=== PATIENT | male | born 1955 | race African-American/Black ===

== ENCOUNTER 2016-10-12 06:55 | Day surgery (SDC) | payer MEDICARE, OTHER ==
[2016-10-12] MEDS ORDERED: Lactated Ringers 1,000 ML IV SCH (07:30)
[2016-10-12] MEDS ORDERED: Propofol 200 MG/20 ML SDV IV ONE (09:00)
[2016-10-12] MEDS ORDERED: Simethicone Drops 40 MG/0.6 ML 30 ML Bottle ONE (09:16)
--- NOTE | 2016-10-12 09:36 | PCM.OPNOTE ---
- General Post-Op/Procedure Note Date of Surgery/Procedure: 10/12/16 Operative Procedure(s): c scope with bx Findings: transverse colon polyp Pre Op Diagnosis: screening Post-Op Diagnosis: transverse colon polyp Anesthesia Technique: MAC (s) Primary Surgeon: Rick Trinidad Anesthesia Provider: Jorge Mix Pathology: transverse colon polyp Complications: None Condition: Good Free Text/Narrative:: see dictation
--- NOTE | 2016-10-12 10:13 | OR ---
DATE OF OPERATION: 10/12/2016 SURGEON: Rick Trinidad MD PROCEDURE PERFORMED: Colonoscopy with cold forceps biopsy. PREOPERATIVE DIAGNOSIS: Need for screening colonoscope. POSTOPERATIVE DIAGNOSIS: Transverse colon polyp. INDICATIONS FOR PROCEDURE: This is a 61-year-old black male who is referred for his initial screening colonoscopy. He was offered and accepted same. DESCRIPTION OF OPERATION: After an excellent IV sedation was administered, digital rectal exam was performed. No marked abnormality was noted. Flexible colonoscope was inserted and advanced to the cecum without difficulty. The prep was excellent. The following findings were noted. Ascending colon, unremarkable. Transverse colon, a small polypoid lesion, biopsied with cold biopsy forceps and sent for permanent. Descending colon, unremarkable. Sigmoid and rectum unremarkable. Colon was deflated. The scope was removed. The patient tolerated the procedure well, and was taken to recovery room in good condition. /[id number] /SRINIVASL
[2016-10-12 10:22] VITALS: BP 141/73
== END 2016-10-12 10:56 | disposition home or self-care (01) ==
LOC: FB.SDS 06:55
PROVIDERS: ATTEND Surgery
DX: Z12.11 Encounter for screening for malignant neoplasm of colon (principal); K63.5 Polyp of colon; E11.621 Type 2 diabetes mellitus with foot ulcer; E03.9 Hypothyroidism, unspecified; E66.9 Obesity, unspecified; E78.2 Mixed hyperlipidemia; E11.22 Type 2 diabetes mellitus with diabetic chronic kidney disease; I12.9 Hypertensive chronic kidney disease with stage 1 through stage 4 chronic kidney disease, or unspecified chronic kidney disease; N18.9 Chronic kidney disease, unspecified; I21.3 ST elevation (STEMI) myocardial infarction of unspecified site; Z79.4 Long term (current) use of insulin; Z79.899 Other long term (current) drug therapy; Z79.82 Long term (current) use of aspirin; Z98.890 Other specified postprocedural states; Z87.891 Personal history of nicotine dependence
CPT/HCPCS: 00810; 45380; 82962; 88305; A9270; J2704; J7120

== ENCOUNTER 2017-06-21 11:19 | Inpatient (IN) | payer MEDICARE, OTHER ==
[2017-06-21] MEDS ORDERED: Furosemide 100 MG/10 ML SDV IVPUSH ONE (12:36)
[2017-06-21] MEDS: Sodium Chloride 0.9% 10 ML Syringe FLUSH PRN (13:50)
[2017-06-21] MEDS ORDERED: Bisacodyl 5 MG Tab PO PRN (14:18)
--- NOTE | 2017-06-21 15:40 | PCM.HP ---
H&P History of Present Illness - General Date of Service: 06/21/17 Admit Problem/Dx: Admission Diagnosis/Problem Admission Diagnosis/Problem CHF, Congestive heart failure Source of Information: Patient History Limitations: Reports: No Limitations - History of Present Illness Initial Comments - Free Text/Narative: This is a 62-year-old -[place] gentleman that comes in to the clinic and sees the nurse practitioner today for 30 pound weight gain last month and half swollen testicles short of breath. She stated he walked and his saturations 84%. He has a history of CHF and has been in the hospital for this before. He is on Lasix 40 mg twice a day currently. He denies runny nose, sore throat, ear pain, nasal congestion, cough, wheezing, fevers or chills. He denies chest pain. He has amputation of the right leg in the left leg has some swelling. - Related Data Allergies/Adverse Reactions: Allergies Allergy/AdvReac Type Severity Reaction Status Date / Time No Known Allergies Allergy Verified 06/21/17 13:42 Home Medications: Home Meds Multivitamins/Min/Ca/FA/Iron [Thera-M] 1 tab PO DAILY 12/22/15 [History] Omeprazole 20 mg PO BID 12/22/15 [History] Spironolact/Hydrochlorothiazid [Spironolactone-HCTZ 25-25] 0.5 tab PO DAILY [History] amLODIPine [Norvasc] 5 mg PO DAILY PRN 12/22/15 [History] amLODIPine/Benazepril [Lotrel 5-10 MG] 1 cap PO DAILY 12/22/15 [History] atorvaSTATin [Lipitor] 40 mg PO DAILY 12/22/15 [History] Aspirin [Ecotrin] 81 mg PO DAILY 10/11/16 [History] Bisacodyl [Dulcolax] 10 mg PO DAILY PRN 10/11/16 [History] Clopidogrel Bisulfate [Clopidogrel] 75 mg PO DAILY 10/11/16 [History] Furosemide 40 mg PO BID 10/11/16 [History] Insulin Glargine,Hum.Rec.Anlog [Touyadirao Solostar] 14 units SQ DAILY 10/11/16 [ History] Levothyroxine [Synthroid] 100 mcg PO DAILY 10/11/16 [History] Beet Root 2 tab PO DAILY 06/21/17 [History] Cholecalciferol (Vitamin D3) [Vitamin D3] 2,000 unit PO DAILY 06/21/17 [History] Cinnamon Bark [Cinnamon] 1,000 mg PO BID 06/21/17 [History] Past Medical History HEENT History: Reports: Cataract, Impaired Vision Other HEENT History: DIABETIC RETINOPATHY Cardiovascular History: Reports: Blood Clots/VTE/DVT, Heart Failure, High Cholesterol, Hypertension, NE, SOB on Exertion Respiratory History: Reports: SOB Gastrointestinal History: Reports: None Genitourinary History: Reports: Chronic Renal Insuffiency, Renal Disease Other Genitourinary History: ORCHIETOMY R/T DIABETES, ERECTILE DYSFUNCTION Musculoskeletal History: Reports: Amputation, Other (See Below) Other Musculoskeletal History: OSTEOMYLITIS, BKA OF RIGHT LEG Neurological History: Reports: Migraines Psychiatric History: Reports: None Endocrine/Metabolic History: Reports: Diabetes, Type II, Hypothyroidism, Obesity /BMI 30+ Hematologic History: Reports: Anemia Other Immunologic History: MRSA, HEPATITIS C Oncologic (Cancer) History: Reports: None Dermatologic History: Reports: Psoriasis Other Dermatologic History: PT HAS VERY DRY SKIN TO LEFT LOWER LEG\FOOT. DRY FLAKY SKIN. - Infectious Disease History Infectious Disease History: Reports: Chicken Pox - Past Surgical History Head Surgeries/Procedures: Reports: None HEENT Surgical History: Reports: None Cardiovascular Surgical History: Reports: Coronary Artery Stent Respiratory Surgical History: Reports: None GI Surgical History: Reports: Colonoscopy Endocrine Surgical History: Reports: None Neurological Surgical History: Reports: None Musculoskeletal Surgical History: Reports: Amputation, ORIF Other Musculoskeletal Surgeries/Procedures:: FX SURGERY PER HX Oncologic Surgical History: Reports: None Dermatological Surgical History: Reports: None Social & Family History - Family History Family Medical History: Noncontributory Cardiac: Reports: NE Neurological: Reports: Cerebral Aneurysms - Tobacco Use Smoking Status *Q: Former Smoker Years of Tobacco use: 12 Used Tobacco, but Quit: Yes Month/Year Tobacco Last Used: 10/1981 Second Hand Smoke Exposure: No - Caffeine Use Caffeine Use: Reports: Tea - Alcohol Use Days Per Week of Alcohol Use: 0 Number of Drinks Per Day: 0 Total Drinks Per Week: 0 - Recreational Drug Use Recreational Drug Use: No Drug Use in Last 12 Months: No - Living Situation & Occupation Living situation: Reports: Single Occupation: Unemployed H&P Review of Systems - Review of Systems: Review Of Systems: See Below General: Reports: No Symptoms HEENT: Reports: No Symptoms Pulmonary: Reports: Shortness of Breath. Denies: No Symptoms, Wheezing, Pleuritic Chest Pain, Sputum Cardiovascular: Reports: Dyspnea on Exertion, Edema, Syncope. Denies: Chest Pain Gastrointestinal: Reports: No Symptoms Genitourinary: Reports: Other (Scrotal swelling otherwise negative) Musculoskeletal: Reports: No Symptoms, Other (Status post amputation) Skin: Reports: No Symptoms Psychiatric: Reports: No Symptoms Neurological: Reports: No Symptoms Hematologic/Lymphatic: Reports: No Symptoms Immunologic: Reports: No Symptoms Exam - Exam Exam: See Below - Vital Signs Vital Signs: Last Vital Signs Temp 98.4 F 06/21/17 12:45 Pulse 81 06/21/17 12:45 Resp 24 H 06/21/17 12:45 BP 159/68 H 06/21/17 12:45 Pulse Ox 89 L 06/21/17 12:45 Weight: 314 lb 6 oz - Exam General: Alert, Oriented, Cooperative HEENT: PERRLA, Conjunctiva Clear, EACs Clear, EOMI, Hearing Intact, Mucosa Moist & [place], Posterior Pharynx Clear, TMs Clear Neck: Supple, Trachea Midline, Full Range of Motion, Lymphadenopathy Lungs: Clear to Auscultation, Decreased Breath Sounds, Crackles. No: Rales, Rhonchi Cardiovascular: Regular Rate, Regular Rhythm, Normal S1, Normal S2. No: Bradycardia, Tachycardia, Systolic Murmur, Diastolic Murmur GI/Abdominal Exam: Normal Bowel Sounds, Soft, Non-Tender, No Organomegaly, No Distention, No Abnormal Bruit, No Mass Back Exam: Normal Inspection, Full Range of Motion Extremities: Normal Range of Motion, Non-Tender, Pedal Edema, Other (Amputation) Skin: Warm, Dry, Intact Neurological: Normal Speech, Normal Tone Neuro Extensive - Mental Status: Alert, Oriented x3, Normal Mood/Affect, Normal Cognition, Memory Intact Neuro Extensive - Motor, Sensory, Reflexes: Normal Gait (With prosthesis) - Problem List (1) Palliative care encounter SNOMED Code(s): 694768643 ICD Code: Z51.5 - ENCOUNTER FOR PALLIATIVE CARE Status: Acute Current Visit: Yes (2) Anemia SNOMED Code(s): 976251521 ICD Code: D64.9 - ANEMIA, UNSPECIFIED Status: Acute Current Visit: No Problem Details: Cause is unlcar,but appears chronic. He is on Iron replacement. Will need further work up later,but we will Type and cross and give a unit or two tomorrow,once diuresed adequately (3) CKD (chronic kidney disease) stage 3, GFR 30-59 ml/min SNOMED Code(s): 747911924 ICD Code: N18.3 - CHRONIC KIDNEY DISEASE, STAGE 3 (MODERATE) Status: Acute Current Visit: No Problem Details: Repeat BMP in AM. Diuress liberally (4) Congestive heart failure, diastolic, left, w/preserved LV function, NYHA class 4 SNOMED Code(s): 841596810, 319748072, 140485714, 579477697 ICD Code: I50.30 - UNSPECIFIED DIASTOLIC (CONGESTIVE) HEART FAILURE Status : Acute Current Visit: No (5) Diabetes type 2, controlled SNOMED Code(s): 44226183 ICD Code: E11.9 - TYPE 2 DIABETES MELLITUS WITHOUT COMPLICATIONS Status: Acute Current Visit: No Problem Details: SSI,accuchecks (6) HTN (hypertension) SNOMED Code(s): 79273164 ICD Code: I10 - ESSENTIAL (PRIMARY) HYPERTENSION Status: Chronic Current Visit: No Qualifiers: (7) Obesity SNOMED Code(s): 801324814, 018802073 ICD Code: E66.9 - OBESITY, UNSPECIFIED Status: Chronic Current Visit: No Problem List Initiated/Reviewed/Updated: Yes Orders Last 24hrs: Active Orders 24 hr Category Date Time Status Patient Status [ADT] Routine ADT 06/21/17 12:32 Active Blood Glucose Check, Bedside [RC] 07,1130,1730,21 Care 06/21/17 12:32 Active Cardiac Monitoring [RC] 08,16,00 Care 06/21/17 12:34 Active Height and Weight [RC] 06 Care 06/21/17 12:32 Active Intake and Output [RC] 06,14,22 Care 06/21/17 12:33 Active Oxygen Therapy [RC] PRN Care 06/21/17 12:32 Active Up ad Radames [RC] ASDIRECTED Care 06/21/17 12:32 Active Vital Signs [RC] 04,08,12,16,20,00 Care 06/21/17 12:32 Active 2 Gram Sodium Diet [DIET] Diet 06/21/17 Dinner Active Consistent Carbohydrate Diet [DIET] Diet 06/21/17 Dinner Active CBC WITH AUTO DIFF [HEME] AM Lab 06/22/17 05:11 Ordered COMPREHENSIVE METABOLIC PN,CMP [CHEM] AM Lab 06/22/17 05:11 Ordered UA W/MICROSCOPIC [URIN] Routine Lab 06/21/17 15:28 Ordered Aspirin [Halfprin] Med 06/22/17 09:00 Active 81 mg PO DAILY Benazepril [Lotensin] Med 06/22/17 09:00 Active 10 mg PO DAILY Bisacodyl [Dulcolax] Med 06/21/17 14:18 Active 10 mg PO DAILY PRN Cholecalciferol (Vitamin D3) [Vitamin D3] Med 06/22/17 09:00 Active 2,000 units PO DAILY Clopidogrel [Plavix] Med 06/22/17 09:00 Active 75 mg PO DAILY Hydrochlorothiazide Med 06/22/17 09:00 Active 12.5 mg PO DAILY Insulin Glargine,Hum.Rec.Anlog [Toujeo Solostar] Med 06/22/17 09:00 Ordered 14 units SQ DAILY Levothyroxine [Synthroid] Med 06/22/17 09:00 Active 100 mcg PO DAILY Multivitamins/Minerals [Vitamins and Minerals] Med 06/22/17 09:00 Active 1 tab PO DAILY Pantoprazole [ProTONIX] Med 06/21/17 21:00 Active 40 mg PO BID@0600,2100 SitaGLIPtin [Januvia] Med 06/22/17 09:00 Ordered 100 mg PO DAILY Sodium Chloride 0.9% [Saline Flush] Med 06/21/17 12:32 Active 10 ml FLUSH ASDIRECTED PRN Spironolactone [Aldactone] Med 06/22/17 09:00 Active 12.5 mg PO DAILY amLODIPine [Norvasc] Med 06/22/17 09:00 Active 5 mg PO DAILY amLODIPine [Norvasc] Med 06/22/17 09:00 Active 5 mg PO DAILY PRN atorvaSTATin [Lipitor] Med 06/22/17 09:00 Active 40 mg PO DAILY Peripheral IV Insertion Adult [OM.PC] Routine Oth 06/21/17 12:32 Ordered Sequential Compression Device [OM.PC] Per Unit Routine Oth 06/21/17 12:34 Ordered Resuscitation Status Routine Resus Stat 06/21/17 12:32 Ordered Medication Orders Amlodipine Besylate (Norvasc) 5 mg PO DAILY PRN PRN Reason: SYSTOLIC BP>100 Amlodipine Besylate (Norvasc) 5 mg PO DAILY [facility] Aspirin (Halfprin) 81 mg PO DAILY ARNULFO Atorvastatin Calcium (Lipitor) 40 mg PO DAILY ARNULFO Benazepril HCl (Lotensin) 10 mg PO DAILY ARNULFO Bisacodyl (Dulcolax) 10 mg PO DAILY PRN PRN Reason: Constipation Cholecalciferol (Vitamin D3) 2,000 units PO DAILY [facility] Clopidogrel Bisulfate (Plavix) 75 mg PO DAILY ARNULFO Hydrochlorothiazide (Hydrochlorothiazide) 12.5 mg PO DAILY ARNULFO Levothyroxine Sodium (Synthroid) 100 mcg PO DAILY [facility] Multivitamins/Minerals (Vitamins And Minerals) 1 tab PO DAILY [facility] Non-Formulary Medication (Insulin Glargine,Hum.Rec.Anlog [Chano Botello]) 14 units SQ DAILY [facility] Pantoprazole Sodium (Protonix) 40 mg PO BID@0600,2100 [facility] Sitagliptin Phosphate (Januvia) 100 mg PO DAILY [facility] Sodium Chloride (Saline Flush) 10 ml FLUSH ASDIRECTED PRN PRN Reason: Keep Vein Open Last Admin: 06/21/17 13:50 Dose: 10 ml Spironolactone (Aldactone) 12.5 mg PO DAILY [facility] Assessment/Plan Comment:: 1 admit for diuresis with Lasix. 2. Diabetic low-salt diet. 3. Up ad radames. 4.Patient had an echo in 2016 in [facility] that was reviewed. 5. Continue all his home meds except for his Lasix 6. EKG. 7. Cardiac monitoring. 8. Discussed living hernandez he wants to be full code.
[2017-06-21] MEDS: Furosemide 40 MG/4 ML VIAL IVPUSH SCH (21:14)
[2017-06-21] MEDS: Pantoprazole 40 MG Tab.CR PO SCH (21:14)
[2017-06-22] MEDS: Pantoprazole 40 MG Tab.CR PO SCH ×2 (06:19→21:30)
[2017-06-22] MEDS: Sodium Chloride 0.9% 10 ML Syringe FLUSH PRN (08:32)
[2017-06-22] MEDS: amLODIPine 5 MG Tab PO SCH (08:32)
[2017-06-22] MEDS: Furosemide 40 MG/4 ML VIAL IVPUSH SCH ×2 (08:32→21:30)
[2017-06-22] MEDS: Benazepril 10 MG Tab PO SCH (08:32)
[2017-06-22] MEDS: Spironolactone 25 MG Tab PO SCH (08:33)
[2017-06-22] MEDS: Hydrochlorothiazide 12.5 MG Cap PO SCH (08:33)
[2017-06-22] MEDS: Aspirin 81 MG Tab.EC PO SCH (08:34)
[2017-06-22] MEDS: Cholecalciferol (Vitamin D3) 1,000 Unit Tab PO SCH (08:34)
[2017-06-22] MEDS: atorvaSTATin 40 MG Tab PO SCH (08:34)
[2017-06-22] MEDS: Clopidogrel 75 MG Tab PO SCH (08:34)
[2017-06-22] MEDS: Levothyroxine 100 MCG Tab PO SCH (08:34)
[2017-06-22] MEDS: Multivitamins, Therapeutic with Minerals Tab PO SCH (08:35)
[2017-06-22] MEDS: Insulin Detemir 100 Units/ML 3 ML Pen SUBCUT SCH (08:46)
[2017-06-22] MEDS ORDERED: amLODIPine 5 MG Tab PO PRN (09:00)
--- NOTE | 2017-06-22 10:07 | PCM.PN ---
- General Info Date of Service: 06/22/17 Subjective Update: Mr Esposito was admitted yesterday due to CHF exacerbation,and feels much better today. He has diuresed well, but still has some shortness of breath on ambulation. He is off O2. Functional Status: Reports: Pain Controlled - Review of Systems General: Reports: No Symptoms HEENT: Reports: No Symptoms Pulmonary: Reports: Shortness of Breath, Cough Cardiovascular: Reports: Dyspnea on Exertion, Orthopnea Gastrointestinal: Reports: No Symptoms Genitourinary: Reports: No Symptoms - Patient Data Vitals - Most Recent: Last Vital Signs Temp 98 F 06/22/17 04:00 Pulse 66 06/22/17 04:00 Resp 18 06/22/17 04:00 BP 144/80 H 06/22/17 08:32 Pulse Ox 95 06/22/17 04:00 Weight - Most Recent: 142.519 kg I&O - Last 24 Hours: Intake & Output 06/21/17 06/22/17 06/22/17 22:59 06:59 14:59 Output Total 725 900 Balance -725 -900 Lab Results Last 24 Hours: Laboratory Results - last 24 hr 06/21/17 06/21/17 06/21/17 Range/Units 15:30 17:38 19:05 WBC (4.5-12.0) X10-3/uL RBC (4.30-5.75) x10(6)uL Hgb (11.5-15.5) g/dL Hct (30.0-51.3) % MCV (80-96) fL MCH (27.7-33.6) pg MCHC (32.2-35.4) g/dL RDW (11.5-15.5) % Plt Count (125-369) X10(3)uL MPV (7.4-10.4) fL Neut % (Auto) (46-82) % Lymph % (Auto) (13-37) % [place] % (Auto) (4-12) % Eos % (Auto) (1.0-5.0) % Baso % (Auto) (0-2) % Neut # (Auto) (1.6-8.3) # Lymph # (Auto) (0.6-5.0) # [place] # (Auto) (0.0-1.3) # Eos # (Auto) (0.0-0.8) # Baso # (Auto) (0.0-0.2) # Sodium (135-145) mmol/L Potassium (3.5-5.3) mmol/L Chloride (100-110) mmol/L Carbon Dioxide (21-32) mmol/L BUN (7-18) mg/dL Creatinine (0.70-1.30) mg/dL Est Cr Clr Drug Dosing mL/min Estimated GFR (MDRD) (>60) BUN/Creatinine Ratio (9-20) Glucose (80-116) mg/dL POC Glucose 139 H (80-116) mg/dL Calcium (8.6-10.2) mg/dL Total Bilirubin (0.1-1.3) mg/dL AST (5-25) IU/L ALT (12-36) U/L Alkaline Phosphatase (56-112) IU/L NT-Pro-B Natriuret Pep 4847 H* (<=125) pg/mL Total Protein (6.0-8.0) g/dL Albumin (3.2-4.6) g/dL Globulin g/dL Albumin/Globulin Ratio Urine Color Yellow (YELLOW) Urine Appearance Clear (CLEAR) Urine pH 5.0 (5.0-6.5) Ur Specific [place] 1.010 (1.010-1.025) Urine Protein 30 H (NEGATIVE) mg/dL Urine Glucose (UA) Normal (NEGATIVE) mg/dL Urine Ketones Negative (NEGATIVE) mg/dL Urine Occult Blood Negative (NEGATIVE) Urine Nitrite Negative (NEGATIVE) Urine Bilirubin Negative (NEGATIVE) Urine Urobilinogen Normal (NEGATIVE) mg/dL Ur Leukocyte Esterase Negative (NEGATIVE) Urine RBC 0-5 (0) Urine WBC 0-5 (0) Ur Squamous Epith Cells Moderate H (NS,R,O) Urine Bacteria Moderate H (NS) 06/21/17 06/22/17 06/22/17 Range/Units 19:55 06:15 06:15 WBC 7.3 (4.5-12.0) X10-3/uL RBC 3.63 L (4.30-5.75) x10(6)uL Hgb 8.5 L (11.5-15.5) g/dL Hct 27.5 L (30.0-51.3) % MCV 75.7 L (80-96) fL MCH 23.5 L (27.7-33.6) pg MCHC 31.0 L (32.2-35.4) g/dL RDW 16.8 H (11.5-15.5) % Plt Count 147 (125-369) X10(3)uL MPV 13.4 H (7.4-10.4) fL Neut % (Auto) 65.7 (46-82) % Lymph % (Auto) 23.0 (13-37) % [place] % (Auto) 9.0 (4-12) % Eos % (Auto) 2 (1.0-5.0) % Baso % (Auto) 0 (0-2) % Neut # (Auto) 4.8 (1.6-8.3) # Lymph # (Auto) 1.7 (0.6-5.0) # [place] # (Auto) 0.7 (0.0-1.3) # Eos # (Auto) 0.1 (0.0-0.8) # Baso # (Auto) 0.0 (0.0-0.2) # Sodium 143 (135-145) mmol/L Potassium 4.4 (3.5-5.3) mmol/L Chloride 108 (100-110) mmol/L Carbon Dioxide 28 (21-32) mmol/L BUN 41 H (7-18) mg/dL Creatinine 2.1 H* (0.70-1.30) mg/dL Est Cr Clr Drug Dosing 30.91 mL/min Estimated GFR (MDRD) 39 L (>60) BUN/Creatinine Ratio 19.5 (9-20) Glucose 138 H (80-116) mg/dL POC Glucose 151 H (80-116) mg/dL Calcium 8.3 L (8.6-10.2) mg/dL Total Bilirubin 0.4 (0.1-1.3) mg/dL AST 54 H (5-25) IU/L ALT 65 H (12-36) U/L Alkaline Phosphatase 195 H (56-112) IU/L NT-Pro-B Natriuret Pep (<=125) pg/mL Total Protein 7.5 (6.0-8.0) g/dL Albumin 2.4 L (3.2-4.6) g/dL Globulin 5.1 g/dL Albumin/Globulin Ratio 0.5 Urine Color (YELLOW) Urine Appearance (CLEAR) Urine pH (5.0-6.5) Ur Specific [place] (1.010-1.025) Urine Protein (NEGATIVE) mg/dL Urine Glucose (UA) (NEGATIVE) mg/dL Urine Ketones (NEGATIVE) mg/dL Urine Occult Blood (NEGATIVE) Urine Nitrite (NEGATIVE) Urine Bilirubin (NEGATIVE) Urine Urobilinogen (NEGATIVE) mg/dL Ur Leukocyte Esterase (NEGATIVE) Urine RBC (0) Urine WBC (0) Ur Squamous Epith Cells (NS,R,O) Urine Bacteria (NS) Med Orders - Current: Current Medications Amlodipine Besylate (Norvasc) 5 mg PO DAILY PRN PRN Reason: SYSTOLIC BP>100 Amlodipine Besylate (Norvasc) 5 mg PO DAILY [facility] Last Admin: 06/22/17 08:32 Dose: 5 mg Aspirin (Halfprin) 81 mg PO DAILY [facility] Last Admin: 06/22/17 08:34 Dose: 81 mg Atorvastatin Calcium (Lipitor) 40 mg PO DAILY [facility] Last Admin: 06/22/17 08:34 Dose: 40 mg Benazepril HCl (Lotensin) 10 mg PO DAILY [facility] Last Admin: 06/22/17 08:32 Dose: 10 mg Bisacodyl (Dulcolax) 10 mg PO DAILY PRN PRN Reason: Constipation Cholecalciferol (Vitamin D3) 2,000 units PO DAILY [facility] Last Admin: 06/22/17 08:34 Dose: 2,000 units Clopidogrel Bisulfate (Plavix) 75 mg PO DAILY [facility] Last Admin: 06/22/17 08:34 Dose: 75 mg Furosemide (Lasix) 40 mg IVPUSH BID [facility] Last Admin: 06/22/17 08:32 Dose: 40 mg Hydrochlorothiazide (Hydrochlorothiazide) 12.5 mg PO DAILY [facility] Last Admin: 06/22/17 08:33 Dose: 12.5 mg Insulin Detemir (Levemir) 14 unit SUBCUT DAILY [facility] Last Admin: 06/22/17 08:46 Dose: 14 units Levothyroxine Sodium (Synthroid) 100 mcg PO DAILY [facility] Last Admin: 06/22/17 08:34 Dose: 100 mcg Multivitamins/Minerals (Vitamins And Minerals) 1 tab PO DAILY [facility] Last Admin: 06/22/17 08:35 Dose: 1 tab Pantoprazole Sodium (Protonix) 40 mg PO BID@0600,2100 [facility] Last Admin: 06/22/17 06:19 Dose: 40 mg Sodium Chloride (Saline Flush) 10 ml FLUSH ASDIRECTED PRN PRN Reason: Keep Vein Open Last Admin: 06/22/17 08:32 Dose: 10 ml Spironolactone (Aldactone) 12.5 mg PO DAILY [facility] Last Admin: 06/22/17 08:33 Dose: 12.5 mg Discontinued Medications Furosemide (Lasix) 80 mg IVPUSH NOW ONE Stop: 06/21/17 12:37 Last Admin: 06/21/17 13:50 Dose: 80 mg - Exam Quality Assessment: No: Supplemental Oxygen General: Alert HEENT: Pupils Equal Neck: Supple Lungs: Normal Respiratory Effort, Rales Cardiovascular: Regular Rate, Regular Rhythm Skin: Warm, Dry, Intact Psy/Mental Status: Alert, Normal Affect, Normal Mood EKG INTERPRETATION EKG Date: 06/21/17 Rhythm: NSR - Problem List & Annotations (1) Congestive heart failure, diastolic, left, w/preserved LV function, NYHA class 4 SNOMED Code(s): 043514060, 013047162, 406859068, 610106093 Code(s): I50.30 - UNSPECIFIED DIASTOLIC (CONGESTIVE) HEART FAILURE Status: Acute Current Visit: No (2) Hx of BKA Status: Chronic Current Visit: Yes Qualifiers: Laterality: right Qualified Code(s): Z89.511 - Acquired absence of right leg below knee (3) Anemia SNOMED Code(s): 538814864 Code(s): D64.9 - ANEMIA, UNSPECIFIED Status: Chronic Current Visit: No Qualifiers: Anemia type: due to chronic kidney disease Chronic kidney disease stage: stage 3 (moderate) Qualified Code(s): N18.3 - Chronic kidney disease, stage 3 (moderate); D63.1 - Anemia in chronic kidney disease (4) CKD (chronic kidney disease) stage 3, GFR 30-59 ml/min SNOMED Code(s): 342734658 Code(s): N18.3 - CHRONIC KIDNEY DISEASE, STAGE 3 (MODERATE) Status: Acute Current Visit: No Annotation/Comment:: Repeat BMP in AM. (5) Diabetes type 2, controlled SNOMED Code(s): 27241223 Code(s): E11.9 - TYPE 2 DIABETES MELLITUS WITHOUT COMPLICATIONS Status: Acute Current Visit: No Qualifiers: Diabetes mellitus regional intermodal truck driver insulin use: with regional intermodal truck driver use Diabetes mellitus complication status: with kidney complications Chronic kidney disease stage: stage 3 (moderate) Annotation/Comment:: SSI,accuchecks (6) HTN (hypertension) SNOMED Code(s): 00467451 Code(s): I10 - ESSENTIAL (PRIMARY) HYPERTENSION Status: Chronic Current Visit: No Qualifiers: Hypertension type: essential hypertension Qualified Code(s): I10 - Essential (primary) hypertension (7) Hypothyroid SNOMED Code(s): 85491298 Code(s): E03.9 - HYPOTHYROIDISM, UNSPECIFIED Status: Chronic Current Visit: No Qualifiers: Hypothyroidism type: unspecified Qualified Code(s): E03.9 - Hypothyroidism , unspecified Annotation/Comment:: Recheck TSH,continue home meds (8) Obesity SNOMED Code(s): 558530607, 380541267 Code(s): E66.9 - OBESITY, UNSPECIFIED Status: Chronic Current Visit: No - Problem List Review Problem List Initiated/Reviewed/Updated: Yes - My Orders Last 24 Hours: My Active Orders 06/23/17 05:11 BASIC METABOLIC PANEL,BMP [CHEM] AM PRO B-TYPE NATRIUR PEPT,BNPPRO [CHEM] DAILY TROPONIN I [CHEM] AM 06/23/17 09:33 Echo Comp wo Cont [US] Timed 06/24/17 05:11 PRO B-TYPE NATRIUR PEPT,BNPPRO [CHEM] DAILY - Plan Plan:: Shahbaz's last echocardiogram was in 2016. SUCH, I have ordered for repeat echocardiography tomorrow, & will continue with 40 mg of IV Lasix and repeat BMP ,BNP and CBC in the morning. His creatinine baseline is usually between 1.6 and 1.9, is 2.1 this morning. We'll keep an eye on it and repeat that tomorrow. He has chronic anemia,DUE TO ckd,stable.
[2017-06-23] MEDS: Pantoprazole 40 MG Tab.CR PO SCH (05:41)
[2017-06-23] MEDS: Sodium Chloride 0.9% 10 ML Syringe FLUSH PRN (08:50)
[2017-06-23] MEDS: Furosemide 40 MG/4 ML VIAL IVPUSH SCH ×2 (08:53→09:12)
[2017-06-23] MEDS: Spironolactone 25 MG Tab PO SCH (08:53)
[2017-06-23] MEDS: Aspirin 81 MG Tab.EC PO SCH (08:53)
[2017-06-23] MEDS: Hydrochlorothiazide 12.5 MG Cap PO SCH (08:53)
[2017-06-23] MEDS: Insulin Detemir 100 Units/ML 3 ML Pen SUBCUT SCH (08:54)
[2017-06-23] MEDS: amLODIPine 5 MG Tab PO SCH (08:55)
[2017-06-23] MEDS: Benazepril 10 MG Tab PO SCH (08:55)
[2017-06-23] MEDS: atorvaSTATin 40 MG Tab PO SCH (08:55)
[2017-06-23] MEDS: Levothyroxine 100 MCG Tab PO SCH (08:56)
[2017-06-23] MEDS: Clopidogrel 75 MG Tab PO SCH (08:56)
[2017-06-23] MEDS: Cholecalciferol (Vitamin D3) 1,000 Unit Tab PO SCH (08:57)
[2017-06-23] MEDS: Multivitamins, Therapeutic with Minerals Tab PO SCH (08:57)
[2017-06-23] MEDS ORDERED: Metolazone 2.5 MG Tab PO ONE (09:15)
[2017-06-23] MEDS ORDERED: Furosemide 40 MG Tab PO SCH (10:00)
[2017-06-23 12:58] VITALS: BP 177/93
--- NOTE | 2017-06-23 14:17 | PCM.DCSUM1 ---
Discharge Summary - Hospital Course Free Text/Narrative:: Date of admission: 06/21/17 Date of discharge: 06/23/17 Admission diagnosis: Congestive heart failure with anasarca, probably diastolic with preserved ejection fraction. Discharge diagnosis: Congestive heart failure with anasarca, improved, with ejection fraction 57% on preliminary echo report. Consults: None Procedures: Echocardiogram (see results below) History of present illness: Mr. Esposito is a 62-year-old -[place] male who over the last month has developed about a 30 pound weight gain, with swollen lower extremities up into the scrotum and testicles, shortness of breath. He presented to the clinic with saturations in the low 80s and was admitted for diuresis. Discharge instructions: Discharge to home. Follow-up early next week on Monday or Monday with his primary care provider for a BMP. Diuretics will likely need to be adjusted. Message sent through electronic medical record to primary care provider. Patient and provider aware of the pulmonary hypertension noted on imaging. - Discharge Data Discharge Date: 06/23/17 Discharge Disposition: Home, Self-Care 01 Condition: Good - Discharge Diagnosis/Problem(s) (1) Congestive heart failure, diastolic, left, w/preserved LV function, NYHA class 4 SNOMED Code(s): 516915522, 374407610, 496387794, 339831867 ICD Code: I50.30 - UNSPECIFIED DIASTOLIC (CONGESTIVE) HEART FAILURE Status : Acute Current Visit: No Problem Details: Patient diuresed with IV Lasix. On the day of discharge, was started on oral Lasix with the addition of Zaroxolyn every other day. Will be discharged home on this. Echocardiogram showed ejection fraction 56.7% which is similar to previous echo on 12/22/15 of 60%. Left ventricular hypertrophy, trace mitral regurgitation, sclerosis of the aortic valve with no regurgitation, severe pulmonary hypertension, mild tricuspid regurgitation, trace pulmonary regurgitation, technically difficult study due to patient body habitus. Official report still pending. Patient will be discharged home on diuretic therapy as above. Follow-up on Monday or Monday of next week for BMP to check renal function and follow weights daily. (2) Anasarca SNOMED Code(s): 330573512, 852642076 ICD Code: R60.1 - GENERALIZED EDEMA Status: Acute Current Visit: No Problem Details: Improved. Continue diuresis at home with Lasix and Zaroxolyn as above. (3) CKD (chronic kidney disease) stage 3, GFR 30-59 ml/min SNOMED Code(s): 599870084 ICD Code: N18.3 - CHRONIC KIDNEY DISEASE, STAGE 3 (MODERATE) Status: Acute Current Visit: No Problem Details: Monitor as outpatient with diuretic therapy. (4) Diabetes type 2, controlled SNOMED Code(s): 00942715 ICD Code: E11.9 - TYPE 2 DIABETES MELLITUS WITHOUT COMPLICATIONS Status: Acute Current Visit: No Problem Details: Continue once daily insulin at home. 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 We'll defer any further workup to the patient's PCP. Qualifiers: Anemia type: due to chronic kidney disease Chronic kidney disease stage: stage 3 (moderate) Qualified Code(s): N18.3 - Chronic kidney disease, stage 3 (moderate); D63.1 - Anemia in chronic kidney disease (6) HTN (hypertension) SNOMED Code(s): 77801929 ICD Code: I10 - ESSENTIAL (PRIMARY) HYPERTENSION Status: Chronic Current Visit: No Problem Details: Ran high into the 160s during hospitalization. After diuresis, reassess. Qualifiers: Hypertension type: essential hypertension Qualified Code(s): I10 - Essential (primary) hypertension - Patient Instructions Diet: Heart Healthy Diet, Low Sodium, Diabetic Diet Activity: No Strenuous Activities Driving: May Drive Today - Discharge Plan Prescriptions/Med Rec: Metolazone [Zaroxolyn] 2.5 mg PO ONETIME #30 tablet Spironolactone [Aldactone] 12.5 mg PO DAILY #30 tablet Home Medications: Home Meds Multivitamins/Min/Ca/FA/Iron [Thera-M] 1 tab PO DAILY 12/22/15 [History] Omeprazole 20 mg PO BID 12/22/15 [History] amLODIPine [Norvasc] 5 mg PO DAILY PRN 12/22/15 [History] amLODIPine/Benazepril [Lotrel 5-10 MG] 1 cap PO DAILY 12/22/15 [History] atorvaSTATin [Lipitor] 40 mg PO DAILY 12/22/15 [History] Aspirin [Ecotrin] 81 mg PO DAILY 10/11/16 [History] Bisacodyl [Dulcolax] 10 mg PO DAILY PRN 10/11/16 [History] Clopidogrel Bisulfate [Clopidogrel] 75 mg PO DAILY 10/11/16 [History] Furosemide 40 mg PO BID 10/11/16 [History] Insulin Glargine,Hum.Rec.Anlog [Toujeo Solostar] 14 units SQ DAILY 10/11/16 [ History] Levothyroxine [Synthroid] 100 mcg PO DAILY 10/11/16 [History] Beet Root 2 tab PO DAILY 06/21/17 [History] Cholecalciferol (Vitamin D3) [Vitamin D3] 2,000 unit PO DAILY 06/21/17 [History] Cinnamon Bark [Cinnamon] 1,000 mg PO BID 06/21/17 [History] Furosemide [Lasix] 40 mg PO BIDDIURETIC tablet 06/23/17 [Rx] Metolazone [Zaroxolyn] 2.5 mg PO ONETIME #30 tablet 06/23/17 [Rx] Spironolactone [Aldactone] 12.5 mg PO DAILY #30 tablet 06/23/17 [Rx] Patient Handouts: Venous Thromboembolism, Heart Failure, [id number] - Discharge Summary/Plan Comment DC Time >30 min.: Yes - General Info Date of Service: 06/23/17 Admission Dx/Problem (Free Text: On the day of discharge patient was much improved. He was no longer short of breath with ambulation. No chest pain. No nausea or vomiting. Lower extremity swelling on the left and throughout the thighs bilaterally and into the scrotum had reduced considerably. However his weight had only gone down by 2 or 3 pounds. - Patient Data Vitals - Most Recent: Last Vital Signs Temp 36.0 C 06/23/17 12:35 Pulse 75 06/23/17 12:35 Resp 18 06/23/17 12:35 BP 177/93 H 06/23/17 12:35 Pulse Ox 91 L 06/23/17 12:35 Weight - Most Recent: 141.634 kg I&O - Last 24 hours: Intake & Output 06/22/17 06/23/17 06/23/17 22:59 06:59 14:59 Output Total 697 124 0096 Balance -250 -400 -1000 Lab Results - Last 24 hrs: Laboratory Results - last 24 hr 06/22/17 06/22/17 06/23/17 Range/Units 17:35 21:33 05:20 Sodium (135-145) mmol/L Potassium (3.5-5.3) mmol/L Chloride (100-110) mmol/L Carbon Dioxide (21-32) mmol/L BUN (7-18) mg/dL Creatinine (0.70-1.30) mg/dL Est Cr Clr Drug Dosing mL/min Estimated GFR (MDRD) (>60) BUN/Creatinine Ratio (9-20) Glucose (80-116) mg/dL POC Glucose 120 H 152 H 122 H (80-116) mg/dL Calcium (8.6-10.2) mg/dL Troponin I (<0.017-0.056) ng/mL NT-Pro-B Natriuret Pep (<=125) pg/mL 06/23/17 06/23/17 06/23/17 Range/Units 07:31 07:31 11:19 Sodium 142 (135-145) mmol/L Potassium 4.6 (3.5-5.3) mmol/L Chloride 106 (100-110) mmol/L Carbon Dioxide 28 (21-32) mmol/L BUN 38 H (7-18) mg/dL Creatinine 2.0 H* (0.70-1.30) mg/dL Est Cr Clr Drug Dosing 32.46 mL/min Estimated GFR (MDRD) 41 L (>60) BUN/Creatinine Ratio 19.0 (9-20) Glucose 124 H (80-116) mg/dL POC Glucose 198 H (80-116) mg/dL Calcium 8.7 (8.6-10.2) mg/dL Troponin I < 0.017 L (<0.017-0.056) ng/mL NT-Pro-B Natriuret Pep 3747 H* (<=125) pg/mL Med Orders - Current: Current Medications Amlodipine Besylate (Norvasc) 5 mg PO DAILY PRN PRN Reason: SYSTOLIC BP>100 Amlodipine Besylate (Norvasc) 5 mg PO DAILY [facility] Last Admin: 06/23/17 08:55 Dose: 5 mg Aspirin (Halfprin) 81 mg PO DAILY [facility] Last Admin: 06/23/17 08:53 Dose: 81 mg Atorvastatin Calcium (Lipitor) 40 mg PO DAILY [facility] Last Admin: 06/23/17 08:55 Dose: 40 mg Benazepril HCl (Lotensin) 10 mg PO DAILY [facility] Last Admin: 06/23/17 08:55 Dose: 10 mg Bisacodyl (Dulcolax) 10 mg PO DAILY PRN PRN Reason: Constipation Cholecalciferol (Vitamin D3) 2,000 units PO DAILY [facility] Last Admin: 06/23/17 08:57 Dose: 2,000 units Clopidogrel Bisulfate (Plavix) 75 mg PO DAILY [facility] Last Admin: 06/23/17 08:56 Dose: 75 mg Furosemide (Lasix) 40 mg PO BIDDIURETIC [facility] Last Admin: 06/23/17 10:14 Dose: 40 mg Insulin Detemir (Levemir) 14 unit SUBCUT DAILY [facility] Last Admin: 06/23/17 08:54 Dose: 14 units Levothyroxine Sodium (Synthroid) 100 mcg PO DAILY [facility] Last Admin: 06/23/17 08:56 Dose: 100 mcg Multivitamins/Minerals (Vitamins And Minerals) 1 tab PO DAILY [facility] Last Admin: 06/23/17 08:57 Dose: 1 tab Pantoprazole Sodium (Protonix) 40 mg PO BID@0600,2100 [facility] Last Admin: 06/23/17 05:41 Dose: 40 mg Sodium Chloride (Saline Flush) 10 ml FLUSH ASDIRECTED PRN PRN Reason: Keep Vein Open Last Admin: 06/22/17 08:32 Dose: 10 ml Spironolactone (Aldactone) 12.5 mg PO DAILY [facility] Last Admin: 06/23/17 08:53 Dose: Not Given Discontinued Medications Furosemide (Lasix) 80 mg IVPUSH NOW ONE Stop: 06/21/17 12:37 Last Admin: 06/21/17 13:50 Dose: 80 mg Furosemide (Lasix) 40 mg IVPUSH BID [facility] Last Admin: 06/23/17 09:12 Dose: Not Given Hydrochlorothiazide (Hydrochlorothiazide) 12.5 mg PO DAILY [facility] Last Admin: 06/23/17 08:53 Dose: Not Given Metolazone (Zaroxolyn) 2.5 mg PO ONETIME ONE Stop: 06/23/17 09:16 Last Admin: 06/23/17 10:13 Dose: 2.5 mg - Exam General: Reports: Alert, Oriented, Cooperative, No Acute Distress HEENT: Reports: Pupils Equal, Pupils Reactive Neck: Reports: Supple Lungs: Reports: Clear to Auscultation, Normal Respiratory Effort Cardiovascular: Reports: Regular Rate, Regular Rhythm, No Murmurs GI/Abdominal Exam: Normal Bowel Sounds, Soft, Non-Tender, No Distention (The lower abdominal skin under the pannus does show some edema. Much improved per patient than previous.) (Male) Exam: Scrotal Swelling (The patient has significant scrotal edema. It is bilateral. Edema extends down through the thighs bilaterally and into the left lower extremity with a woody stasis dermatitis changes in the lower leg.) Extremities: Pedal Edema Skin: Reports: Intact Psy/Mental Status: Reports: Alert, Normal Affect, Normal Mood
== END 2017-06-23 14:42 | disposition home or self-care (01) | DRG 291 ==
LOC: FB.MS 12:24
PROVIDERS: ADMIT Family Medicine; ATTEND Family Medicine
DX: I13.0 Hypertensive heart and chronic kidney disease with heart failure and stage 1 through stage 4 chronic kidney disease, or unspecified chronic kidney disease (principal); I50.33 Acute on chronic diastolic (congestive) heart failure; Z68.43 Body mass index [BMI] 50.0-59.9, adult; N18.3 Chronic kidney disease, stage 3 (moderate); E11.22 Type 2 diabetes mellitus with diabetic chronic kidney disease; Z79.4 Long term (current) use of insulin; Z87.891 Personal history of nicotine dependence; D63.1 Anemia in chronic kidney disease; E03.9 Hypothyroidism, unspecified; E11.319 Type 2 diabetes mellitus with unspecified diabetic retinopathy without macular edema; E78.00 Pure hypercholesterolemia, unspecified; Z89.511 Acquired absence of right leg below knee; Z86.718 Personal history of other venous thrombosis and embolism; I25.2 Old myocardial infarction; Z86.14 Personal history of Methicillin resistant Staphylococcus aureus infection; E66.9 Obesity, unspecified; N50.89 Other specified disorders of the male genital organs; Z86.19 Personal history of other infectious and parasitic diseases; Z95.5 Presence of coronary angioplasty implant and graft; H54.7 Unspecified visual loss; Z79.82 Long term (current) use of aspirin
CPT/HCPCS: 36415; 80048; 80053; 81001; 82962; 83880; 84484; 85025; 93005; 93306; A9270; A9270-GY; J1940; J7050

== ENCOUNTER 2020-03-27 01:21 | Emergency (ER) | payer OTHER, MEDICARE ==
[2020-03-27 01:44] VITALS: BP 184/89; PULSE 87
--- NOTE | 2020-03-27 01:59 | EDM.PDOC ---
ED HPI GENERAL MEDICAL PROBLEM - General Chief Complaint: Skin Complaint Stated Complaint: LEG INJURY Time Seen by Provider: 03/27/20 01:50 Source of Information: Reports: Patient History Limitations: Reports: No Limitations - History of Present Illness INITIAL COMMENTS - FREE TEXT/NARRATIVE: 64-year-old male who reports that at approximately 10:30 PM tonight, he was at the gym and was working out and he bumped his left anterior lower leg against one of the workout chairs and sustained a scrape to this area. He reports there was some bleeding from it and the bleeding has continued despite him applying direct pressure to it that caused him to come into the emergency department for evaluation. He really has no pain in the area. He rates his pain as a 0/10. There were no other injuries. He is on Plavix. No antecedent symptoms. He drove himself to the emergency department. There were no other associated signs or symptoms. There were no other modifying factors. 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: Dressing(s) - Related Data Allergies Allergy/AdvReac Type Severity Reaction Status Date / Time No Known Allergies Allergy Verified 06/21/17 13:42 Home Meds: Home Meds Multivitamins/Min/Ca/FA/Iron [Thera-M] 1 tab PO DAILY 12/22/15 [History] Omeprazole 20 mg PO BID 12/22/15 [History] amLODIPine [Norvasc] 5 mg PO DAILY PRN 12/22/15 [History] amLODIPine/Benazepril [Lotrel 5-10 MG] 1 cap PO DAILY 12/22/15 [History] atorvaSTATin [Lipitor] 40 mg PO DAILY 12/22/15 [History] Aspirin [Ecotrin EC] 81 mg PO DAILY 10/11/16 [History] Bisacodyl [Dulcolax] 10 mg PO DAILY PRN 10/11/16 [History] Clopidogrel Bisulfate [Clopidogrel] 75 mg PO DAILY 10/11/16 [History] Insulin Glargine,Hum.Rec.Anlog [Toujeo Solostar] 14 units SQ DAILY 10/11/16 [History] Levothyroxine [Synthroid] 100 mcg PO DAILY 10/11/16 [History] Beet Root 2 tab PO DAILY 06/21/17 [History] Cholecalciferol (Vitamin D3) [Vitamin D3] 2,000 unit PO DAILY 06/21/17 [History] Cinnamon Bark [Cinnamon] 1,000 mg PO BID 06/21/17 [History] Furosemide [Lasix] 40 mg PO BIDDIURETIC tablet 06/23/17 [Rx] Spironolactone [Aldactone] 12.5 mg PO DAILY #30 tablet 06/23/17 [Rx] metOLazone [Zaroxolyn] 2.5 mg PO ONETIME #30 tablet 06/23/17 [Rx] Past Medical History HEENT History: Reports: Cataract, Impaired Vision Other HEENT History: DIABETIC RETINOPATHY Cardiovascular History: Reports: Blood Clots/VTE/DVT, Heart Failure, High Cholesterol, Hypertension, CA, SOB on Exertion Genitourinary History: Reports: Chronic Renal Insuffiency, Renal Disease Other Genitourinary History: ORCHIETOMY R/T DIABETES, ERECTILE DYSFUNCTION Musculoskeletal History: Reports: Amputation, Other (See Below) Other Musculoskeletal History: OSTEOMYLITIS, BKA OF RIGHT LEG Neurological History: Reports: Migraines Endocrine/Metabolic History: Reports: Diabetes, Type II, Hypothyroidism, Obesity/BMI 30+ Hematologic History: Reports: Anemia Other Immunologic History: MRSA, HEPATITIS C Dermatologic History: Reports: Psoriasis Other Dermatologic History: PT HAS VERY DRY SKIN TO LEFT LOWER LEG\FOOT. DRY FLAKY SKIN. - Infectious Disease History Infectious Disease History: Reports: Chicken Pox - Past Surgical History Cardiovascular Surgical History: Reports: Coronary Artery Stent GI Surgical History: Reports: Colonoscopy Male Surgical History: Reports: Other (See Below) (Right orchiectomy) Musculoskeletal Surgical History: Reports: Amputation (Right [id number]), ORIF Other Musculoskeletal Surgeries/Procedures:: FX SURGERY PER HX Social & Family History - Family History Cardiac: Reports: CA Neurological: Reports: Cerebral Aneurysms - Tobacco Use Tobacco Use Status *Q: Never Tobacco User - Caffeine Use Caffeine Use: Reports: Coffee - Alcohol Use Alcohol Use History: No - Recreational Drug Use Recreational Drug Use: No - Living Situation & Occupation Living situation: Reports: Single Occupation: Unemployed ED ROS GENERAL - Review of Systems Review Of Systems: See Below Constitutional: Reports: No Symptoms HEENT: Reports: No Symptoms Respiratory: Reports: No Symptoms Cardiovascular: Reports: No Symptoms Endocrine: Reports: No Symptoms GI/Abdominal: Reports: No Symptoms : Reports: No Symptoms Musculoskeletal: Reports: No Symptoms Skin: Reports: Wound (Abrasion on left anterior lower leg) Neurological: Reports: No Symptoms Hematologic/Lymphatic: Reports: Easy Bleeding (On Plavix) Immunologic: Reports: Other (Last tetanus immunization was one year ago. So he is up-to-date.) ED EXAM, SKIN/RASH Exam: See Below Exam Limited By: No Limitations General Appearance: Alert, No Apparent Distress, Obese Eye Exam: Bilateral Eye: EOMI, Normal Inspection Ears: Normal External Exam, Hearing Grossly Normal Nose: Normal Inspection, Normal Mucosa, No Blood Throat/Mouth: Normal Inspection, Normal Oropharynx, Normal Voice, No Airway Compromise Head: Atraumatic, Normocephalic Neck: Normal Inspection, Supple, Non-Tender, Full Range of Motion Respiratory/Chest: No Respiratory Distress, Lungs Clear, Normal Breath Sounds, No Accessory Muscle Use, Chest Non-Tender Cardiovascular: Normal Peripheral Pulses, Regular Rate, Rhythm, No Murmur Peripheral Pulses: 2+: Radial (L), Radial (R) GI/Abdominal: Normal Bowel Sounds, Soft, Non-Tender, No Mass Back Exam: Normal Inspection, Full Range of Motion Extremities: Normal Range of Motion, Non-Tender, Normal Capillary Refill, Pedal Edema, Other (Status post below the knee amputation on the right. Chronic venous stasis changes in the left leg) Neurological: Alert, Oriented, CN II-XII Intact, Normal Cognition, No Motor/Sensory Deficits Skin: Warm, Dry, Normal Color, Wound/Incision (Abrasion on anterior left lower leg.) Location, Skin: Lower Extremity, Left Characteristics: Linear Course - Vital Signs Last Recorded V/S: Last Vital Signs Temp 36.7 C 03/27/20 01:40 Pulse 87 03/27/20 01:43 Resp 18 03/27/20 01:40 BP 184/89 H 03/27/20 01:43 Pulse Ox 100 03/27/20 01:40 - Re-Assessments/Exams Free Text/Narrative Re-Assessment/Exam: 03/27/20 02:10: Patient does have some venous oozing from the abrasion on the anterior left lower leg. It is controlled with direct pressure. The nursing staff will apply result of this area with an Caio wrap over the left lower leg, ankle and foot. He should leave this intact for the next 24 hours. He should apply steady direct pressure to the area or if there is any additional bleeding. Wound care instructions were given to the patient. Departure - Departure Time of Disposition: 02:22 Disposition: Home, Self-Care 01 Clinical Impression: Abrasion, left lower leg, initial encounter, Hypertension, uncontrolled - Discharge Information Instructions: Abrasion, [id number], Hypertension, Adult, [id number] Forms: ED Department Discharge Additional Instructions: The continued oozing is secondary to you on the Plavix. You just need to continue with the Caio wrap pressure type dressing for the next 24 hours and then as needed in the future to control the bleeding. Your blood pressure was elevated in the emergency department and you should follow-up with your primary provider in regard to this. Back to the emergency department for redness, increasing pain, fever or any other concerning sign or symptom. Sepsis Event Note (ED) - Evaluation Sepsis Screening Result: No Definite Risk - Focused Exam Vital Signs: Vital Signs Temp Pulse Resp BP Pulse Ox 03/27/20 01:43 87 184/89 H 03/27/20 01:40 36.7 C 91 18 222/102 H 100
== END 2020-03-27 02:29 | disposition home or self-care (01) ==
LOC: FB.ED 01:21
DX: S80.812A Abrasion, left lower leg, initial encounter (principal); I10 Essential (primary) hypertension; I50.9 Heart failure, unspecified; E78.00 Pure hypercholesterolemia, unspecified; I25.2 Old myocardial infarction; N18.9 Chronic kidney disease, unspecified; I13.0 Hypertensive heart and chronic kidney disease with heart failure and stage 1 through stage 4 chronic kidney disease, or unspecified chronic kidney disease; E11.22 Type 2 diabetes mellitus with diabetic chronic kidney disease; E03.9 Hypothyroidism, unspecified; E66.9 Obesity, unspecified; E11.319 Type 2 diabetes mellitus with unspecified diabetic retinopathy without macular edema; Z79.82 Long term (current) use of aspirin; Z79.02 Long term (current) use of antithrombotics/antiplatelets; Z79.4 Long term (current) use of insulin; Z79.899 Other long term (current) drug therapy; W22.8XXA Striking against or struck by other objects, initial encounter; Y92.39 Other specified sports and athletic area as the place of occurrence of the external cause
CPT/HCPCS: 99282; 99283

== ENCOUNTER 2020-07-09 14:15 | Inpatient (IN) | payer MEDICARE ==
[2020-07-09] MEDS ORDERED: Furosemide 40 MG/4 ML VIAL IVPUSH ONE (14:33)
[2020-07-09] MEDS: Nitroglycerin/D5W 25 MG/250 ML BOTTLE IV SCH ×2 (15:12→23:18)
--- NOTE | 2020-07-09 15:44 | EDM.PDOC ---
ED HPI GENERAL MEDICAL PROBLEM - General Stated Complaint: SOB Time Seen by Provider: 07/09/20 14:30 Source of Information: Reports: Patient History Limitations: Reports: No Limitations - History of Present Illness INITIAL COMMENTS - FREE TEXT/NARRATIVE: c/o sob wt up in 10 lbs in past wk, on furosemide daily, has not inc'd dose went to clinic who sent him here no CP has inc'd edema - Related Data Allergies Allergy/AdvReac Type Severity Reaction Status Date / Time No Known Allergies Allergy Verified 06/21/17 13:42 Home Meds: Home Meds Multivitamins/Min/Ca/FA/Iron [Thera-M] 1 tab PO DAILY 12/22/15 [History] Omeprazole 20 mg PO BID 12/22/15 [History] amLODIPine/Benazepril [Lotrel 5-10 MG] 1 cap PO DAILY 12/22/15 [History] Aspirin [Ecotrin EC] 81 mg PO DAILY 10/11/16 [History] Clopidogrel Bisulfate [Clopidogrel] 75 mg PO DAILY 10/11/16 [History] Levothyroxine [Synthroid] 100 mcg PO DAILY 10/11/16 [History] Beet Root 2 tab PO DAILY 06/21/17 [History] Cholecalciferol (Vitamin D3) [Vitamin D3] 2,000 unit PO DAILY 06/21/17 [History] Cinnamon Bark [Cinnamon] 1,000 mg PO BID 06/21/17 [History] Ascorbate Calcium [Vitamin C] 500 mg PO DAILY 07/09/20 [History] Cyanocobalamin (Vitamin B-12) [Vitamin B-12] 1,000 mcg PO DAILY 07/09/20 [History] Ferrous Sulfate [Iron] 325 mg PO DAILY 07/09/20 [History] Fish Oil/[place]-3 Fatty Acids [Fish Oil 1,000 MG] 1 gm PO DAILY 07/09/20 [History] Furosemide [Lasix] 40 mg PO DAILY 07/09/20 [History] Insulin Detemir [Levemir Flextouch] 20 units SUBCUT DAILY PRN 07/09/20 [History] Tamsulosin [Flomax] 0.4 mg PO DAILY 07/09/20 [History] atorvaSTATin [Lipitor] 80 mg PO DAILY 07/09/20 [History] calcitrioL [Calcitriol] 0.25 mcg PO DAILY 07/09/20 [History] Past Medical History HEENT History: Reports: Cataract, Impaired Vision Other HEENT History: DIABETIC RETINOPATHY Cardiovascular History: Reports: Blood Clots/VTE/DVT, Heart Failure, High Cholesterol, Hypertension, [place], SOB on Exertion Respiratory History: Reports: SOB Gastrointestinal History: Reports: None Genitourinary History: Reports: Chronic Renal Insuffiency, Renal Disease Other Genitourinary History: ORCHIETOMY R/T DIABETES, ERECTILE DYSFUNCTION Musculoskeletal History: Reports: Amputation, Other (See Below) Other Musculoskeletal History: OSTEOMYLITIS, BKA OF RIGHT LEG Neurological History: Reports: Migraines Psychiatric History: Reports: None Endocrine/Metabolic History: Reports: Diabetes, Type II, Hypothyroidism, Obesity/BMI 30+ Hematologic History: Reports: Anemia Other Immunologic History: MRSA, HEPATITIS C Oncologic (Cancer) History: Reports: None Dermatologic History: Reports: Psoriasis Other Dermatologic History: PT HAS VERY DRY SKIN TO LEFT LOWER LEG\FOOT. DRY FLAKY SKIN. - Infectious Disease History Infectious Disease History: Reports: Chicken Pox - Past Surgical History Head Surgeries/Procedures: Reports: None HEENT Surgical History: Reports: None Cardiovascular Surgical History: Reports: Coronary Artery Stent Respiratory Surgical History: Reports: None GI Surgical History: Reports: Colonoscopy Male Surgical History: Reports: Other (See Below) Endocrine Surgical History: Reports: None Neurological Surgical History: Reports: None Musculoskeletal Surgical History: Reports: Amputation, ORIF Other Musculoskeletal Surgeries/Procedures:: FX SURGERY PER HX Oncologic Surgical History: Reports: None Dermatological Surgical History: Reports: None Social & Family History - Family History Family Medical History: No Pertinent Family History Cardiac: Reports: [place] Neurological: Reports: Cerebral Aneurysms - Caffeine Use Caffeine Use: Reports: Coffee - Living Situation & Occupation Living situation: Reports: Single Occupation: Unemployed ED ROS GENERAL - Review of Systems Review Of Systems: See Below Constitutional: Reports: No Symptoms HEENT: Reports: No Symptoms Respiratory: Reports: Shortness of Breath. Denies: Cough, Sputum Cardiovascular: Reports: No Symptoms, Edema. Denies: Chest Pain Endocrine: Reports: No Symptoms GI/Abdominal: Reports: No Symptoms : Reports: No Symptoms Musculoskeletal: Reports: No Symptoms Skin: Reports: No Symptoms Neurological: Reports: No Symptoms Psychiatric: Reports: No Symptoms Hematologic/Lymphatic: Reports: No Symptoms Immunologic: Reports: No Symptoms ED EXAM, GENERAL - Physical Exam Exam: See Below Exam Limited By: No Limitations General Appearance: Alert, WD/WN, No Apparent Distress Ears: Hearing Grossly Normal Nose: Normal Inspection Throat/Mouth: Normal Inspection Head: Atraumatic Neck: Normal Inspection Respiratory/Chest: Lungs Clear, Other (no rales/wheezes). No: No Accessory Muscle Use Cardiovascular: Regular Rate, Rhythm, Other (2/6 NANCY at LSB) GI/Abdominal: Soft, Non-Tender, No Organomegaly, No Distention Back Exam: Normal Inspection, Full Range of Motion Extremities: Other (3+ woody edema of LLE, prosthesis RLE, 1+ abd and prescaral and thigh edema) Neurological: Alert, Oriented, CN II-XII Intact, Normal Cognition, No Motor/Sensory Deficits Psychiatric: Normal Affect, Normal Mood Skin Exam: Warm, Dry, Intact, Normal Color, No Rash Lymphatic: No Adenopathy Course - Vital Signs Last Recorded V/S: Last Vital Signs Temp 36.8 C 07/09/20 14:15 Pulse 88 07/09/20 14:15 Resp 20 07/09/20 14:15 BP 167/86 H 07/09/20 14:15 Pulse Ox 97 07/09/20 14:15 - Orders/Labs/Meds Orders: Active Orders 24 hr Category Date Time Status Admission Status [Patient Status] [ADT] Routine ADT 07/09/20 17:57 Ordered EKG Documentation Completion [RC] ASDIRECTED Care 07/09/20 14:32 Ordered CULTURE URINE [RM] Stat Lab 07/09/20 16:27 Ordered Nitroglycerin/D5W [Nitroglycerin 25 MG/D5W 250 ML] Med 07/09/20 14:45 Ordered 25 mg in 250 ml IV TITRATE EKG 12 Lead [EK] Routine Ther 07/09/20 14:32 Ordered Medication Orders Nitroglycerin/Dextrose (Nitroglycerin 25 Mg/D5w 250 Ml) 25 mg in 250 mls @ 30 mls/hr IV TITRATE ARNULFO; Protocol Last Admin: 07/09/20 15:12 Dose: 50 mcg/min, 30 mls/hr Documented by: DEAN Labs: Laboratory Tests 07/09/20 07/09/20 07/09/20 Range/Units 14:40 14:40 14:40 WBC 7.8 (3.2-10.1) x10-3/uL RBC 3.33 L (3.90-5.90) x10(6)uL Hgb 8.3 L (12.9-17.7) g/dL Hct 26.8 L (38.3-50.1) % MCV 80.5 L (80.8-98.7) fL MCH 24.9 L (27.0-33.3) pg MCHC 30.9 (28.7-35.3) g/dL RDW 16.6 H (12.4-15.0) % Plt Count 159 (117-477) x10(3)uL MPV 11.0 (6.7-11.0) fL Neut % (Auto) 76.8 H (40.3-71.8) % Lymph % (Auto) 13.0 L (15.8-45.3) % Armstrong % (Auto) 7.1 (5.5-15.2) % Eos % (Auto) 2.8 (0.1-6.8) % Baso % (Auto) 0.3 (0.3-3.8) % Neut # (Auto) 6.0 (1.7-6.9) x10-3/uL Lymph # (Auto) 1.0 (0.5-4.5) x10-3/uL Armstrong # (Auto) 0.6 (0.0-1.2) x10-3/uL Eos # (Auto) 0.2 (0.0-0.6) x10-3/uL Baso # (Auto) 0.0 (0.0-0.3) x10-3/uL PT 12.3 H (9.0-11.1) sec INR 1.15 (1.00-1.24) Sodium 143 (135-145) mmol/L Potassium 4.6 (3.5-5.3) mmol/L Chloride 106 (100-110) mmol/L Carbon Dioxide 28 (21-32) mmol/L BUN 47 H (7-18) mg/dL Creatinine 3.6 H* (0.70-1.30) mg/dL Est Cr Clr Drug Dosing TNP Estimated GFR (MDRD) 21 L (>60) BUN/Creatinine Ratio 13.1 (9-20) Glucose 141 H (80-116) mg/dL Calcium 7.4 L (8.6-10.2) mg/dL Total Bilirubin 0.4 (0.1-1.3) mg/dL AST 54 H (5-25) IU/L ALT 49 H D (12-36) U/L Alkaline Phosphatase 167 H (56-112) IU/L Troponin I (4.0-60.3) pg/mL C-Reactive Protein (0.5-0.9) mg/dL NT-Pro-B Natriuret Pep (<=125) pg/mL Total Protein 7.5 (6.0-8.0) g/dL Albumin 2.4 L (3.2-4.6) g/dL Globulin 5.1 g/dL Albumin/Globulin Ratio 0.5 Urine Color (YELLOW) Urine Appearance (CLEAR) Urine pH (5.0-6.5) Ur Specific Mcdonough (1.010-1.025) Urine Protein (NEGATIVE) mg/dL Urine Glucose (UA) (NORMAL) mg/dL Urine Ketones (NEGATIVE) mg/dL Urine Occult Blood (NEGATIVE) Urine Nitrite (NEGATIVE) Urine Bilirubin (NEGATIVE) Urine Urobilinogen (NEGATIVE) mg/dL Ur Leukocyte Esterase (NEGATIVE) Urine RBC (0-5) Urine WBC (0-5) Ur Epithelial Cells Urine Bacteria (NS) SARS-CoV-2 RNA (YOVANY) (NEGATIVE) 07/09/20 07/09/20 07/09/20 Range/Units 14:40 15:32 16:00 WBC (3.2-10.1) x10-3/uL RBC (3.90-5.90) x10(6)uL Hgb (12.9-17.7) g/dL Hct (38.3-50.1) % MCV (80.8-98.7) fL MCH (27.0-33.3) pg MCHC (28.7-35.3) g/dL RDW (12.4-15.0) % Plt Count (117-477) x10(3)uL MPV (6.7-11.0) fL Neut % (Auto) (40.3-71.8) % Lymph % (Auto) (15.8-45.3) % Armstrong % (Auto) (5.5-15.2) % Eos % (Auto) (0.1-6.8) % Baso % (Auto) (0.3-3.8) % Neut # (Auto) (1.7-6.9) x10-3/uL Lymph # (Auto) (0.5-4.5) x10-3/uL Armstrong # (Auto) (0.0-1.2) x10-3/uL Eos # (Auto) (0.0-0.6) x10-3/uL Baso # (Auto) (0.0-0.3) x10-3/uL PT (9.0-11.1) sec INR (1.00-1.24) Sodium (135-145) mmol/L Potassium (3.5-5.3) mmol/L Chloride (100-110) mmol/L Carbon Dioxide (21-32) mmol/L BUN (7-18) mg/dL Creatinine (0.70-1.30) mg/dL Est Cr Clr Drug Dosing Estimated GFR (MDRD) (>60) BUN/Creatinine Ratio (9-20) Glucose (80-116) mg/dL Calcium (8.6-10.2) mg/dL Total Bilirubin (0.1-1.3) mg/dL AST (5-25) IU/L ALT (12-36) U/L Alkaline Phosphatase (56-112) IU/L Troponin I 23.2 (4.0-60.3) pg/mL C-Reactive Protein 2.4 H (0.5-0.9) mg/dL NT-Pro-B Natriuret Pep 9661 H* (<=125) pg/mL Total Protein (6.0-8.0) g/dL Albumin (3.2-4.6) g/dL Globulin g/dL Albumin/Globulin Ratio Urine Color Yellow (YELLOW) Urine Appearance Clear (CLEAR) Urine pH 5.0 (5.0-6.5) Ur Specific Mcdonough 1.020 (1.010-1.025) Urine Protein 500 H (NEGATIVE) mg/dL Urine Glucose (UA) 100 H (NORMAL) mg/dL Urine Ketones Negative (NEGATIVE) mg/dL Urine Occult Blood Negative (NEGATIVE) Urine Nitrite Negative (NEGATIVE) Urine Bilirubin Negative (NEGATIVE) Urine Urobilinogen Normal (NEGATIVE) mg/dL Ur Leukocyte Esterase Negative (NEGATIVE) Urine RBC 0-5 (0-5) Urine WBC 30-40 H (0-5) Ur Epithelial Cells Occasional Urine Bacteria Few H (NS) SARS-CoV-2 RNA (YOVANY) Negative (NEGATIVE) Meds: Medications Generic Name Dose Route Start Last Admin Trade Name Valdemar PRN Reason Stop Dose Admin Nitroglycerin/Dextrose 25 mg in 250 mls @ 30 mls/hr 07/09/20 14:45 07/09/20 15:12 Nitroglycerin 25 Mg/D5w 250 Ml IV 50 mcg/min TITRATE ARNULFO 30 mls/hr Administration Protocol 50 MCG/MIN Discontinued Medications Generic Name Dose Route Start Last Admin Trade Name Valdemar PRN Reason Stop Dose Admin Furosemide 40 mg 07/09/20 14:33 07/09/20 15:12 Furosemide 40 Mg/4 Ml Vial IVPUSH 07/09/20 14:34 40 mg NOW ONE Administration - Re-Assessments/Exams Free Text/Narrative Re-Assessment/Exam: 07/09/20 17:58 pt ate supper, agrees to admission for anasarca, pul edema on CxR per Dr Alves put out 400 ml urine on nitro drip 50 mcg/min with BP 130/105, give furosemide 40 mg IV x 1 will admit to bed 103, d/w charge nurse Bud on hosp side and charge nurse Sandy on ED side pt in good spirits does have UTi however, no dyspnea Departure - Departure Time of Disposition: 18:00 Disposition: Admitted As Inpatient 64 Condition: Good Clinical Impression: Acute exacerbation of CHF (congestive heart failure), Creatinine elevation, Anasarca, Pulmonary edema cardiac cause, Acute on chronic renal insufficiency, Urinary tract infection, Elevated C-reactive protein (CRP), Elevated liver function tests, Microcytic hypochromic anemia, Weight gain, Hypoalbuminemia Sepsis Event Note (ED) - Focused Exam Vital Signs: Vital Signs Temp Pulse Resp BP Pulse Ox 07/09/20 14:15 36.8 C 88 20 167/86 H 97 - My Orders Last 24 Hours: My Active Orders 07/09/20 14:32 EKG Documentation Completion [RC] ASDIRECTED EKG 12 Lead [EK] Routine 07/09/20 14:45 Nitroglycerin/D5W [Nitroglycerin 25 MG/D5W 250 ML] 25 mg in 250 ml IV TITRATE 07/09/20 16:27 CULTURE URINE [RM] Stat 07/09/20 17:57 Admission Status [Patient Status] [ADT] Routine - Assessment/Plan Last 24 Hours: My Active Orders 07/09/20 14:32 EKG Documentation Completion [RC] ASDIRECTED EKG 12 Lead [EK] Routine 07/09/20 14:45 Nitroglycerin/D5W [Nitroglycerin 25 MG/D5W 250 ML] 25 mg in 250 ml IV TITRATE 07/09/20 16:27 CULTURE URINE [RM] Stat 07/09/20 17:57 Admission Status [Patient Status] [ADT] Routine
--- NOTE | 2020-07-09 17:27 | CR ---
INDICATION: Short of breath. CHEST ONE VIEW: Portable AP upright view of the chest revealed the heart to be enlarged with congested appearing prominent upper lung field pulmonary vasculature suggesting CHF. Acute pulmonary edema may be present with fluffy patchy infiltration scattered about the lungs, especially on the right. Other cause of the infiltration such as pneumonia could be present, however. Diaphragms are flattened with suggestion of hyperaeration raising question of COPD. Evidence of exogenous obesity is noted. Overlying EKG leads are noted. IMPRESSION: ASHD with cardiomegaly, probable CHF and possible acute pulmonary edema versus areas of patchy pneumonia in a patient with COPD. MTDD
[2020-07-09] MEDS ORDERED: Ondansetron 4 MG/2 ML SDV IV PRN (19:18)
[2020-07-09] MEDS ORDERED: Magnesium Hydroxide 400 MG/5 ML Susp 30 ML Cup PO PRN (19:18)
[2020-07-09] MEDS ORDERED: Zolpidem 5 MG Tab PO PRN (19:18)
[2020-07-09] MEDS ORDERED: Acetaminophen 325 MG Tab PO PRN (19:18)
[2020-07-09] MEDS ORDERED: Insulin Glargine,Human Rec. Analog 100 Units/ML 3 ML Pen SUBCUT PRN (19:23)
[2020-07-09] MEDS ORDERED: Nitroglycerin/D5W 25 MG/250 ML BOTTLE IV SCH (19:30)
[2020-07-09] MEDS ORDERED: Furosemide 40 MG/4 ML VIAL IVPUSH SCH (21:00)
[2020-07-09] MEDS ORDERED: CINNAMON BARK 500 MG PO SCH (21:00)
[2020-07-09] MEDS: Enoxaparin 30 MG/0.3 ML Syringe SUBCUT SCH (22:16)
[2020-07-10] MEDS: Levothyroxine 100 MCG Tab PO SCH (07:04)
[2020-07-10] MEDS ORDERED: Pantoprazole 40 MG Tab.CR PO SCH (07:30)
[2020-07-10] MEDS: Nitroglycerin/D5W 25 MG/250 ML BOTTLE IV SCH (08:26)
--- NOTE | 2020-07-10 08:50 | PCM.HP.2 ---
H&P History of Present Illness - General Date of Service: 07/10/20 Admit Problem/Dx: Admission Diagnosis/Problem Admission Diagnosis/Problem Heart failure Source of Information: Patient History Limitations: Reports: No Limitations - History of Present Illness Initial Comments - Free Text/Narative: Mr Esposito is admitted in CHF. Presented to clinic with 10 lb weight gain over a few days,SOB at rest ,and generalized edema.may have started in June after he got 2 units of PRBC transfused for anemia.Denies CP. Has a h/o CHF,.CAD,HTN,DM, PAD - Related Data Allergies/Adverse Reactions: Allergies Allergy/AdvReac Type Severity Reaction Status Date / Time No Known Allergies Allergy Verified 06/21/17 13:42 Home Medications: Home Meds Multivitamins/Min/Ca/FA/Iron [Thera-M] 1 tab PO DAILY 12/22/15 [History] Omeprazole 20 mg PO BID@12/22/15 [History] amLODIPine/Benazepril [Lotrel 5-10 MG] 1 cap PO DAILY 12/22/15 [History] Aspirin [Ecotrin EC] 81 mg PO DAILY 10/11/16 [History] Clopidogrel Bisulfate [Clopidogrel] 75 mg PO DAILY 10/11/16 [History] Levothyroxine [Synthroid] 100 mcg PO DAILY 10/11/16 [History] Beet Root 2 tab PO DAILY 06/21/17 [History] Cholecalciferol (Vitamin D3) [Vitamin D3] 2,000 unit PO DAILY 06/21/17 [History] Cinnamon Bark [Cinnamon] 1,000 mg PO BID 06/21/17 [History] Ascorbate Calcium [Vitamin C] 500 mg PO DAILY 07/09/20 [History] Cyanocobalamin (Vitamin B-12) [Vitamin B-12] 1,000 mcg PO DAILY 07/09/20 [History] Ferrous Sulfate [Iron] 325 mg PO DAILY 07/09/20 [History] Fish Oil/[place]-3 Fatty Acids [Fish Oil 1,000 MG] 1 gm PO DAILY 07/09/20 [History] Furosemide [Lasix] 40 mg PO DAILY 07/09/20 [History] Insulin Detemir [Levemir Flextouch] 20 units SUBCUT DAILY PRN 07/09/20 [History] Tamsulosin [Flomax] 0.4 mg PO DAILY 07/09/20 [History] atorvaSTATin [Lipitor] 80 mg PO DAILY 07/09/20 [History] calcitrioL [Calcitriol] 0.25 mcg PO DAILY 07/09/20 [History] Past Medical History HEENT History: Reports: Cataract, Impaired Vision Other HEENT History: DIABETIC RETINOPATHY Cardiovascular History: Reports: Blood Clots/VTE/DVT, Heart Failure, High Cholesterol, Hypertension, [place], SOB on Exertion Respiratory History: Reports: SOB Gastrointestinal History: Reports: None Genitourinary History: Reports: Chronic Renal Insuffiency, Renal Disease Other Genitourinary History: ORCHIETOMY R/T DIABETES, ERECTILE DYSFUNCTION Musculoskeletal History: Reports: Amputation, Other (See Below) Other Musculoskeletal History: OSTEOMYLITIS, BKA OF RIGHT LEG Neurological History: Reports: Migraines Psychiatric History: Reports: None Endocrine/Metabolic History: Reports: Diabetes, Type II, Hypothyroidism, Obesity/BMI 30+ Hematologic History: Reports: Anemia, Blood Transfusion(s) Other Immunologic History: MRSA, HEPATITIS C Oncologic (Cancer) History: Reports: None Dermatologic History: Reports: Psoriasis Other Dermatologic History: PT HAS VERY DRY SKIN TO LEFT LOWER LEG\FOOT. DRY FLAKY SKIN. - Infectious Disease History Infectious Disease History: Reports: Chicken Pox - Past Surgical History Head Surgeries/Procedures: Reports: None HEENT Surgical History: Reports: None Cardiovascular Surgical History: Reports: Coronary Artery Stent Respiratory Surgical History: Reports: None GI Surgical History: Reports: Colonoscopy Male Surgical History: Reports: Other (See Below) Endocrine Surgical History: Reports: None Neurological Surgical History: Reports: None Musculoskeletal Surgical History: Reports: Amputation, ORIF Other Musculoskeletal Surgeries/Procedures:: FX SURGERY PER HX Oncologic Surgical History: Reports: None Dermatological Surgical History: Reports: None Social & Family History - Family History Family Medical History: No Pertinent Family History Cardiac: Reports: [place] Neurological: Reports: Cerebral Aneurysms - Tobacco Use Tobacco Use Status *Q: Former Tobacco User Used Tobacco, but Quit: Yes Month/Year Tobacco Last Used: 1981 - Caffeine Use Caffeine Use: Reports: Tea - Recreational Drug Use Recreational Drug Use: No - Living Situation & Occupation Living situation: Reports: Single Occupation: Unemployed H&P Review of Systems - Review of Systems: Review Of Systems: Comprehensive ROS is negative, except as noted in HPI. Exam - Exam Exam: See Below - Vital Signs Vital Signs: Last Vital Signs Temp 97.9 F 05/06/21 20:00 Pulse 75 07/10/20 06:00 Resp 24 H 07/10/20 06:00 BP 135/75 07/10/20 06:00 Pulse Ox 91 L 07/10/20 06:00 Weight: 134.433 kg - Exam Quality Assessment: Supplemental Oxygen General: Alert, Mild Distress HEENT: PERRLA Neck: Supple Lungs: Crackles, Rales Cardiovascular: Regular Rate GI/Abdominal Exam: Soft (Male) Exam: No Hernia, Scrotal Swelling Rectal (Males) Exam: Deferred Back Exam: Normal Inspection Extremities: Pedal Edema Skin: Warm Neurological: Cranial Nerves Intact Neuro Extensive - Mental Status: Alert, Oriented x3 Neuro Extensive - Motor, Sensory, Reflexes: CN II-XII Intact Psychiatric: Alert, Normal Affect - Patient Data Lab Results Last 24 hrs: Laboratory Results - last 24 hr 07/09/20 07/09/20 07/09/20 Range/Units 14:40 14:40 14:40 WBC 7.8 (3.2-10.1) x10-3/uL RBC 3.33 L (3.90-5.90) x10(6)uL Hgb 8.3 L (12.9-17.7) g/dL Hct 26.8 L (38.3-50.1) % MCV 80.5 L (80.8-98.7) fL MCH 24.9 L (27.0-33.3) pg MCHC 30.9 (28.7-35.3) g/dL RDW 16.6 H (12.4-15.0) % Plt Count 159 (117-477) x10(3)uL MPV 11.0 (6.7-11.0) fL Neut % (Auto) 76.8 H (40.3-71.8) % Lymph % (Auto) 13.0 L (15.8-45.3) % [place] % (Auto) 7.1 (5.5-15.2) % Eos % (Auto) 2.8 (0.1-6.8) % Baso % (Auto) 0.3 (0.3-3.8) % Neut # (Auto) 6.0 (1.7-6.9) x10-3/uL Lymph # (Auto) 1.0 (0.5-4.5) x10-3/uL [place] # (Auto) 0.6 (0.0-1.2) x10-3/uL Eos # (Auto) 0.2 (0.0-0.6) x10-3/uL Baso # (Auto) 0.0 (0.0-0.3) x10-3/uL PT 12.3 H (9.0-11.1) sec INR 1.15 (1.00-1.24) Sodium 143 (135-145) mmol/L Potassium 4.6 (3.5-5.3) mmol/L Chloride 106 (100-110) mmol/L Carbon Dioxide 28 (21-32) mmol/L BUN 47 H (7-18) mg/dL Creatinine 3.6 H* (0.70-1.30) mg/dL Est Cr Clr Drug Dosing TNP Estimated GFR (MDRD) 21 L (>60) BUN/Creatinine Ratio 13.1 (9-20) Glucose 141 H (80-116) mg/dL POC Glucose (80-116) mg/dL Calcium 7.4 L (8.6-10.2) mg/dL Total Bilirubin 0.4 (0.1-1.3) mg/dL AST 54 H (5-25) IU/L ALT 49 H D (12-36) U/L Alkaline Phosphatase 167 H (56-112) IU/L Troponin I (4.0-60.3) pg/mL C-Reactive Protein (0.5-0.9) mg/dL NT-Pro-B Natriuret Pep (<=125) pg/mL Total Protein 7.5 (6.0-8.0) g/dL Albumin 2.4 L (3.2-4.6) g/dL Globulin 5.1 g/dL Albumin/Globulin Ratio 0.5 Urine Color (YELLOW) Urine Appearance (CLEAR) Urine pH (5.0-6.5) Ur Specific [place] (1.010-1.025) Urine Protein (NEGATIVE) mg/dL Urine Glucose (UA) (NORMAL) mg/dL Urine Ketones (NEGATIVE) mg/dL Urine Occult Blood (NEGATIVE) Urine Nitrite (NEGATIVE) Urine Bilirubin (NEGATIVE) Urine Urobilinogen (NEGATIVE) mg/dL Ur Leukocyte Esterase (NEGATIVE) Urine RBC (0-5) Urine WBC (0-5) Ur Epithelial Cells Urine Bacteria (NS) SARS-CoV-2 RNA (YOVANY) (NEGATIVE) 07/09/20 07/09/20 07/09/20 Range/Units 14:40 15:32 16:00 WBC (3.2-10.1) x10-3/uL RBC (3.90-5.90) x10(6)uL Hgb (12.9-17.7) g/dL Hct (38.3-50.1) % MCV (80.8-98.7) fL MCH (27.0-33.3) pg MCHC (28.7-35.3) g/dL RDW (12.4-15.0) % Plt Count (117-477) x10(3)uL MPV (6.7-11.0) fL Neut % (Auto) (40.3-71.8) % Lymph % (Auto) (15.8-45.3) % [place] % (Auto) (5.5-15.2) % Eos % (Auto) (0.1-6.8) % Baso % (Auto) (0.3-3.8) % Neut # (Auto) (1.7-6.9) x10-3/uL Lymph # (Auto) (0.5-4.5) x10-3/uL [place] # (Auto) (0.0-1.2) x10-3/uL Eos # (Auto) (0.0-0.6) x10-3/uL Baso # (Auto) (0.0-0.3) x10-3/uL PT (9.0-11.1) sec INR (1.00-1.24) Sodium (135-145) mmol/L Potassium (3.5-5.3) mmol/L Chloride (100-110) mmol/L Carbon Dioxide (21-32) mmol/L BUN (7-18) mg/dL Creatinine (0.70-1.30) mg/dL Est Cr Clr Drug Dosing Estimated GFR (MDRD) (>60) BUN/Creatinine Ratio (9-20) Glucose (80-116) mg/dL POC Glucose (80-116) mg/dL Calcium (8.6-10.2) mg/dL Total Bilirubin (0.1-1.3) mg/dL AST (5-25) IU/L ALT (12-36) U/L Alkaline Phosphatase (56-112) IU/L Troponin I 23.2 (4.0-60.3) pg/mL C-Reactive Protein 2.4 H (0.5-0.9) mg/dL NT-Pro-B Natriuret Pep 9661 H* (<=125) pg/mL Total Protein (6.0-8.0) g/dL Albumin (3.2-4.6) g/dL Globulin g/dL Albumin/Globulin Ratio Urine Color Yellow (YELLOW) Urine Appearance Clear (CLEAR) Urine pH 5.0 (5.0-6.5) Ur Specific [place] 1.020 (1.010-1.025) Urine Protein 500 H (NEGATIVE) mg/dL Urine Glucose (UA) 100 H (NORMAL) mg/dL Urine Ketones Negative (NEGATIVE) mg/dL Urine Occult Blood Negative (NEGATIVE) Urine Nitrite Negative (NEGATIVE) Urine Bilirubin Negative (NEGATIVE) Urine Urobilinogen Normal (NEGATIVE) mg/dL Ur Leukocyte Esterase Negative (NEGATIVE) Urine RBC 0-5 (0-5) Urine WBC 30-40 H (0-5) Ur Epithelial Cells Occasional Urine Bacteria Few H (NS) SARS-CoV-2 RNA (YOVANY) Negative (NEGATIVE) 07/09/20 07/10/20 07/10/20 Range/Units 22:24 06:27 06:36 WBC 7.7 (3.2-10.1) x10-3/uL RBC 2.89 L (3.90-5.90) x10(6)uL Hgb 7.1 L (12.9-17.7) g/dL Hct 23.2 L (38.3-50.1) % MCV 80.3 L (80.8-98.7) fL MCH 24.5 L (27.0-33.3) pg MCHC 30.5 (28.7-35.3) g/dL RDW 16.5 H (12.4-15.0) % Plt Count 138 (117-477) x10(3)uL MPV 10.8 (6.7-11.0) fL Neut % (Auto) 74.1 H (40.3-71.8) % Lymph % (Auto) 13.6 L (15.8-45.3) % [place] % (Auto) 9.2 (5.5-15.2) % Eos % (Auto) 2.8 (0.1-6.8) % Baso % (Auto) 0.3 (0.3-3.8) % Neut # (Auto) 5.7 (1.7-6.9) x10-3/uL Lymph # (Auto) 1.1 (0.5-4.5) x10-3/uL [place] # (Auto) 0.7 (0.0-1.2) x10-3/uL Eos # (Auto) 0.2 (0.0-0.6) x10-3/uL Baso # (Auto) 0.0 (0.0-0.3) x10-3/uL PT (9.0-11.1) sec INR (1.00-1.24) Sodium (135-145) mmol/L Potassium (3.5-5.3) mmol/L Chloride (100-110) mmol/L Carbon Dioxide (21-32) mmol/L BUN (7-18) mg/dL Creatinine (0.70-1.30) mg/dL Est Cr Clr Drug Dosing Estimated GFR (MDRD) (>60) BUN/Creatinine Ratio (9-20) Glucose (80-116) mg/dL POC Glucose 159 H 129 H (80-116) mg/dL Calcium (8.6-10.2) mg/dL Total Bilirubin (0.1-1.3) mg/dL AST (5-25) IU/L ALT (12-36) U/L Alkaline Phosphatase (56-112) IU/L Troponin I (4.0-60.3) pg/mL C-Reactive Protein (0.5-0.9) mg/dL NT-Pro-B Natriuret Pep (<=125) pg/mL Total Protein (6.0-8.0) g/dL Albumin (3.2-4.6) g/dL Globulin g/dL Albumin/Globulin Ratio Urine Color (YELLOW) Urine Appearance (CLEAR) Urine pH (5.0-6.5) Ur Specific [place] (1.010-1.025) Urine Protein (NEGATIVE) mg/dL Urine Glucose (UA) (NORMAL) mg/dL Urine Ketones (NEGATIVE) mg/dL Urine Occult Blood (NEGATIVE) Urine Nitrite (NEGATIVE) Urine Bilirubin (NEGATIVE) Urine Urobilinogen (NEGATIVE) mg/dL Ur Leukocyte Esterase (NEGATIVE) Urine RBC (0-5) Urine WBC (0-5) Ur Epithelial Cells Urine Bacteria (NS) SARS-CoV-2 RNA (YOVANY) (NEGATIVE) 07/10/20 Range/Units 06:36 WBC (3.2-10.1) x10-3/uL RBC (3.90-5.90) x10(6)uL Hgb (12.9-17.7) g/dL Hct (38.3-50.1) % MCV (80.8-98.7) fL MCH (27.0-33.3) pg MCHC (28.7-35.3) g/dL RDW (12.4-15.0) % Plt Count (117-477) x10(3)uL MPV (6.7-11.0) fL Neut % (Auto) (40.3-71.8) % Lymph % (Auto) (15.8-45.3) % [place] % (Auto) (5.5-15.2) % Eos % (Auto) (0.1-6.8) % Baso % (Auto) (0.3-3.8) % Neut # (Auto) (1.7-6.9) x10-3/uL Lymph # (Auto) (0.5-4.5) x10-3/uL [place] # (Auto) (0.0-1.2) x10-3/uL Eos # (Auto) (0.0-0.6) x10-3/uL Baso # (Auto) (0.0-0.3) x10-3/uL PT (9.0-11.1) sec INR (1.00-1.24) Sodium 142 (135-145) mmol/L Potassium 4.8 (3.5-5.3) mmol/L Chloride 107 (100-110) mmol/L Carbon Dioxide 28 (21-32) mmol/L BUN 46 H (7-18) mg/dL Creatinine 3.5 H* (0.70-1.30) mg/dL Est Cr Clr Drug Dosing 17.82 Estimated GFR (MDRD) 21 L (>60) BUN/Creatinine Ratio 13.1 (9-20) Glucose 130 H (80-116) mg/dL POC Glucose (80-116) mg/dL Calcium 7.4 L (8.6-10.2) mg/dL Total Bilirubin (0.1-1.3) mg/dL AST (5-25) IU/L ALT (12-36) U/L Alkaline Phosphatase (56-112) IU/L Troponin I (4.0-60.3) pg/mL C-Reactive Protein (0.5-0.9) mg/dL NT-Pro-B Natriuret Pep (<=125) pg/mL Total Protein (6.0-8.0) g/dL Albumin (3.2-4.6) g/dL Globulin g/dL Albumin/Globulin Ratio Urine Color (YELLOW) Urine Appearance (CLEAR) Urine pH (5.0-6.5) Ur Specific [place] (1.010-1.025) Urine Protein (NEGATIVE) mg/dL Urine Glucose (UA) (NORMAL) mg/dL Urine Ketones (NEGATIVE) mg/dL Urine Occult Blood (NEGATIVE) Urine Nitrite (NEGATIVE) Urine Bilirubin (NEGATIVE) Urine Urobilinogen (NEGATIVE) mg/dL Ur Leukocyte Esterase (NEGATIVE) Urine RBC (0-5) Urine WBC (0-5) Ur Epithelial Cells Urine Bacteria (NS) SARS-CoV-2 RNA (YOVANY) (NEGATIVE) Result Diagrams: 07/10/20 06:36 07/10/20 06:36 Sepsis Event Note - Evaluation Sepsis Screening Result: No Definite Risk - Focused Exam Vital Signs: Vital Signs Pulse Resp BP Pulse Ox Pulse Ox 07/10/20 06:00 75 24 H 135/75 91 L 07/10/20 04:00 77 24 H 139/80 90 L 07/10/20 03:00 77 24 H 157/90 H 92 L 07/10/20 02:00 76 24 H 139/70 90 L 07/10/20 01:00 76 22 H 129/64 90 L 92 L 07/10/20 00:00 79 21 H 147/65 H 89 L 07/09/20 23:00 80 22 H 140/81 89 L 07/09/20 22:00 78 27 H 150/79 H 93 L 07/09/20 21:00 78 24 H 155/76 H 92 L - Problem List (1) Acute pulmonary edema SNOMED Code(s): 47239804 ICD Code: J81.0 - ACUTE PULMONARY EDEMA Status: Acute Current Visit: Yes (2) CKD (chronic kidney disease) SNOMED Code(s): 550155563 ICD Code: N18.9 - CHRONIC KIDNEY DISEASE, UNSPECIFIED Status: Chronic Current Visit: Yes Qualifiers: Chronic kidney disease stage: stage 4 (severe) Qualified Code(s): N18.4 - Chronic kidney disease, stage 4 (severe) (3) Diabetes type 2, controlled SNOMED Code(s): 24065141, 447937989 ICD Code: E11.9 - TYPE 2 DIABETES MELLITUS WITHOUT COMPLICATIONS Status: Chronic Current Visit: Yes Qualifiers: Diabetes mellitus oil heaterman insulin use: with oil heaterman use Diabetes mellitus complication status: with circulatory complication (4) SOBOE (shortness of breath on exertion) SNOMED Code(s): 50156493 ICD Code: R06.02 - SHORTNESS OF BREATH Status: Acute Current Visit: No Problem Details: Obtain Echo,BNP.Start Lasix IV. (5) Anemia SNOMED Code(s): 219023160 ICD Code: D64.9 - ANEMIA, UNSPECIFIED Status: Chronic Current Visit: No Qualifiers: Anemia type: due to chronic kidney disease Chronic kidney disease stage: stage 3 (moderate) (6) Hx of BKA Status: Chronic Current Visit: No Qualifiers: Laterality: right Qualified Code(s): Z89.511 - Acquired absence of right leg below knee (7) Obesity SNOMED Code(s): 182593599, 610353512 ICD Code: E66.9 - OBESITY, UNSPECIFIED Status: Chronic Current Visit: No Qualifiers: Obesity type: due to excess calories Problem List Initiated/Reviewed/Updated: Yes Orders Last 24hrs: Active Orders 24 hr Category Date Time Status Admission Status [Patient Status] [ADT] Routine ADT 07/09/20 17:57 Active Blood Glucose Check, Bedside [RC] QIDACANDBED Care 07/09/20 19:18 Active Cardiac Monitoring [] QSHIFT Care 07/09/20 19:18 Active Daily Weight [Height and Weight] [RC] 06 Care 07/09/20 19:28 Active Intake and Output [RC] 06,14,22 Care 07/09/20 19:18 Active Oxygen Therapy [RC] PRN Care 07/09/20 19:18 Active Up ad Opal [RC] ASDIRECTED Care 07/09/20 19:18 Active VTE/DVT Education [RC] Per Unit Routine Care 07/09/20 19:18 Active Vital Signs [RC] 08,12,16,20,00,04 Care 07/09/20 19:18 Active BASIC METABOLIC PANEL,BMP [CHEM] DAILY Lab 07/11/20 05:10 Ordered BASIC METABOLIC PANEL,BMP [CHEM] DAILY Lab 07/12/20 05:10 Ordered CBC WITH AUTO DIFF [HEME] DAILY Lab 07/11/20 05:10 Ordered CBC WITH AUTO DIFF [HEME] DAILY Lab 07/12/20 05:10 Ordered CBC WITH AUTO DIFF [HEME] DAILY Lab 07/13/20 05:10 Ordered CBC WITH AUTO DIFF [HEME] DAILY Lab 07/14/20 05:10 Ordered CULTURE URINE [RM] Stat Lab 07/09/20 15:32 Received PRO B-TYPE NATRIUR PEPT,BNPPRO [CHEM] DAILY Lab 07/11/20 05:11 Ordered PRO B-TYPE NATRIUR PEPT,BNPPRO [CHEM] DAILY Lab 07/12/20 05:11 Ordered PRO B-TYPE NATRIUR PEPT,BNPPRO [CHEM] DAILY Lab 07/13/20 05:11 Ordered PRO B-TYPE NATRIUR PEPT,BNPPRO [CHEM] DAILY Lab 07/14/20 05:11 Ordered Acetaminophen [TylenoL] Med 07/09/20 19:18 Active 650 mg PO Q4H PRN Ascorbic Acid [Vitamin C] Med 07/10/20 09:00 Active 500 mg PO DAILY Aspirin [Halfprin] Med 07/10/20 09:00 Active 81 mg PO DAILY Benazepril [Lotensin] Med 07/10/20 09:00 Active 10 mg PO DAILY Cholecalciferol (Vitamin D3) [Vitamin D3] Med 07/10/20 09:00 Active 50 mcg PO DAILY Cinnamon Bark [Cinnamon] Med 07/09/20 21:00 Pending 1,000 mg PO BID Clopidogrel [Plavix] Med 07/10/20 09:00 Active 75 mg PO DAILY Cyanocobalamin (Vitamin B12) [Vitamin B12] Med 07/10/20 09:00 Active 1,000 mcg PO DAILY Enoxaparin [Lovenox] Med 07/09/20 20:00 Active 30 mg SUBCUT Q24H Ferrous Sulfate Med 07/10/20 09:00 Active 325 mg PO DAILY Fish Oil/[place]-3 Fatty Acids [Fish Oil] Med 07/10/20 09:00 Active 1 gm PO DAILY Furosemide [Lasix] Med 07/10/20 08:30 Active 40 mg IVPUSH BIDDIURETIC Insulin Glarg,Human.Rec.Analog [LantUS Solostar] Med 07/09/20 19:23 Active 20 units SUBCUT DAILY PRN Levothyroxine [Synthroid] Med 07/10/20 07:30 Active 100 mcg PO ACBREAKFAST Magnesium Hydroxide [Milk of Magnesia] Med 07/09/20 19:18 Active 30 ml PO Q12H PRN Multivitamins [Tab-A-Mendy] Med 07/10/20 09:00 Active 1 tab PO DAILY Nitroglycerin/D5W [Nitroglycerin 25 MG/D5W 250 ML] Med 07/09/20 14:45 Active 25 mg in 250 ml IV TITRATE Nitroglycerin/D5W [Nitroglycerin 25 MG/D5W 250 ML] Med 07/09/20 19:30 Active 25 mg in 250 ml IV TITRATE Ondansetron [Zofran] Med 07/09/20 19:18 Active 4 mg IV Q4H PRN Pantoprazole [ProTONIX] Med 07/10/20 07:30 Active 40 mg PO ACBREAKFAST Tamsulosin [Flomax] Med 07/10/20 09:00 Active 0.4 mg PO DAILY Zolpidem [Ambien] Med 07/09/20 19:18 Active 5 mg PO BEDTIME PRN amLODIPine [Norvasc] Med 07/10/20 09:00 Active 5 mg PO DAILY atorvaSTATin [Lipitor] Med 07/10/20 09:00 Active 80 mg PO DAILY calcitrioL [Rocaltrol] Med 07/10/20 09:00 Active 0.25 mcg PO DAILY Resuscitation Status Routine Resus Stat 07/09/20 19:18 Ordered EKG 12 Lead [EK] Routine Ther 07/09/20 14:32 Ordered Medication Orders Acetaminophen (Acetaminophen 325 Mg Tab) 650 mg PO Q4H PRN PRN Reason: Pain (Mild 1-3)/fever Amlodipine Besylate (Amlodipine 5 Mg Tab) 5 mg PO DAILY ARNULFO Ascorbic Acid (Ascorbic Acid 500 Mg Tab) 500 mg PO DAILY ARNULFO Aspirin (Aspirin 81 Mg Tab.Ec) 81 mg PO DAILY ARNULFO Atorvastatin Calcium (Atorvastatin 40 Mg Tab) 80 mg PO DAILY ARNULFO Benazepril HCl (Benazepril 10 Mg Tab) 10 mg PO DAILY ARNULFO Calcitriol (Calcitriol 0.25 Mcg Cap) 0.25 mcg PO DAILY ARNULFO Cholecalciferol (Cholecalciferol (Vitamin D3) 25 Mcg Tab) 50 mcg PO DAILY ARNULFO Clopidogrel Bisulfate (Clopidogrel 75 Mg Tab) 75 mg PO DAILY [facility] Cyanocobalamin (Cyanocobalamin (Vitamin B12) 1,000 Mcg Tab) 1,000 mcg PO DAILY [facility] Enoxaparin Sodium (Enoxaparin 30 Mg/0.3 Ml Syringe) 30 mg SUBCUT Q24H ARNULFO Last Admin: 07/09/20 22:16 Dose: 30 mg Documented by: LELO Ferrous Sulfate (Ferrous Sulfate 325 Mg Tab) 325 mg PO DAILY ARNULFO Fish Oil (Fish Oil/[place]-3 Fatty Acids 1 Gm Cap) 1 gm PO DAILY ARNULFO Furosemide (Furosemide 40 Mg/4 Ml Vial) 40 mg IVPUSH BIDDIURETIC ARNULFO Nitroglycerin/Dextrose (Nitroglycerin 25 Mg/D5w 250 Ml) 25 mg in 250 mls @ 30 mls/hr IV TITRATE ARNULFO; Protocol Last Admin: 07/10/20 08:26 Dose: 50 mcg/min, 30 mls/hr Documented by: Titration: 07/10/20 07:38 Dose: 50 mcg/min, 30 mls/hr Documented by: Admin: 07/09/20 23:18 Dose: 50 mcg/min, 30 mls/hr Documented by: Titration: 07/09/20 23:18 Dose: 50 mcg/min, 30 mls/hr Documented by: Admin: 07/09/20 15:12 Dose: 50 mcg/min, 30 mls/hr Documented by: DEAN Nitroglycerin/Dextrose (Nitroglycerin 25 Mg/D5w 250 Ml) 25 mg in 250 mls @ 30 mls/hr IV TITRATE ARNULFO; Protocol Insulin Glargine (Insulin Glargine,Human Rec. Analog 100 Units/Ml 3 Ml Pen) 20 units SUBCUT DAILY PRN PRN Reason: Hyperglycemia Levothyroxine Sodium (Levothyroxine 100 Mcg Tab) 100 mcg PO ACBREAKFAST [facility] Last Admin: 07/10/20 07:04 Dose: 100 mcg Documented by: LELO Magnesium Hydroxide (Magnesium Hydroxide 400 Mg/5 Ml Susp 30 Ml Cup) 30 ml PO Q12H PRN PRN Reason: Constipation Multivitamins/Minerals/Vitamin C (Multivitamin Tab) 1 tab PO DAILY [facility] Non-Formulary Medication (Cinnamon Bark [Cinnamon]) 1,000 mg PO BID ARNULFO Ondansetron HCl (Ondansetron 4 Mg/2 Ml Sdv) 4 mg IV Q4H PRN PRN Reason: Nausea/Vomiting Pantoprazole Sodium (Pantoprazole 40 Mg Tab.Cr) 40 mg PO ACBREAKFAST [facility] Last Admin: 07/10/20 07:04 Dose: 40 mg Documented by: LELO Tamsulosin HCl (Tamsulosin 0.4 Mg Cap.Er) 0.4 mg PO DAILY [facility] Zolpidem Tartrate (Zolpidem 5 Mg Tab) 5 mg PO BEDTIME PRN PRN Reason: Sleep Assessment/Plan Comment:: Admit,continue diuresis. DC Nitro drip,in favor of Zaroxolyn,PO.Strict I/O,with daily. Repeat labs in AM.
[2020-07-10] MEDS ORDERED: atorvaSTATin 40 MG Tab PO SCH (09:00)
[2020-07-10] MEDS ORDERED: Benazepril 10 MG Tab PO SCH (09:00)
[2020-07-10] MEDS ORDERED: BENAZEPRIL PO SCH (09:00)
[2020-07-10] MEDS ORDERED: AMLODIPINE PO SCH (09:00)
[2020-07-10] MEDS ORDERED: amLODIPine 5 MG Tab PO SCH (09:00)
[2020-07-10] MEDS: Ferrous Sulfate 325 MG Tab PO SCH (10:17)
[2020-07-10] MEDS: Ascorbic Acid 500 MG Tab PO SCH (10:17)
[2020-07-10] MEDS: Calcitriol 0.25 MCG Cap PO SCH (10:17)
[2020-07-10] MEDS: Tamsulosin 0.4 MG Cap.ER PO SCH (10:17)
[2020-07-10] MEDS: Furosemide 40 MG/4 ML VIAL IVPUSH SCH ×2 (10:17→14:29)
[2020-07-10] MEDS: Clopidogrel 75 MG Tab PO SCH (10:17)
[2020-07-10] MEDS: Multivitamin Tab PO SCH (10:17)
[2020-07-10] MEDS: Cyanocobalamin (Vitamin B12) 1,000 MCG Tab PO SCH (10:17)
[2020-07-10] MEDS: Metolazone 2.5 MG Tab PO SCH (10:17)
[2020-07-10] MEDS: Cholecalciferol (Vitamin D3) 25 MCG Tab PO SCH (10:18)
[2020-07-10] MEDS: Fish Oil/Omega-3 Fatty Acids 1 Gm Cap PO SCH (10:18)
[2020-07-10] MEDS: Aspirin 81 MG Tab.EC PO SCH (10:19)
[2020-07-10] MEDS ORDERED: Insulin Glargine,Human Rec. Analog 100 Units/ML 3 ML Pen SUBCUT ONE (11:09)
[2020-07-10] MEDS: Insulin Glargine,Human Rec. Analog 100 Units/ML 3 ML Pen SUBCUT SCH (11:25)
[2020-07-10] MEDS: OMEPRAZOLE 20 MG PO SCH (20:45)
[2020-07-10] MEDS: Enoxaparin 30 MG/0.3 ML Syringe SUBCUT SCH (20:45)
[2020-07-11] MEDS: OMEPRAZOLE 20 MG PO SCH ×2 (06:10→20:46)
[2020-07-11] MEDS: Levothyroxine 100 MCG Tab PO SCH (06:53)
[2020-07-11] MEDS: Metolazone 2.5 MG Tab PO SCH (06:53)
--- NOTE | 2020-07-11 08:43 | PCM.PN ---
- General Info Date of Service: 07/11/20 Subjective Update: He has improved shortness of breath. On 1 L of O2. However,still swollen,hands,scrotum markedly swollen. Functional Status: Reports: Pain Controlled, Tolerating Diet - Review of Systems General: Reports: No Symptoms HEENT: Reports: No Symptoms Pulmonary: Reports: No Symptoms Cardiovascular: Reports: Dyspnea on Exertion, Orthopnea, PND Gastrointestinal: Reports: No Symptoms - Patient Data Vitals - Most Recent: Last Vital Signs Temp 97.8 F 07/11/20 06:00 Pulse 68 07/11/20 06:00 Resp 20 07/11/20 06:00 BP 146/74 H 07/11/20 06:00 Pulse Ox 100 07/11/20 06:00 Weight - Most Recent: 135.341 kg I&O - Last 24 Hours: Intake & Output 07/10/20 07/11/20 07/11/20 22:59 06:59 14:59 Intake Total 100 Output Total 400 280 Balance -400 -180 Lab Results Last 24 Hours: Laboratory Results - last 24 hr 07/10/20 07/10/20 07/10/20 Range/Units 11:21 16:44 20:44 WBC (3.2-10.1) x10-3/uL RBC (3.90-5.90) x10(6)uL Hgb (12.9-17.7) g/dL Hct (38.3-50.1) % MCV (80.8-98.7) fL MCH (27.0-33.3) pg MCHC (28.7-35.3) g/dL RDW (12.4-15.0) % Plt Count (117-477) x10(3)uL MPV (6.7-11.0) fL Neut % (Auto) (40.3-71.8) % Lymph % (Auto) (15.8-45.3) % [place] % (Auto) (5.5-15.2) % Eos % (Auto) (0.1-6.8) % Baso % (Auto) (0.3-3.8) % Neut # (Auto) (1.7-6.9) x10-3/uL Lymph # (Auto) (0.5-4.5) x10-3/uL [place] # (Auto) (0.0-1.2) x10-3/uL Eos # (Auto) (0.0-0.6) x10-3/uL Baso # (Auto) (0.0-0.3) x10-3/uL Sodium (135-145) mmol/L Potassium (3.5-5.3) mmol/L Chloride (100-110) mmol/L Carbon Dioxide (21-32) mmol/L BUN (7-18) mg/dL Creatinine (0.70-1.30) mg/dL Est Cr Clr Drug Dosing mL/min Estimated GFR (MDRD) (>60) BUN/Creatinine Ratio (9-20) Glucose (80-116) mg/dL POC Glucose 142 H 158 H 138 H (80-116) mg/dL Calcium (8.6-10.2) mg/dL NT-Pro-B Natriuret Pep (<=125) pg/mL 07/11/20 07/11/20 07/11/20 Range/Units 06:05 06:05 06:05 WBC 8.1 (3.2-10.1) x10-3/uL RBC 3.16 L (3.90-5.90) x10(6)uL Hgb 7.7 L (12.9-17.7) g/dL Hct 25.5 L (38.3-50.1) % MCV 80.6 L (80.8-98.7) fL MCH 24.2 L (27.0-33.3) pg MCHC 30.1 (28.7-35.3) g/dL RDW 16.5 H (12.4-15.0) % Plt Count 137 (117-477) x10(3)uL MPV 11.1 H (6.7-11.0) fL Neut % (Auto) 70.2 (40.3-71.8) % Lymph % (Auto) 17.0 (15.8-45.3) % [place] % (Auto) 10.0 (5.5-15.2) % Eos % (Auto) 2.5 (0.1-6.8) % Baso % (Auto) 0.3 (0.3-3.8) % Neut # (Auto) 5.6 (1.7-6.9) x10-3/uL Lymph # (Auto) 1.4 (0.5-4.5) x10-3/uL [place] # (Auto) 0.8 (0.0-1.2) x10-3/uL Eos # (Auto) 0.2 (0.0-0.6) x10-3/uL Baso # (Auto) 0.0 (0.0-0.3) x10-3/uL Sodium 141 (135-145) mmol/L Potassium 5.0 (3.5-5.3) mmol/L Chloride 107 (100-110) mmol/L Carbon Dioxide 28 (21-32) mmol/L BUN 55 H (7-18) mg/dL Creatinine 3.9 H* (0.70-1.30) mg/dL Est Cr Clr Drug Dosing 15.99 mL/min Estimated GFR (MDRD) 19 L (>60) BUN/Creatinine Ratio 14.1 (9-20) Glucose 91 (80-116) mg/dL POC Glucose (80-116) mg/dL Calcium 7.1 L (8.6-10.2) mg/dL NT-Pro-B Natriuret Pep 42576 H* (<=125) pg/mL Kris Results Last 24 Hours: Microbiology 07/09/20 15:32 Urine Culture - Preliminary Urine, Clean Catch MIXED POSITIVE THONG DAY 1 Med Orders - Current: Current Medications Acetaminophen (Acetaminophen 325 Mg Tab) 650 mg PO Q4H PRN PRN Reason: Pain (Mild 1-3)/fever Ascorbic Acid (Ascorbic Acid 500 Mg Tab) 500 mg PO DAILY [facility] Last Admin: 07/10/20 10:17 Dose: 500 mg Documented by: Aspirin (Aspirin 81 Mg Tab.Ec) 81 mg PO DAILY [facility] Last Admin: 07/10/20 10:19 Dose: 81 mg Documented by: Calcitriol (Calcitriol 0.25 Mcg Cap *Ptom) 0.25 mcg PO DAILY [facility] Last Admin: 07/10/20 10:17 Dose: 0.25 mcg Documented by: Cholecalciferol (Cholecalciferol (Vitamin D3) 25 Mcg Tab) 50 mcg PO DAILY [facility] Last Admin: 07/10/20 10:18 Dose: 50 mcg Documented by: Clopidogrel Bisulfate (Clopidogrel 75 Mg Tab *Ptom) 75 mg PO DAILY [facility] Last Admin: 07/10/20 10:17 Dose: 75 mg Documented by: Cyanocobalamin (Cyanocobalamin (Vitamin B12) 1,000 Mcg Tab *Ptom) 1,000 mcg PO DAILY [facility] Last Admin: 07/10/20 10:17 Dose: 1,000 mcg Documented by: Enoxaparin Sodium (Enoxaparin 30 Mg/0.3 Ml Syringe) 30 mg SUBCUT Q24H [facility] Last Admin: 07/10/20 20:45 Dose: 30 mg Documented by: Ferrous Sulfate (Ferrous Sulfate 325 Mg Tab) 325 mg PO DAILY [facility] Last Admin: 07/10/20 10:17 Dose: 325 mg Documented by: Fish Oil (Fish Oil/[place]-3 Fatty Acids 1 Gm Cap) 1 gm PO DAILY [facility] Last Admin: 07/10/20 10:18 Dose: 1 gm Documented by: Furosemide (Furosemide 40 Mg/4 Ml Vial) 40 mg IVPUSH BIDDIURETIC [facility] Last Admin: 07/10/20 14:29 Dose: 40 mg Documented by: Insulin Glargine (Insulin Glargine,Human Rec. Analog 100 Units/Ml 3 Ml Pen) 20 units SUBCUT DAILY [facility] Last Admin: 07/10/20 11:25 Dose: 20 units Documented by: Levothyroxine Sodium (Levothyroxine 100 Mcg Tab *Ptom) 100 mcg PO ACBREAKFAST [facility] Last Admin: 07/11/20 06:53 Dose: 100 mcg Documented by: Magnesium Hydroxide (Magnesium Hydroxide 400 Mg/5 Ml Susp 30 Ml Cup) 30 ml PO Q12H PRN PRN Reason: Constipation Metolazone (Metolazone 2.5 Mg Tab) 2.5 mg PO DAILY@0730 [facility] Last Admin: 07/11/20 06:53 Dose: 2.5 mg Documented by: Multivitamins/Minerals/Vitamin C (Multivitamin Tab *Ptom) 1 tab PO DAILY [facility] Last Admin: 07/10/20 10:17 Dose: 1 tab Documented by: Omeprazole 20mg Caps (*Ptom) 0 each PO BID@0600,2100 [facility] Last Admin: 07/11/20 06:10 Dose: 1 each Documented by: Atorvastatin 80mg * (Ptom) 0 each PO DAILY [facility] Amlodipine 5mg/Benazepril 10mg * Ptom 0 each PO DAILY [facility] Ondansetron HCl (Ondansetron 4 Mg/2 Ml Sdv) 4 mg IV Q4H PRN PRN Reason: Nausea/Vomiting Tamsulosin HCl (Tamsulosin 0.4 Mg Cap.Er *Ptom) 0.4 mg PO DAILY [facility] Last Admin: 07/10/20 10:17 Dose: 0.4 mg Documented by: Zolpidem Tartrate (Zolpidem 5 Mg Tab) 5 mg PO BEDTIME PRN PRN Reason: Sleep Discontinued Medications Amlodipine Besylate (Amlodipine 5 Mg Tab) 5 mg PO DAILY [facility] Last Admin: 07/10/20 10:19 Dose: 5 mg Documented by: Atorvastatin Calcium (Atorvastatin 40 Mg Tab) 80 mg PO DAILY [facility] Last Admin: 07/10/20 10:18 Dose: 80 mg Documented by: Benazepril HCl (Benazepril 10 Mg Tab) 10 mg PO DAILY [facility] Last Admin: 07/10/20 10:19 Dose: 10 mg Documented by: Furosemide (Furosemide 40 Mg/4 Ml Vial) 40 mg IVPUSH NOW ONE Stop: 07/09/20 14:34 Last Admin: 07/09/20 15:12 Dose: 40 mg Documented by: Furosemide (Furosemide 40 Mg/4 Ml Vial) 40 mg IVPUSH BID [facility] Last Admin: 07/09/20 22:07 Dose: 40 mg Documented by: Nitroglycerin/Dextrose (Nitroglycerin 25 Mg/D5w 250 Ml) 25 mg in 250 mls @ 30 mls/hr IV TITRATE [facility]; Protocol Last Admin: 07/10/20 08:26 Dose: 50 mcg/min, 30 mls/hr Documented by: Nitroglycerin/Dextrose (Nitroglycerin 25 Mg/D5w 250 Ml) 25 mg in 250 mls @ 30 mls/hr IV TITRATE [facility]; Protocol Insulin Glargine (Insulin Glargine,Human Rec. Analog 100 Units/Ml 3 Ml Pen) 20 units SUBCUT DAILY PRN PRN Reason: Hyperglycemia Non-Formulary Medication (Amlodipine/Benazepril [Lotrel 5-10 Mg]) 1 cap PO DAILY [facility] Non-Formulary Medication (Cinnamon Bark [Cinnamon]) 1,000 mg PO BID [facility] Last Admin: 07/10/20 16:41 Dose: Not Given Documented by: Pantoprazole Sodium (Pantoprazole 40 Mg Tab.Cr) 40 mg PO ACBREAKFAST [facility] Last Admin: 07/10/20 07:04 Dose: 40 mg Documented by: - Exam Quality Assessment: Supplemental Oxygen General: Alert, Oriented HEENT: Pupils Equal Lungs: Crackles Cardiovascular: Regular Rate (Male) Exam: Scrotal Swelling Extremities: Pedal Edema - Patient Data Lab Results Last 24 hrs: Laboratory Results - last 24 hr 07/10/20 07/10/20 07/10/20 Range/Units 11:21 16:44 20:44 WBC (3.2-10.1) x10-3/uL RBC (3.90-5.90) x10(6)uL Hgb (12.9-17.7) g/dL Hct (38.3-50.1) % MCV (80.8-98.7) fL MCH (27.0-33.3) pg MCHC (28.7-35.3) g/dL RDW (12.4-15.0) % Plt Count (117-477) x10(3)uL MPV (6.7-11.0) fL Neut % (Auto) (40.3-71.8) % Lymph % (Auto) (15.8-45.3) % [place] % (Auto) (5.5-15.2) % Eos % (Auto) (0.1-6.8) % Baso % (Auto) (0.3-3.8) % Neut # (Auto) (1.7-6.9) x10-3/uL Lymph # (Auto) (0.5-4.5) x10-3/uL [place] # (Auto) (0.0-1.2) x10-3/uL Eos # (Auto) (0.0-0.6) x10-3/uL Baso # (Auto) (0.0-0.3) x10-3/uL Sodium (135-145) mmol/L Potassium (3.5-5.3) mmol/L Chloride (100-110) mmol/L Carbon Dioxide (21-32) mmol/L BUN (7-18) mg/dL Creatinine (0.70-1.30) mg/dL Est Cr Clr Drug Dosing mL/min Estimated GFR (MDRD) (>60) BUN/Creatinine Ratio (9-20) Glucose (80-116) mg/dL POC Glucose 142 H 158 H 138 H (80-116) mg/dL Calcium (8.6-10.2) mg/dL NT-Pro-B Natriuret Pep (<=125) pg/mL 07/11/20 07/11/20 07/11/20 Range/Units 06:05 06:05 06:05 WBC 8.1 (3.2-10.1) x10-3/uL RBC 3.16 L (3.90-5.90) x10(6)uL Hgb 7.7 L (12.9-17.7) g/dL Hct 25.5 L (38.3-50.1) % MCV 80.6 L (80.8-98.7) fL MCH 24.2 L (27.0-33.3) pg MCHC 30.1 (28.7-35.3) g/dL RDW 16.5 H (12.4-15.0) % Plt Count 137 (117-477) x10(3)uL MPV 11.1 H (6.7-11.0) fL Neut % (Auto) 70.2 (40.3-71.8) % Lymph % (Auto) 17.0 (15.8-45.3) % [place] % (Auto) 10.0 (5.5-15.2) % Eos % (Auto) 2.5 (0.1-6.8) % Baso % (Auto) 0.3 (0.3-3.8) % Neut # (Auto) 5.6 (1.7-6.9) x10-3/uL Lymph # (Auto) 1.4 (0.5-4.5) x10-3/uL [place] # (Auto) 0.8 (0.0-1.2) x10-3/uL Eos # (Auto) 0.2 (0.0-0.6) x10-3/uL Baso # (Auto) 0.0 (0.0-0.3) x10-3/uL Sodium 141 (135-145) mmol/L Potassium 5.0 (3.5-5.3) mmol/L Chloride 107 (100-110) mmol/L Carbon Dioxide 28 (21-32) mmol/L BUN 55 H (7-18) mg/dL Creatinine 3.9 H* (0.70-1.30) mg/dL Est Cr Clr Drug Dosing 15.99 mL/min Estimated GFR (MDRD) 19 L (>60) BUN/Creatinine Ratio 14.1 (9-20) Glucose 91 (80-116) mg/dL POC Glucose (80-116) mg/dL Calcium 7.1 L (8.6-10.2) mg/dL NT-Pro-B Natriuret Pep 57818 H* (<=125) pg/mL Result Diagrams: 07/11/20 06:05 07/11/20 06:05 Kris Results Last 24 hrs: Microbiology 07/09/20 15:32 Urine Culture - Preliminary Urine, Clean Catch MIXED POSITIVE THONG DAY 1 Sepsis Event Note - Evaluation Sepsis Screening Result: No Definite Risk - Focused Exam Vital Signs: Vital Signs Temp Pulse Resp BP Pulse Ox Pulse Ox 07/11/20 06:00 97.8 F 68 20 146/74 H 100 07/11/20 01:00 91 L 07/11/20 00:00 98.1 F 71 22 H 117/62 91 L 07/10/20 22:30 77 20 97 - Problem List & Annotations (1) Acute pulmonary edema SNOMED Code(s): 26329941 Code(s): J81.0 - ACUTE PULMONARY EDEMA Status: Acute Current Visit: Yes (2) CKD (chronic kidney disease) SNOMED Code(s): 119638074 Code(s): N18.9 - CHRONIC KIDNEY DISEASE, UNSPECIFIED Status: Chronic Current Visit: Yes Qualifiers: Chronic kidney disease stage: stage 4 (severe) Qualified Code(s): N18.4 - Chronic kidney disease, stage 4 (severe) (3) Diabetes type 2, controlled SNOMED Code(s): 38922265, 062360412 Code(s): E11.9 - TYPE 2 DIABETES MELLITUS WITHOUT COMPLICATIONS Status: Chronic Current Visit: Yes Qualifiers: Diabetes mellitus terminal system operator insulin use: with shelter use Diabetes mellitus complication status: with circulatory complication (4) SOBOE (shortness of breath on exertion) SNOMED Code(s): 56641124 Code(s): R06.02 - SHORTNESS OF BREATH Status: Acute Current Visit: No Annotation/Comment:: Obtain Echo,BNP.Start Lasix IV. (5) Anemia SNOMED Code(s): 625571126 Code(s): D64.9 - ANEMIA, UNSPECIFIED Status: Chronic Current Visit: No Qualifiers: Anemia type: due to chronic kidney disease Chronic kidney disease stage: stage 3 (moderate) (6) Hx of BKA Status: Chronic Current Visit: No Qualifiers: Laterality: right Qualified Code(s): Z89.511 - Acquired absence of right leg below knee (7) Obesity SNOMED Code(s): 035600299, 928729394 Code(s): E66.9 - OBESITY, UNSPECIFIED Status: Chronic Current Visit: No Qualifiers: Obesity type: due to excess calories (8) Anasarca SNOMED Code(s): 039052224, 568596274 Code(s): R60.1 - GENERALIZED EDEMA Status: Acute Current Visit: Yes (9) Diabetes type 2, controlled SNOMED Code(s): 06481714, 357888218 Code(s): E11.9 - TYPE 2 DIABETES MELLITUS WITHOUT COMPLICATIONS Status: Acute Current Visit: No Qualifiers: Diabetes mellitus terminal system operator insulin use: with terminal system operator use Diabetes mellitus complication status: with kidney complications Chronic kidney disease stage: stage 3 (moderate) Annotation/Comment:: Continue once daily insulin at home. (10) HTN (hypertension) SNOMED Code(s): 55790656 Code(s): I10 - ESSENTIAL (PRIMARY) HYPERTENSION Status: Chronic Current Visit: No Qualifiers: Hypertension type: essential hypertension Qualified Code(s): I10 - Essential (primary) hypertension Annotation/Comment:: Ran high into the 160s during hospitalization. After diuresis, reassess. - Problem List Review Problem List Initiated/Reviewed/Updated: Yes - My Orders Last 24 Hours: My Active Orders 07/10/20 09:00 metOLazone [Zaroxolyn] 2.5 mg PO DAILY@0730 07/10/20 Lunch Consistent Carbohydrate Diet [DIET] Insulin Glarg,Human.Rec.Analog [LantUS Solostar] 20 units SUBCUT DAILY 07/11/20 09:00 Non-Formulary Medication [NF Drug] 0 each PO DAILY 07/12/20 05:11 PRO B-TYPE NATRIUR PEPT,BNPPRO [CHEM] DAILY 07/13/20 05:11 PRO B-TYPE NATRIUR PEPT,BNPPRO [CHEM] DAILY 07/14/20 05:11 PRO B-TYPE NATRIUR PEPT,BNPPRO [CHEM] DAILY - Plan Plan:: Continue diuresis. DC Telemetry.Strict I/O,with daily weights. Repeat labs in AM.Elevate scrotum. Ambulate. IS
[2020-07-11] MEDS: Furosemide 40 MG/4 ML VIAL IVPUSH SCH ×2 (09:00→15:30)
[2020-07-11] MEDS: Aspirin 81 MG Tab.EC PO SCH (09:47)
[2020-07-11] MEDS: Tamsulosin 0.4 MG Cap.ER PO SCH (09:49)
[2020-07-11] MEDS: AMLODIPINE PO SCH (09:49)
[2020-07-11] MEDS: [UNRECOGNIZED DRUG - OTHER] PO SCH (09:49)
[2020-07-11] MEDS: ATORVASTATIN 80 MG PO SCH (09:50)
[2020-07-11] MEDS: Clopidogrel 75 MG Tab PO SCH (09:51)
[2020-07-11] MEDS: Calcitriol 0.25 MCG Cap PO SCH (09:51)
[2020-07-11] MEDS: Multivitamin Tab PO SCH (09:52)
[2020-07-11] MEDS: Cyanocobalamin (Vitamin B12) 1,000 MCG Tab PO SCH (09:52)
[2020-07-11] MEDS: Insulin Glargine,Human Rec. Analog 100 Units/ML 3 ML Pen SUBCUT SCH (09:53)
[2020-07-11] MEDS ORDERED: Furosemide 40 MG/4 ML VIAL IVPUSH ONE (16:28)
[2020-07-11] MEDS: Enoxaparin 30 MG/0.3 ML Syringe SUBCUT SCH (20:47)
[2020-07-12] MEDS: OMEPRAZOLE 20 MG PO SCH ×2 (06:06→20:09)
[2020-07-12] MEDS: Levothyroxine 100 MCG Tab PO SCH (06:44)
[2020-07-12] MEDS: Metolazone 2.5 MG Tab PO SCH (06:44)
[2020-07-12] MEDS ORDERED: Bacitracin Oint 1 GM U/D Packet TOP PRN (07:39)
--- NOTE | 2020-07-12 08:03 | PCM.PN ---
- General Info Date of Service: 07/12/20 Admission Dx/Problem (Free Text): Admission Diagnosis/Problem Admission Diagnosis/Problem Heart failure Subjective Update: Patient was sitting on the side of the bed eating breakfast when I entered the room. He states that he feels better but that he continues to have pain and concern for the swelling in his scrotum. He states that he can now walk to the bathroom and back without significant shortness of breath. He would like to know when he can go home. Functional Status: Reports: Pain Controlled, Tolerating Diet, Ambulating, Urinating - Review of Systems General: Reports: No Symptoms HEENT: Reports: No Symptoms Pulmonary: Reports: Shortness of Breath Cardiovascular: Reports: No Symptoms Gastrointestinal: Reports: No Symptoms Genitourinary: Reports: Other (Scrotal pain secondary to swelling) Musculoskeletal: Reports: No Symptoms Skin: Reports: No Symptoms Neurological: Reports: No Symptoms Psychiatric: Reports: No Symptoms - Patient Data Vitals - Most Recent: Last Vital Signs Temp 36.4 C 07/12/20 05:40 Pulse 69 07/12/20 05:40 Resp 20 07/12/20 05:40 BP 146/75 H 07/12/20 05:40 Pulse Ox 94 L 07/12/20 05:40 Weight - Most Recent: 134.802 kg I&O - Last 24 Hours: Intake & Output 07/11/20 07/12/20 07/12/20 22:59 06:59 14:59 Intake Total 1000 250 Output Total 1030 350 Balance -30 -100 Lab Results Last 24 Hours: Laboratory Results - last 24 hr 07/11/20 07/11/20 07/11/20 Range/Units 11:32 16:27 20:42 WBC (3.2-10.1) x10-3/uL RBC (3.90-5.90) x10(6)uL Hgb (12.9-17.7) g/dL Hct (38.3-50.1) % MCV (80.8-98.7) fL MCH (27.0-33.3) pg MCHC (28.7-35.3) g/dL RDW (12.4-15.0) % Plt Count (117-477) x10(3)uL MPV (6.7-11.0) fL Neut % (Auto) (40.3-71.8) % Lymph % (Auto) (15.8-45.3) % [place] % (Auto) (5.5-15.2) % Eos % (Auto) (0.1-6.8) % Baso % (Auto) (0.3-3.8) % Neut # (Auto) (1.7-6.9) x10-3/uL Lymph # (Auto) (0.5-4.5) x10-3/uL [place] # (Auto) (0.0-1.2) x10-3/uL Eos # (Auto) (0.0-0.6) x10-3/uL Baso # (Auto) (0.0-0.3) x10-3/uL Sodium (135-145) mmol/L Potassium (3.5-5.3) mmol/L Chloride (100-110) mmol/L Carbon Dioxide (21-32) mmol/L BUN (7-18) mg/dL Creatinine (0.70-1.30) mg/dL Est Cr Clr Drug Dosing mL/min Estimated GFR (MDRD) (>60) BUN/Creatinine Ratio (9-20) Glucose (80-116) mg/dL POC Glucose 92 133 H 161 H (80-116) mg/dL Calcium (8.6-10.2) mg/dL NT-Pro-B Natriuret Pep (<=125) pg/mL 07/12/20 07/12/20 07/12/20 Range/Units 06:20 06:20 06:20 WBC 7.5 (3.2-10.1) x10-3/uL RBC 3.32 L (3.90-5.90) x10(6)uL Hgb 8.1 L (12.9-17.7) g/dL Hct 26.9 L (38.3-50.1) % MCV 81.1 (80.8-98.7) fL MCH 24.3 L (27.0-33.3) pg MCHC 29.9 (28.7-35.3) g/dL RDW 16.4 H (12.4-15.0) % Plt Count 148 (117-477) x10(3)uL MPV 10.9 (6.7-11.0) fL Neut % (Auto) 73.2 H (40.3-71.8) % Lymph % (Auto) 15.3 L (15.8-45.3) % [place] % (Auto) 8.2 (5.5-15.2) % Eos % (Auto) 2.9 (0.1-6.8) % Baso % (Auto) 0.4 (0.3-3.8) % Neut # (Auto) 5.5 (1.7-6.9) x10-3/uL Lymph # (Auto) 1.1 (0.5-4.5) x10-3/uL [place] # (Auto) 0.6 (0.0-1.2) x10-3/uL Eos # (Auto) 0.2 (0.0-0.6) x10-3/uL Baso # (Auto) 0.0 (0.0-0.3) x10-3/uL Sodium 141 (135-145) mmol/L Potassium 4.6 (3.5-5.3) mmol/L Chloride 105 (100-110) mmol/L Carbon Dioxide 29 (21-32) mmol/L BUN 59 H (7-18) mg/dL Creatinine 3.8 H* (0.70-1.30) mg/dL Est Cr Clr Drug Dosing 16.41 mL/min Estimated GFR (MDRD) 19 L (>60) BUN/Creatinine Ratio 15.5 (9-20) Glucose 115 (80-116) mg/dL POC Glucose (80-116) mg/dL Calcium 7.4 L (8.6-10.2) mg/dL NT-Pro-B Natriuret Pep 9275 H* (<=125) pg/mL Kris Results Last 24 Hours: Microbiology 07/09/20 15:32 Urine Culture - Final Urine, Clean Catch MIXED POSITIVE THONG DAY 2 Med Orders - Current: Current Medications Acetaminophen (Acetaminophen 325 Mg Tab) 650 mg PO Q4H PRN PRN Reason: Pain (Mild 1-3)/fever Ascorbic Acid (Ascorbic Acid 500 Mg Tab) 500 mg PO DAILY [facility] Last Admin: 07/10/20 10:17 Dose: 500 mg Documented by: Aspirin (Aspirin 81 Mg Tab.Ec) 81 mg PO DAILY [facility] Last Admin: 07/11/20 09:47 Dose: 81 mg Documented by: Bacitracin (Bacitracin Oint 1 Gm U/D Packet) 1 dose TOP DAILY PRN PRN Reason: left lower leg wound Calcitriol (Calcitriol 0.25 Mcg Cap *Ptom) 0.25 mcg PO DAILY [facility] Last Admin: 07/11/20 09:51 Dose: 0.25 mcg Documented by: Cholecalciferol (Cholecalciferol (Vitamin D3) 25 Mcg Tab) 50 mcg PO DAILY [facility] Last Admin: 07/10/20 10:18 Dose: 50 mcg Documented by: Clopidogrel Bisulfate (Clopidogrel 75 Mg Tab *Ptom) 75 mg PO DAILY [facility] Last Admin: 07/11/20 09:51 Dose: 75 mg Documented by: Cyanocobalamin (Cyanocobalamin (Vitamin B12) 1,000 Mcg Tab *Ptom) 1,000 mcg PO DAILY [facility] Last Admin: 07/11/20 09:52 Dose: 1,000 mcg Documented by: Enoxaparin Sodium (Enoxaparin 30 Mg/0.3 Ml Syringe) 30 mg SUBCUT Q24H [facility] Last Admin: 07/11/20 20:47 Dose: 30 mg Documented by: Ferrous Sulfate (Ferrous Sulfate 325 Mg Tab) 325 mg PO DAILY [facility] Last Admin: 07/10/20 10:17 Dose: 325 mg Documented by: Fish Oil (Fish Oil/[place]-3 Fatty Acids 1 Gm Cap) 1 gm PO DAILY [facility] Last Admin: 07/10/20 10:18 Dose: 1 gm Documented by: Furosemide (Furosemide 40 Mg/4 Ml Vial) 40 mg IVPUSH BIDDIURETIC [facility] Last Admin: 07/11/20 15:30 Dose: 40 mg Documented by: Insulin Glargine (Insulin Glargine,Human Rec. Analog 100 Units/Ml 3 Ml Pen) 20 units SUBCUT DAILY [facility] Last Admin: 07/11/20 09:53 Dose: 20 units Documented by: Levothyroxine Sodium (Levothyroxine 100 Mcg Tab *Ptom) 100 mcg PO ACBREAKFAST [facility] Last Admin: 07/12/20 06:44 Dose: 100 mcg Documented by: Magnesium Hydroxide (Magnesium Hydroxide 400 Mg/5 Ml Susp 30 Ml Cup) 30 ml PO Q12H PRN PRN Reason: Constipation Metolazone (Metolazone 2.5 Mg Tab) 2.5 mg PO DAILY@0730 [facility] Last Admin: 07/12/20 06:44 Dose: 2.5 mg Documented by: Multivitamins/Minerals/Vitamin C (Multivitamin Tab *Ptom) 1 tab PO DAILY [facility] Last Admin: 07/11/20 09:52 Dose: 1 tab Documented by: Omeprazole 20mg Caps (*Ptom) 0 each PO BID@0600,2100 [facility] Last Admin: 07/12/20 06:06 Dose: 1 each Documented by: Atorvastatin 80mg * (Ptom) 0 each PO DAILY [facility] Last Admin: 07/11/20 09:50 Dose: 1 each Documented by: Amlodipine 5mg/Benazepril 10mg * Ptom 0 each PO DAILY [facility] Last Admin: 07/11/20 09:49 Dose: 1 each Documented by: Ondansetron HCl (Ondansetron 4 Mg/2 Ml Sdv) 4 mg IV Q4H PRN PRN Reason: Nausea/Vomiting Tamsulosin HCl (Tamsulosin 0.4 Mg Cap.Er *Ptom) 0.4 mg PO DAILY [facility] Last Admin: 07/11/20 09:49 Dose: 0.4 mg Documented by: Zolpidem Tartrate (Zolpidem 5 Mg Tab) 5 mg PO BEDTIME PRN PRN Reason: Sleep Discontinued Medications Amlodipine Besylate (Amlodipine 5 Mg Tab) 5 mg PO DAILY [facility] Last Admin: 07/10/20 10:19 Dose: 5 mg Documented by: Atorvastatin Calcium (Atorvastatin 40 Mg Tab) 80 mg PO DAILY [facility] Last Admin: 07/10/20 10:18 Dose: 80 mg Documented by: Benazepril HCl (Benazepril 10 Mg Tab) 10 mg PO DAILY [facility] Last Admin: 07/10/20 10:19 Dose: 10 mg Documented by: Furosemide (Furosemide 40 Mg/4 Ml Vial) 40 mg IVPUSH NOW ONE Stop: 07/09/20 14:34 Last Admin: 07/09/20 15:12 Dose: 40 mg Documented by: Furosemide (Furosemide 40 Mg/4 Ml Vial) 40 mg IVPUSH BID [facility] Last Admin: 07/09/20 22:07 Dose: 40 mg Documented by: Furosemide (Furosemide 40 Mg/4 Ml Vial) 40 mg IVPUSH NOW ONE Stop: 07/11/20 16:29 Last Admin: 07/11/20 16:34 Dose: 40 mg Documented by: Nitroglycerin/Dextrose (Nitroglycerin 25 Mg/D5w 250 Ml) 25 mg in 250 mls @ 30 mls/hr IV TITRATE [facility]; Protocol Last Admin: 07/10/20 08:26 Dose: 50 mcg/min, 30 mls/hr Documented by: Nitroglycerin/Dextrose (Nitroglycerin 25 Mg/D5w 250 Ml) 25 mg in 250 mls @ 30 mls/hr IV TITRATE [facility]; Protocol Insulin Glargine (Insulin Glargine,Human Rec. Analog 100 Units/Ml 3 Ml Pen) 20 units SUBCUT DAILY PRN PRN Reason: Hyperglycemia Non-Formulary Medication (Amlodipine/Benazepril [Lotrel 5-10 Mg]) 1 cap PO DAILY [facility] Non-Formulary Medication (Cinnamon Bark [Cinnamon]) 1,000 mg PO BID [facility] Last Admin: 07/10/20 16:41 Dose: Not Given Documented by: Pantoprazole Sodium (Pantoprazole 40 Mg Tab.Cr) 40 mg PO ACBREAKFAST [facility] Last Admin: 07/10/20 07:04 Dose: 40 mg Documented by: - Exam Quality Assessment: Supplemental Oxygen, DVT Prophylaxis, Skin Breakdown General: Alert, Oriented, Cooperative, No Acute Distress HEENT: EOMI Lungs: Crackles (Significantly reduced airflow bilateral lower lungs, examined while the patient was standing) Cardiovascular: Regular Rate, Regular Rhythm, Murmurs, Other (Auscultation revealed slightly irregular rhythm but review of telemetry showed ectopy likely PACs) GI/Abdominal Exam: Other (Pitting edema to the umbilicus) (Male) Exam: Scrotal Swelling, Scrotum Tenderness (L) Extremities: Other (Right BKA, pitting edema throughout both lower extremities) Neurological: No New Focal Deficit Psy/Mental Status: Alert, Normal Affect, Normal Mood - Patient Data Lab Results Last 24 hrs: Laboratory Results - last 24 hr 07/11/20 07/11/20 07/11/20 Range/Units 11:32 16:27 20:42 WBC (3.2-10.1) x10-3/uL RBC (3.90-5.90) x10(6)uL Hgb (12.9-17.7) g/dL Hct (38.3-50.1) % MCV (80.8-98.7) fL MCH (27.0-33.3) pg MCHC (28.7-35.3) g/dL RDW (12.4-15.0) % Plt Count (117-477) x10(3)uL MPV (6.7-11.0) fL Neut % (Auto) (40.3-71.8) % Lymph % (Auto) (15.8-45.3) % [place] % (Auto) (5.5-15.2) % Eos % (Auto) (0.1-6.8) % Baso % (Auto) (0.3-3.8) % Neut # (Auto) (1.7-6.9) x10-3/uL Lymph # (Auto) (0.5-4.5) x10-3/uL [place] # (Auto) (0.0-1.2) x10-3/uL Eos # (Auto) (0.0-0.6) x10-3/uL Baso # (Auto) (0.0-0.3) x10-3/uL Sodium (135-145) mmol/L Potassium (3.5-5.3) mmol/L Chloride (100-110) mmol/L Carbon Dioxide (21-32) mmol/L BUN (7-18) mg/dL Creatinine (0.70-1.30) mg/dL Est Cr Clr Drug Dosing mL/min Estimated GFR (MDRD) (>60) BUN/Creatinine Ratio (9-20) Glucose (80-116) mg/dL POC Glucose 92 133 H 161 H (80-116) mg/dL Calcium (8.6-10.2) mg/dL NT-Pro-B Natriuret Pep (<=125) pg/mL 07/12/20 07/12/20 07/12/20 Range/Units 06:20 06:20 06:20 WBC 7.5 (3.2-10.1) x10-3/uL RBC 3.32 L (3.90-5.90) x10(6)uL Hgb 8.1 L (12.9-17.7) g/dL Hct 26.9 L (38.3-50.1) % MCV 81.1 (80.8-98.7) fL MCH 24.3 L (27.0-33.3) pg MCHC 29.9 (28.7-35.3) g/dL RDW 16.4 H (12.4-15.0) % Plt Count 148 (117-477) x10(3)uL MPV 10.9 (6.7-11.0) fL Neut % (Auto) 73.2 H (40.3-71.8) % Lymph % (Auto) 15.3 L (15.8-45.3) % [place] % (Auto) 8.2 (5.5-15.2) % Eos % (Auto) 2.9 (0.1-6.8) % Baso % (Auto) 0.4 (0.3-3.8) % Neut # (Auto) 5.5 (1.7-6.9) x10-3/uL Lymph # (Auto) 1.1 (0.5-4.5) x10-3/uL [place] # (Auto) 0.6 (0.0-1.2) x10-3/uL Eos # (Auto) 0.2 (0.0-0.6) x10-3/uL Baso # (Auto) 0.0 (0.0-0.3) x10-3/uL Sodium 141 (135-145) mmol/L Potassium 4.6 (3.5-5.3) mmol/L Chloride 105 (100-110) mmol/L Carbon Dioxide 29 (21-32) mmol/L BUN 59 H (7-18) mg/dL Creatinine 3.8 H* (0.70-1.30) mg/dL Est Cr Clr Drug Dosing 16.41 mL/min Estimated GFR (MDRD) 19 L (>60) BUN/Creatinine Ratio 15.5 (9-20) Glucose 115 (80-116) mg/dL POC Glucose (80-116) mg/dL Calcium 7.4 L (8.6-10.2) mg/dL NT-Pro-B Natriuret Pep 9275 H* (<=125) pg/mL Result Diagrams: 07/12/20 06:20 07/12/20 06:20 Kris Results Last 24 hrs: Microbiology 07/09/20 15:32 Urine Culture - Final Urine, Clean Catch MIXED POSITIVE THONG DAY 2 Sepsis Event Note - Evaluation Sepsis Screening Result: No Definite Risk - Focused Exam Vital Signs: Vital Signs Temp Pulse Resp BP Pulse Ox Pulse Ox 07/12/20 05:40 36.4 C 69 20 146/75 H 94 L 07/12/20 01:00 97 07/12/20 00:00 36.4 C 68 20 118/64 97 07/11/20 20:30 36.6 C 75 22 H 152/81 H 95 - Problem List & Annotations (1) Acute exacerbation of CHF (congestive heart failure) SNOMED Code(s): 128146890, 46915743614219 Code(s): I50.9 - HEART FAILURE, UNSPECIFIED Status: Acute Current Visit: Yes (2) Acute on chronic renal insufficiency SNOMED Code(s): 339133149 Code(s): N28.9 - DISORDER OF KIDNEY AND URETER, UNSPECIFIED; N18.9 - CHRONIC KIDNEY DISEASE, UNSPECIFIED Status: Acute Current Visit: Yes (3) Acute pulmonary edema SNOMED Code(s): 35370567 Code(s): J81.0 - ACUTE PULMONARY EDEMA Status: Acute Current Visit: Yes (4) Anasarca SNOMED Code(s): 362694552, 448247979 Code(s): R60.1 - GENERALIZED EDEMA Status: Acute Current Visit: Yes Annotation/Comment:: Improved. Continue diuresis at home with Lasix and Zaroxolyn as above. (5) Diabetes type 2, controlled SNOMED Code(s): 56605076, 036847211 Code(s): E11.9 - TYPE 2 DIABETES MELLITUS WITHOUT COMPLICATIONS Status: Chronic Current Visit: Yes Qualifiers: Diabetes mellitus oil heaterman insulin use: with oil heaterman use Diabetes mellitus complication status: with circulatory complication (6) CKD (chronic kidney disease) stage 4, GFR 15-29 ml/min SNOMED Code(s): 553170972 Code(s): N18.4 - CHRONIC KIDNEY DISEASE, STAGE 4 (SEVERE) Status: Chronic Current Visit: Yes (7) Palliative care encounter SNOMED Code(s): 367820396, 819276157 Code(s): Z51.5 - ENCOUNTER FOR PALLIATIVE CARE Status: Acute Current Visit: No (8) SOBOE (shortness of breath on exertion) SNOMED Code(s): 62384472 Code(s): R06.02 - SHORTNESS OF BREATH Status: Acute Current Visit: No Annotation/Comment:: Obtain Echo,BNP.Start Lasix IV. (9) Anemia SNOMED Code(s): 720869159 Code(s): D64.9 - ANEMIA, UNSPECIFIED Status: Chronic Current Visit: No Qualifiers: Anemia type: due to chronic kidney disease Chronic kidney disease stage: stage 4 (severe) Qualified Code(s): N18.4 - Chronic kidney disease, stage 4 (severe); D63.1 - Anemia in chronic kidney disease (10) HTN (hypertension) SNOMED Code(s): 26698190 Code(s): I10 - ESSENTIAL (PRIMARY) HYPERTENSION Status: Chronic Current Visit: No Qualifiers: Hypertension type: essential hypertension Qualified Code(s): I10 - Essential (primary) hypertension Annotation/Comment:: Ran high into the 160s during hospitalization. After diuresis, reassess. (11) Hx of BKA Status: Chronic Current Visit: No Qualifiers: Laterality: right Qualified Code(s): Z89.511 - Acquired absence of right leg below knee (12) Hypothyroid SNOMED Code(s): 39471318 Code(s): E03.9 - HYPOTHYROIDISM, UNSPECIFIED Status: Chronic Current Visit: No Qualifiers: Hypothyroidism type: unspecified Qualified Code(s): E03.9 - Hypothyroidism, unspecified Annotation/Comment:: Recheck TSH,continue home meds (13) Obesity SNOMED Code(s): 345512671, 986840325 Code(s): E66.9 - OBESITY, UNSPECIFIED Status: Chronic Current Visit: No Qualifiers: Obesity type: due to excess calories - Problem List Review Problem List Initiated/Reviewed/Updated: Yes - My Orders Last 24 Hours: My Active Orders 07/12/20 07:39 Bacitracin [Bacitracin Oint 1 GM] 1 dose TOP DAILY PRN 07/12/20 Lunch Fluid Restriction [DIET] Sodium Restricted Diet [DIET] 07/13/20 COMPREHENSIVE METABOLIC PN,CMP [CHEM] Routine - Plan Plan:: Continue diuresis. DC Telemetry.Strict I/O,with daily weights. Diet with salt and fluid restrictions, no salt added, 1200 mL fluid restriction daily. Comprehensive metabolic panel tomorrow to monitor renal function and liver fun ction. Consider discharge with torsemide and continue metolazone. Strict in and out showed a -180 mL fluid balance over the last 24 hours Continue enoxaparin for DVT prophylaxis Wound care for left lower extremity abrasion Discharge considered once edema has normalized to left lower extremity below the knee and scrotal swelling has resolved, likely 2 to 3 days
[2020-07-12] MEDS: Furosemide 40 MG/4 ML VIAL IVPUSH SCH ×2 (08:10→14:37)
[2020-07-12] MEDS: Tamsulosin 0.4 MG Cap.ER PO SCH (08:11)
[2020-07-12] MEDS: Aspirin 81 MG Tab.EC PO SCH (08:11)
[2020-07-12] MEDS: [UNRECOGNIZED DRUG - OTHER] PO SCH (08:12)
[2020-07-12] MEDS: AMLODIPINE PO SCH (08:12)
[2020-07-12] MEDS: ATORVASTATIN 80 MG PO SCH (08:12)
[2020-07-12] MEDS: Calcitriol 0.25 MCG Cap PO SCH (08:13)
[2020-07-12] MEDS: Multivitamin Tab PO SCH (08:13)
[2020-07-12] MEDS: Clopidogrel 75 MG Tab PO SCH (08:13)
[2020-07-12] MEDS: Cyanocobalamin (Vitamin B12) 1,000 MCG Tab PO SCH (08:14)
[2020-07-12] MEDS: Insulin Glargine,Human Rec. Analog 100 Units/ML 3 ML Pen SUBCUT SCH (08:19)
[2020-07-12] MEDS: Enoxaparin 30 MG/0.3 ML Syringe SUBCUT SCH (20:09)
[2020-07-13] MEDS: OMEPRAZOLE 20 MG PO SCH (05:31)
[2020-07-13] MEDS: Metolazone 2.5 MG Tab PO SCH (06:32)
[2020-07-13] MEDS: Levothyroxine 100 MCG Tab PO SCH (06:32)
[2020-07-13] MEDS: Multivitamin Tab PO SCH (08:30)
[2020-07-13] MEDS: ATORVASTATIN 80 MG PO SCH (08:30)
[2020-07-13] MEDS: Calcitriol 0.25 MCG Cap PO SCH (08:31)
[2020-07-13] MEDS: Cyanocobalamin (Vitamin B12) 1,000 MCG Tab PO SCH (08:31)
[2020-07-13] MEDS: AMLODIPINE PO SCH (08:31)
[2020-07-13] MEDS: [UNRECOGNIZED DRUG - OTHER] PO SCH (08:31)
[2020-07-13] MEDS: Clopidogrel 75 MG Tab PO SCH (08:32)
[2020-07-13] MEDS: Furosemide 40 MG/4 ML VIAL IVPUSH SCH ×3 (08:32→21:28)
[2020-07-13] MEDS: Tamsulosin 0.4 MG Cap.ER PO SCH (08:32)
[2020-07-13] MEDS: Aspirin 81 MG Tab.EC PO SCH (08:41)
[2020-07-13] MEDS: Insulin Glargine,Human Rec. Analog 100 Units/ML 3 ML Pen SUBCUT SCH (08:46)
[2020-07-13] MEDS: Sodium Chloride 0.9% 10 ML Syringe FLUSH PRN ×3 (09:06→21:30)
[2020-07-13] MEDS ORDERED: Metolazone 2.5 MG Tab PO ONE (09:15)
--- NOTE | 2020-07-13 09:17 | PCM.PN ---
- General Info Date of Service: 07/13/20 Admission Dx/Problem (Free Text): Admission Diagnosis/Problem Admission Diagnosis/Problem Heart failure Subjective Update: Patient states that overall he feels better but he thinks that the scrotal swelling has actually gotten worse Functional Status: Reports: Pain Controlled, Tolerating Diet, Ambulating, Urinating - Review of Systems General: Reports: Weakness, Fatigue, Malaise HEENT: Reports: No Symptoms Pulmonary: Reports: Shortness of Breath Gastrointestinal: Reports: No Symptoms Genitourinary: Reports: No Symptoms Musculoskeletal: Reports: Leg Pain, Joint Pain Skin: Reports: No Symptoms Neurological: Reports: No Symptoms Psychiatric: Reports: No Symptoms - Patient Data Vitals - Most Recent: Last Vital Signs Temp 36.4 C 07/13/20 05:45 Pulse 68 07/13/20 05:45 Resp 20 07/13/20 05:45 BP 134/68 07/13/20 05:45 Pulse Ox 100 07/13/20 05:45 Weight - Most Recent: 133.129 kg I&O - Last 24 Hours: Intake & Output 07/12/20 07/13/20 07/13/20 22:59 06:59 14:59 Intake Total 25 0 Output Total 700 720 Balance -675 -720 Lab Results Last 24 Hours: Laboratory Results - last 24 hr 07/12/20 07/12/20 07/12/20 Range/Units 11:17 16:50 20:07 WBC (3.2-10.1) x10-3/uL RBC (3.90-5.90) x10(6)uL Hgb (12.9-17.7) g/dL Hct (38.3-50.1) % MCV (80.8-98.7) fL MCH (27.0-33.3) pg MCHC (28.7-35.3) g/dL RDW (12.4-15.0) % Plt Count (117-477) x10(3)uL MPV (6.7-11.0) fL Neut % (Auto) (40.3-71.8) % Lymph % (Auto) (15.8-45.3) % [place] % (Auto) (5.5-15.2) % Eos % (Auto) (0.1-6.8) % Baso % (Auto) (0.3-3.8) % Neut # (Auto) (1.7-6.9) x10-3/uL Lymph # (Auto) (0.5-4.5) x10-3/uL Jefferson # (Auto) (0.0-1.2) x10-3/uL Eos # (Auto) (0.0-0.6) x10-3/uL Baso # (Auto) (0.0-0.3) x10-3/uL Sodium (135-145) mmol/L Potassium (3.5-5.3) mmol/L Chloride (100-110) mmol/L Carbon Dioxide (21-32) mmol/L BUN (7-18) mg/dL Creatinine (0.70-1.30) mg/dL Est Cr Clr Drug Dosing mL/min Estimated GFR (MDRD) (>60) BUN/Creatinine Ratio (9-20) Glucose (80-116) mg/dL POC Glucose 113 126 H 166 H (80-116) mg/dL Calcium (8.6-10.2) mg/dL Total Bilirubin (0.1-1.3) mg/dL AST (5-25) IU/L ALT (12-36) U/L Alkaline Phosphatase (56-112) IU/L NT-Pro-B Natriuret Pep (<=125) pg/mL Total Protein (6.0-8.0) g/dL Albumin (3.2-4.6) g/dL Globulin g/dL Albumin/Globulin Ratio 07/13/20 07/13/20 07/13/20 Range/Units 06:25 06:25 06:25 WBC 6.7 (3.2-10.1) x10-3/uL RBC 3.30 L (3.90-5.90) x10(6)uL Hgb 8.1 L (12.9-17.7) g/dL Hct 26.1 L (38.3-50.1) % MCV 79.3 L (80.8-98.7) fL MCH 24.6 L (27.0-33.3) pg MCHC 31.0 (28.7-35.3) g/dL RDW 16.3 H (12.4-15.0) % Plt Count 156 (117-477) x10(3)uL MPV 11.2 H (6.7-11.0) fL Neut % (Auto) 70.2 (40.3-71.8) % Lymph % (Auto) 17.2 (15.8-45.3) % Jefferson % (Auto) 9.2 (5.5-15.2) % Eos % (Auto) 3.1 (0.1-6.8) % Baso % (Auto) 0.3 (0.3-3.8) % Neut # (Auto) 4.7 (1.7-6.9) x10-3/uL Lymph # (Auto) 1.2 (0.5-4.5) x10-3/uL Jefferson # (Auto) 0.6 (0.0-1.2) x10-3/uL Eos # (Auto) 0.2 (0.0-0.6) x10-3/uL Baso # (Auto) 0.0 (0.0-0.3) x10-3/uL Sodium 142 (135-145) mmol/L Potassium 4.5 (3.5-5.3) mmol/L Chloride 106 (100-110) mmol/L Carbon Dioxide 27 (21-32) mmol/L BUN 59 H (7-18) mg/dL Creatinine 3.9 H* (0.70-1.30) mg/dL Est Cr Clr Drug Dosing 15.99 mL/min Estimated GFR (MDRD) 19 L (>60) BUN/Creatinine Ratio 15.1 (9-20) Glucose 99 (80-116) mg/dL POC Glucose (80-116) mg/dL Calcium 7.9 L (8.6-10.2) mg/dL Total Bilirubin 0.3 (0.1-1.3) mg/dL AST 41 H D (5-25) IU/L ALT 43 H D (12-36) U/L Alkaline Phosphatase 164 H (56-112) IU/L NT-Pro-B Natriuret Pep 8129 H* (<=125) pg/mL Total Protein 6.9 (6.0-8.0) g/dL Albumin 2.2 L (3.2-4.6) g/dL Globulin 4.7 g/dL Albumin/Globulin Ratio 0.5 Med Orders - Current: Current Medications Acetaminophen (Acetaminophen 325 Mg Tab) 650 mg PO Q4H PRN PRN Reason: Pain (Mild 1-3)/fever Ascorbic Acid (Ascorbic Acid 500 Mg Tab) 500 mg PO DAILY [facility] Last Admin: 07/10/20 10:17 Dose: 500 mg Documented by: Aspirin (Aspirin 81 Mg Tab.Ec) 81 mg PO DAILY [facility] Last Admin: 07/13/20 08:41 Dose: 81 mg Documented by: Bacitracin (Bacitracin Oint 1 Gm U/D Packet) 1 dose TOP DAILY PRN PRN Reason: left lower leg wound Calcitriol (Calcitriol 0.25 Mcg Cap *Ptom) 0.25 mcg PO DAILY [facility] Last Admin: 07/13/20 08:31 Dose: 0.25 mcg Documented by: Cholecalciferol (Cholecalciferol (Vitamin D3) 25 Mcg Tab) 50 mcg PO DAILY [facility] Last Admin: 07/10/20 10:18 Dose: 50 mcg Documented by: Clopidogrel Bisulfate (Clopidogrel 75 Mg Tab *Ptom) 75 mg PO DAILY [facility] Last Admin: 07/13/20 08:32 Dose: 75 mg Documented by: Cyanocobalamin (Cyanocobalamin (Vitamin B12) 1,000 Mcg Tab *Ptom) 1,000 mcg PO DAILY [facility] Last Admin: 07/13/20 08:31 Dose: 1,000 mcg Documented by: Enoxaparin Sodium (Enoxaparin 30 Mg/0.3 Ml Syringe) 30 mg SUBCUT Q24H [facility] Last Admin: 07/12/20 20:09 Dose: 30 mg Documented by: Ferrous Sulfate (Ferrous Sulfate 325 Mg Tab) 325 mg PO DAILY [facility] Last Admin: 07/10/20 10:17 Dose: 325 mg Documented by: Fish Oil (Fish Oil/[place]-3 Fatty Acids 1 Gm Cap) 1 gm PO DAILY [facility] Last Admin: 07/10/20 10:18 Dose: 1 gm Documented by: Furosemide (Furosemide 40 Mg/4 Ml Vial) 40 mg IVPUSH TID [facility] Insulin Glargine (Insulin Glargine,Human Rec. Analog 100 Units/Ml 3 Ml Pen) 20 units SUBCUT DAILY [facility] Last Admin: 07/13/20 08:46 Dose: 20 units Documented by: Levothyroxine Sodium (Levothyroxine 100 Mcg Tab *Ptom) 100 mcg PO ACBREAKFAST [facility] Last Admin: 07/13/20 06:32 Dose: 100 mcg Documented by: Magnesium Hydroxide (Magnesium Hydroxide 400 Mg/5 Ml Susp 30 Ml Cup) 30 ml PO Q12H PRN PRN Reason: Constipation Metolazone (Metolazone 5 Mg Tab) 5 mg PO DAILY@0730 [facility] Metolazone (Metolazone 2.5 Mg Tab) 2.5 mg PO ONETIME ONE Stop: 07/13/20 09:16 Multivitamins/Minerals/Vitamin C (Multivitamin Tab *Ptom) 1 tab PO DAILY [facility] Last Admin: 07/13/20 08:30 Dose: 1 tab Documented by: Omeprazole 20mg Caps (*Ptom) 0 each PO BID@0600,2100 [facility] Last Admin: 07/13/20 05:31 Dose: 1 each Documented by: Atorvastatin 80mg * (Ptom) 0 each PO DAILY [facility] Last Admin: 07/13/20 08:30 Dose: 1 each Documented by: Amlodipine 5mg/Benazepril 10mg * Ptom 0 each PO DAILY [facility] Last Admin: 07/13/20 08:31 Dose: 1 each Documented by: Ondansetron HCl (Ondansetron 4 Mg/2 Ml Sdv) 4 mg IV Q4H PRN PRN Reason: Nausea/Vomiting Sodium Chloride (Sodium Chloride 0.9% 10 Ml Syringe) 10 ml FLUSH ASDIRECTED PRN PRN Reason: saline lock flush Last Admin: 07/13/20 09:06 Dose: 10 ml Documented by: Tamsulosin HCl (Tamsulosin 0.4 Mg Cap.Er *Ptom) 0.4 mg PO DAILY [facility] Last Admin: 07/13/20 08:32 Dose: 0.4 mg Documented by: Zolpidem Tartrate (Zolpidem 5 Mg Tab) 5 mg PO BEDTIME PRN PRN Reason: Sleep Discontinued Medications Amlodipine Besylate (Amlodipine 5 Mg Tab) 5 mg PO DAILY [facility] Last Admin: 07/10/20 10:19 Dose: 5 mg Documented by: Atorvastatin Calcium (Atorvastatin 40 Mg Tab) 80 mg PO DAILY [facility] Last Admin: 07/10/20 10:18 Dose: 80 mg Documented by: Benazepril HCl (Benazepril 10 Mg Tab) 10 mg PO DAILY [facility] Last Admin: 07/10/20 10:19 Dose: 10 mg Documented by: Furosemide (Furosemide 40 Mg/4 Ml Vial) 40 mg IVPUSH NOW ONE Stop: 07/09/20 14:34 Last Admin: 07/09/20 15:12 Dose: 40 mg Documented by: Furosemide (Furosemide 40 Mg/4 Ml Vial) 40 mg IVPUSH BID [facility] Last Admin: 07/09/20 22:07 Dose: 40 mg Documented by: Furosemide (Furosemide 40 Mg/4 Ml Vial) 40 mg IVPUSH BIDDIURETIC [facility] Last Admin: 07/13/20 08:32 Dose: 40 mg Documented by: Furosemide (Furosemide 40 Mg/4 Ml Vial) 40 mg IVPUSH NOW ONE Stop: 07/11/20 16:29 Last Admin: 07/11/20 16:34 Dose: 40 mg Documented by: Nitroglycerin/Dextrose (Nitroglycerin 25 Mg/D5w 250 Ml) 25 mg in 250 mls @ 30 mls/hr IV TITRATE [facility]; Protocol Last Admin: 07/10/20 08:26 Dose: 50 mcg/min, 30 mls/hr Documented by: Nitroglycerin/Dextrose (Nitroglycerin 25 Mg/D5w 250 Ml) 25 mg in 250 mls @ 30 mls/hr IV TITRATE [facility]; Protocol Insulin Glargine (Insulin Glargine,Human Rec. Analog 100 Units/Ml 3 Ml Pen) 20 units SUBCUT DAILY PRN PRN Reason: Hyperglycemia Metolazone (Metolazone 2.5 Mg Tab) 2.5 mg PO DAILY@0730 [facility] Last Admin: 07/13/20 06:32 Dose: 2.5 mg Documented by: Non-Formulary Medication (Amlodipine/Benazepril [Lotrel 5-10 Mg]) 1 cap PO DAILY [facility] Non-Formulary Medication (Cinnamon Bark [Cinnamon]) 1,000 mg PO BID [facility] Last Admin: 07/10/20 16:41 Dose: Not Given Documented by: Pantoprazole Sodium (Pantoprazole 40 Mg Tab.Cr) 40 mg PO ACBREAKFAST [facility] Last Admin: 07/10/20 07:04 Dose: 40 mg Documented by: Comments:: Patient was sitting in his bed, alert, pleasantly interactive. - Exam Quality Assessment: Supplemental Oxygen, DVT Prophylaxis, Skin Breakdown General: Alert, Oriented, Cooperative HEENT: EOMI Lungs: Crackles Cardiovascular: Regular Rate, Regular Rhythm GI/Abdominal Exam: Normal Bowel Sounds Extremities: Other (Pitting edema to the inguinal creases bilaterally) Skin: Warm, Dry Neurological: No New Focal Deficit Psy/Mental Status: Alert, Normal Affect, Normal Mood - Patient Data Lab Results Last 24 hrs: Laboratory Results - last 24 hr 07/12/20 07/12/20 07/12/20 Range/Units 11:17 16:50 20:07 WBC (3.2-10.1) x10-3/uL RBC (3.90-5.90) x10(6)uL Hgb (12.9-17.7) g/dL Hct (38.3-50.1) % MCV (80.8-98.7) fL MCH (27.0-33.3) pg MCHC (28.7-35.3) g/dL RDW (12.4-15.0) % Plt Count (117-477) x10(3)uL MPV (6.7-11.0) fL Neut % (Auto) (40.3-71.8) % Lymph % (Auto) (15.8-45.3) % [place] % (Auto) (5.5-15.2) % Eos % (Auto) (0.1-6.8) % Baso % (Auto) (0.3-3.8) % Neut # (Auto) (1.7-6.9) x10-3/uL Lymph # (Auto) (0.5-4.5) x10-3/uL [place] # (Auto) (0.0-1.2) x10-3/uL Eos # (Auto) (0.0-0.6) x10-3/uL Baso # (Auto) (0.0-0.3) x10-3/uL Sodium (135-145) mmol/L Potassium (3.5-5.3) mmol/L Chloride (100-110) mmol/L Carbon Dioxide (21-32) mmol/L BUN (7-18) mg/dL Creatinine (0.70-1.30) mg/dL Est Cr Clr Drug Dosing mL/min Estimated GFR (MDRD) (>60) BUN/Creatinine Ratio (9-20) Glucose (80-116) mg/dL POC Glucose 113 126 H 166 H (80-116) mg/dL Calcium (8.6-10.2) mg/dL Total Bilirubin (0.1-1.3) mg/dL AST (5-25) IU/L ALT (12-36) U/L Alkaline Phosphatase (56-112) IU/L NT-Pro-B Natriuret Pep (<=125) pg/mL Total Protein (6.0-8.0) g/dL Albumin (3.2-4.6) g/dL Globulin g/dL Albumin/Globulin Ratio 07/13/20 07/13/20 07/13/20 Range/Units 06:25 06:25 06:25 WBC 6.7 (3.2-10.1) x10-3/uL RBC 3.30 L (3.90-5.90) x10(6)uL Hgb 8.1 L (12.9-17.7) g/dL Hct 26.1 L (38.3-50.1) % MCV 79.3 L (80.8-98.7) fL MCH 24.6 L (27.0-33.3) pg MCHC 31.0 (28.7-35.3) g/dL RDW 16.3 H (12.4-15.0) % Plt Count 156 (117-477) x10(3)uL MPV 11.2 H (6.7-11.0) fL Neut % (Auto) 70.2 (40.3-71.8) % Lymph % (Auto) 17.2 (15.8-45.3) % Jefferson % (Auto) 9.2 (5.5-15.2) % Eos % (Auto) 3.1 (0.1-6.8) % Baso % (Auto) 0.3 (0.3-3.8) % Neut # (Auto) 4.7 (1.7-6.9) x10-3/uL Lymph # (Auto) 1.2 (0.5-4.5) x10-3/uL [place] # (Auto) 0.6 (0.0-1.2) x10-3/uL Eos # (Auto) 0.2 (0.0-0.6) x10-3/uL Baso # (Auto) 0.0 (0.0-0.3) x10-3/uL Sodium 142 (135-145) mmol/L Potassium 4.5 (3.5-5.3) mmol/L Chloride 106 (100-110) mmol/L Carbon Dioxide 27 (21-32) mmol/L BUN 59 H (7-18) mg/dL Creatinine 3.9 H* (0.70-1.30) mg/dL Est Cr Clr Drug Dosing 15.99 mL/min Estimated GFR (MDRD) 19 L (>60) BUN/Creatinine Ratio 15.1 (9-20) Glucose 99 (80-116) mg/dL POC Glucose (80-116) mg/dL Calcium 7.9 L (8.6-10.2) mg/dL Total Bilirubin 0.3 (0.1-1.3) mg/dL AST 41 H D (5-25) IU/L ALT 43 H D (12-36) U/L Alkaline Phosphatase 164 H (56-112) IU/L NT-Pro-B Natriuret Pep 8129 H* (<=125) pg/mL Total Protein 6.9 (6.0-8.0) g/dL Albumin 2.2 L (3.2-4.6) g/dL Globulin 4.7 g/dL Albumin/Globulin Ratio 0.5 Result Diagrams: 07/13/20 06:25 07/13/20 06:25 Sepsis Event Note - Evaluation Sepsis Screening Result: No Definite Risk - Focused Exam Vital Signs: Vital Signs Temp Pulse Resp BP Pulse Ox Pulse Ox 07/13/20 05:45 36.4 C 68 20 134/68 100 07/13/20 00:00 36.5 C 73 24 H 124/61 93 L 93 L - Problem List & Annotations (1) Acute exacerbation of CHF (congestive heart failure) SNOMED Code(s): 701761057, 70078115835004 Code(s): I50.9 - HEART FAILURE, UNSPECIFIED Status: Acute Current Visit: Yes (2) Acute on chronic renal insufficiency SNOMED Code(s): 040636779 Code(s): N28.9 - DISORDER OF KIDNEY AND URETER, UNSPECIFIED; N18.9 - CHRONIC KIDNEY DISEASE, UNSPECIFIED Status: Acute Current Visit: Yes (3) Acute pulmonary edema SNOMED Code(s): 97877133 Code(s): J81.0 - ACUTE PULMONARY EDEMA Status: Acute Current Visit: Yes (4) Anasarca SNOMED Code(s): 500643908, 158057061 Code(s): R60.1 - GENERALIZED EDEMA Status: Acute Current Visit: Yes Annotation/Comment:: Improved. Continue diuresis at home with Lasix and Zaroxolyn as above. (5) Diabetes type 2, controlled SNOMED Code(s): 44445143, 047760853 Code(s): E11.9 - TYPE 2 DIABETES MELLITUS WITHOUT COMPLICATIONS Status: Chronic Current Visit: Yes Qualifiers: Diabetes mellitus long-term insulin use: with termite exterminator helper use Diabetes thanh litus complication status: with circulatory complication (6) CKD (chronic kidney disease) stage 4, GFR 15-29 ml/min SNOMED Code(s): 667630902 Code(s): N18.4 - CHRONIC KIDNEY DISEASE, STAGE 4 (SEVERE) Status: Chronic Current Visit: Yes (7) Palliative care encounter SNOMED Code(s): 973939613, 354501335 Code(s): Z51.5 - ENCOUNTER FOR PALLIATIVE CARE Status: Acute Current Visit: No (8) SOBOE (shortness of breath on exertion) SNOMED Code(s): 34983904 Code(s): R06.02 - SHORTNESS OF BREATH Status: Acute Current Visit: No Annotation/Comment:: Obtain Echo,BNP.Start Lasix IV. (9) Anemia SNOMED Code(s): 324340960 Code(s): D64.9 - ANEMIA, UNSPECIFIED Status: Chronic Current Visit: No Qualifiers: Anemia type: due to chronic kidney disease Chronic kidney disease stage: stage 4 (severe) Qualified Code(s): N18.4 - Chronic kidney disease, stage 4 (severe); D63.1 - Anemia in chronic kidney disease (10) HTN (hypertension) SNOMED Code(s): 49644303 Code(s): I10 - ESSENTIAL (PRIMARY) HYPERTENSION Status: Chronic Current Visit: No Qualifiers: Hypertension type: essential hypertension Qualified Code(s): I10 - Essential (primary) hypertension Annotation/Comment:: Ran high into the 160s during hospitalization. After diuresis, reassess. (11) Hx of BKA Status: Chronic Current Visit: No Qualifiers: Laterality: right Qualified Code(s): Z89.511 - Acquired absence of right leg below knee (12) Hypothyroid SNOMED Code(s): 96506655 Code(s): E03.9 - HYPOTHYROIDISM, UNSPECIFIED Status: Chronic Current Visit: No Qualifiers: Hypothyroidism type: unspecified Qualified Code(s): E03.9 - Hypothyroidism, unspecified Annotation/Comment:: Recheck TSH,continue home meds (13) Obesity SNOMED Code(s): 620005417, 806631180 Code(s): E66.9 - OBESITY, UNSPECIFIED Status: Chronic Current Visit: No Qualifiers: Obesity type: due to excess calories - Problem List Review Problem List Initiated/Reviewed/Updated: Yes - My Orders Last 24 Hours: My Active Orders 07/12/20 Lunch Fluid Restriction [DIET] Sodium Restricted Diet [DIET] 07/13/20 08:40 Sodium Chloride 0.9% [Saline Flush] 10 ml FLUSH ASDIRECTED PRN 07/13/20 09:09 Admission Status [Patient Status] [ADT] Routine 07/13/20 09:15 metOLazone [Zaroxolyn] 2.5 mg PO ONETIME ONE metOLazone [Zaroxolyn] 5 mg PO DAILY 07/13/20 14:00 Furosemide [Lasix] 40 mg IVPUSH TID - Plan Plan:: Continue diuresis, increase metolazone to 5 mg daily and IV Lasix to 40 mg 3 times daily. Strict I/O,with daily weights -patient had a -2 L fluid deficit over the last 24 hours. Diet with salt and fluid restrictions, no salt added, 1200 mL fluid restriction daily. Comprehensive metabolic panel tomorrow to monitor renal function and liver function -creatinine and GFR are essentially stable, we will wait 1 day to to repeat CMP. Note that AST/ALT mildly elevated likely secondary to fatty liver disease. Consider discharge with torsemide and continue metolazone. Continue enoxaparin for DVT prophylaxis Disposition: Patient had mild improvement in anasarca overnight but continues to have severe scrotal swelling with discomfort and pitting edema to the inguinal creases bilaterally along with dyspnea on exertion. Patient is still unsteady on his feet and unable to stand for more than 1-2 minutes without shortness of breath. Patient was moved to inpatient status. We will continue diuresis, fluid restriction, salt restriction as above. Patient will require continue IV Lasix secondary to continued abdominal edema. Discharge likely 2 days.
[2020-07-13] MEDS: Enoxaparin 30 MG/0.3 ML Syringe SUBCUT SCH (21:21)
[2020-07-13] MEDS: Pantoprazole 40 MG Tab.CR PO SCH (21:23)
[2020-07-14] MEDS: Pantoprazole 40 MG Tab.CR PO SCH ×2 (05:28→20:41)
[2020-07-14] MEDS: Metolazone 5 MG Tab PO SCH (07:41)
[2020-07-14] MEDS: Levothyroxine 100 MCG Tab PO SCH (07:41)
[2020-07-14] MEDS: Ferrous Sulfate 325 MG Tab PO SCH (08:56)
[2020-07-14] MEDS: Furosemide 40 MG/4 ML VIAL IVPUSH SCH ×3 (08:56→20:42)
[2020-07-14] MEDS: Fish Oil/Omega-3 Fatty Acids 1 Gm Cap PO SCH (08:59)
[2020-07-14] MEDS: Tamsulosin 0.4 MG Cap.ER PO SCH (09:00)
[2020-07-14] MEDS: atorvaSTATin 40 MG Tab PO SCH (09:00)
[2020-07-14] MEDS: Aspirin 81 MG Tab.EC PO SCH (09:00)
[2020-07-14] MEDS: amLODIPine 5 MG Tab PO SCH (09:01)
[2020-07-14] MEDS: Benazepril 10 MG Tab PO SCH (09:01)
[2020-07-14] MEDS: Clopidogrel 75 MG Tab PO SCH (09:02)
[2020-07-14] MEDS: Multivitamin Tab PO SCH (09:02)
[2020-07-14] MEDS: Calcitriol 0.25 MCG Cap PO SCH (09:02)
[2020-07-14] MEDS: Ascorbic Acid 500 MG Tab PO SCH (09:03)
[2020-07-14] MEDS: Cyanocobalamin (Vitamin B12) 1,000 MCG Tab PO SCH (09:03)
[2020-07-14] MEDS: Cholecalciferol (Vitamin D3) 25 MCG Tab PO SCH (09:03)
[2020-07-14] MEDS: Insulin Glargine,Human Rec. Analog 100 Units/ML 3 ML Pen SUBCUT SCH (09:04)
--- NOTE | 2020-07-14 09:14 | PCM.PN ---
- General Info Date of Service: 07/14/20 Admission Dx/Problem (Free Text): Admission Diagnosis/Problem Admission Diagnosis/Problem Heart failure Subjective Update: Patient states that he feels better today and that his scrotum feels a little less swollen but is still taut and painful. He states that his breathing seems to be a little better but he still has significant shortness of breath with only minimal activity such as going to the restroom Functional Status: Reports: Pain Controlled, Tolerating Diet, Ambulating, Urinating - Review of Systems General: Reports: Weakness, Fatigue HEENT: Reports: No Symptoms Pulmonary: Reports: No Symptoms Cardiovascular: Reports: No Symptoms Gastrointestinal: Reports: No Symptoms Genitourinary: Reports: No Symptoms Musculoskeletal: Reports: No Symptoms Skin: Reports: Other (Lesion left lower distal medial calf) Neurological: Reports: No Symptoms Psychiatric: Reports: No Symptoms - Patient Data Vitals - Most Recent: Last Vital Signs Temp 36.6 C 07/14/20 07:46 Pulse 80 07/14/20 07:46 Resp 20 07/14/20 07:46 BP 142/74 H 07/14/20 09:01 Pulse Ox 90 L 07/14/20 07:46 Weight - Most Recent: 130.181 kg I&O - Last 24 Hours: Intake & Output 07/13/20 07/14/20 07/14/20 22:59 06:59 14:59 Intake Total 200 Output Total 1700 1000 Balance -1500 -1000 Lab Results Last 24 Hours: Laboratory Results - last 24 hr 07/13/20 07/14/20 07/14/20 Range/Units 17:23 06:45 06:45 WBC 6.7 (3.2-10.1) x10-3/uL RBC 3.32 L (3.90-5.90) x10(6)uL Hgb 8.1 L (12.9-17.7) g/dL Hct 26.4 L (38.3-50.1) % MCV 79.4 L (80.8-98.7) fL MCH 24.3 L (27.0-33.3) pg MCHC 30.6 (28.7-35.3) g/dL RDW 16.4 H (12.4-15.0) % Plt Count 144 (117-477) x10(3)uL MPV 10.6 (6.7-11.0) fL Neut % (Auto) 69.3 (40.3-71.8) % Lymph % (Auto) 17.5 (15.8-45.3) % [place] % (Auto) 9.6 (5.5-15.2) % Eos % (Auto) 3.3 (0.1-6.8) % Baso % (Auto) 0.3 (0.3-3.8) % Neut # (Auto) 4.7 (1.7-6.9) x10-3/uL Lymph # (Auto) 1.2 (0.5-4.5) x10-3/uL [place] # (Auto) 0.6 (0.0-1.2) x10-3/uL Eos # (Auto) 0.2 (0.0-0.6) x10-3/uL Baso # (Auto) 0.0 (0.0-0.3) x10-3/uL POC Glucose 123 H (80-116) mg/dL NT-Pro-B Natriuret Pep 6965 H* (<=125) pg/mL 07/14/20 Range/Units 07:50 WBC (3.2-10.1) x10-3/uL RBC (3.90-5.90) x10(6)uL Hgb (12.9-17.7) g/dL Hct (38.3-50.1) % MCV (80.8-98.7) fL MCH (27.0-33.3) pg MCHC (28.7-35.3) g/dL RDW (12.4-15.0) % Plt Count (117-477) x10(3)uL MPV (6.7-11.0) fL Neut % (Auto) (40.3-71.8) % Lymph % (Auto) (15.8-45.3) % [place] % (Auto) (5.5-15.2) % Eos % (Auto) (0.1-6.8) % Baso % (Auto) (0.3-3.8) % Neut # (Auto) (1.7-6.9) x10-3/uL Lymph # (Auto) (0.5-4.5) x10-3/uL [place] # (Auto) (0.0-1.2) x10-3/uL Eos # (Auto) (0.0-0.6) x10-3/uL Baso # (Auto) (0.0-0.3) x10-3/uL POC Glucose 130 H (80-116) mg/dL NT-Pro-B Natriuret Pep (<=125) pg/mL Med Orders - Current: Current Medications Acetaminophen (Acetaminophen 325 Mg Tab) 650 mg PO Q4H PRN PRN Reason: Pain (Mild 1-3)/fever Amlodipine Besylate (Amlodipine 5 Mg Tab) 5 mg PO DAILY [facility] Last Admin: 07/14/20 09:01 Dose: 5 mg Documented by: Ascorbic Acid (Ascorbic Acid 500 Mg Tab) 500 mg PO DAILY [facility] Last Admin: 07/14/20 09:03 Dose: 500 mg Documented by: Aspirin (Aspirin 81 Mg Tab.Ec) 81 mg PO DAILY [facility] Last Admin: 07/14/20 09:00 Dose: 81 mg Documented by: Atorvastatin Calcium (Atorvastatin 40 Mg Tab) 80 mg PO DAILY [facility] Last Admin: 07/14/20 09:00 Dose: 80 mg Documented by: Bacitracin (Bacitracin Oint 1 Gm U/D Packet) 1 dose TOP DAILY PRN PRN Reason: left lower leg wound Benazepril HCl (Benazepril 10 Mg Tab) 10 mg PO DAILY [facility] Last Admin: 07/14/20 09:01 Dose: 10 mg Documented by: Calcitriol (Calcitriol 0.25 Mcg Cap) 0.25 mcg PO DAILY [facility] Last Admin: 07/14/20 09:02 Dose: 0.25 mcg Documented by: Cholecalciferol (Cholecalciferol (Vitamin D3) 25 Mcg Tab) 50 mcg PO DAILY [facility] Last Admin: 07/14/20 09:03 Dose: 50 mcg Documented by: Clopidogrel Bisulfate (Clopidogrel 75 Mg Tab) 75 mg PO DAILY [facility] Last Admin: 07/14/20 09:02 Dose: 75 mg Documented by: Cyanocobalamin (Cyanocobalamin (Vitamin B12) 1,000 Mcg Tab) 1,000 mcg PO DAILY [facility] Last Admin: 07/14/20 09:03 Dose: 1,000 mcg Documented by: Enoxaparin Sodium (Enoxaparin 30 Mg/0.3 Ml Syringe) 30 mg SUBCUT Q24H [facility] Last Admin: 07/13/20 21:21 Dose: 30 mg Documented by: Ferrous Sulfate (Ferrous Sulfate 325 Mg Tab) 325 mg PO DAILY [facility] Last Admin: 07/14/20 08:56 Dose: 325 mg Documented by: Fish Oil (Fish Oil/Cardwell-3 Fatty Acids 1 Gm Cap) 1 gm PO DAILY [facility] Last Admin: 07/14/20 08:59 Dose: 1 gm Documented by: Furosemide (Furosemide 40 Mg/4 Ml Vial) 40 mg IVPUSH TID [facility] Last Admin: 07/14/20 08:56 Dose: 40 mg Documented by: Insulin Glargine (Insulin Glargine,Human Rec. Analog 100 Units/Ml 3 Ml Pen) 20 units SUBCUT DAILY [facility] Last Admin: 07/13/20 08:46 Dose: 20 units Documented by: Levothyroxine Sodium (Levothyroxine 100 Mcg Tab) 100 mcg PO ACBREAKFAST [facility] Last Admin: 07/14/20 07:41 Dose: 100 mcg Documented by: Magnesium Hydroxide (Magnesium Hydroxide 400 Mg/5 Ml Susp 30 Ml Cup) 30 ml PO Q12H PRN PRN Reason: Constipation Metolazone (Metolazone 5 Mg Tab) 5 mg PO DAILY@0730 [facility] Last Admin: 07/14/20 07:41 Dose: 5 mg Documented by: Multivitamins/Minerals/Vitamin C (Multivitamin Tab) 1 tab PO DAILY [facility] Last Admin: 07/14/20 09:02 Dose: 1 tab Documented by: Ondansetron HCl (Ondansetron 4 Mg/2 Ml Sdv) 4 mg IV Q4H PRN PRN Reason: Nausea/Vomiting Pantoprazole Sodium (Pantoprazole 40 Mg Tab.Cr) 40 mg PO BID@0600,2100 [facility] Last Admin: 07/14/20 05:28 Dose: 40 mg Documented by: Sodium Chloride (Sodium Chloride 0.9% 10 Ml Syringe) 10 ml FLUSH ASDIRECTED PRN PRN Reason: saline lock flush Last Admin: 07/13/20 21:30 Dose: 10 ml Documented by: Tamsulosin HCl (Tamsulosin 0.4 Mg Cap.Er) 0.4 mg PO DAILY [facility] Last Admin: 07/14/20 09:00 Dose: 0.4 mg Documented by: Zolpidem Tartrate (Zolpidem 5 Mg Tab) 5 mg PO BEDTIME PRN PRN Reason: Sleep Discontinued Medications Amlodipine Besylate (Amlodipine 5 Mg Tab) 5 mg PO DAILY [facility] Last Admin: 07/10/20 10:19 Dose: 5 mg Documented by: Atorvastatin Calcium (Atorvastatin 40 Mg Tab) 80 mg PO DAILY [facility] Last Admin: 07/10/20 10:18 Dose: 80 mg Documented by: Benazepril HCl (Benazepril 10 Mg Tab) 10 mg PO DAILY [facility] Last Admin: 07/10/20 10:19 Dose: 10 mg Documented by: Furosemide (Furosemide 40 Mg/4 Ml Vial) 40 mg IVPUSH NOW ONE Stop: 07/09/20 14:34 Last Admin: 07/09/20 15:12 Dose: 40 mg Documented by: Furosemide (Furosemide 40 Mg/4 Ml Vial) 40 mg IVPUSH BID [facility] Last Admin: 07/09/20 22:07 Dose: 40 mg Documented by: Furosemide (Furosemide 40 Mg/4 Ml Vial) 40 mg IVPUSH BIDDIURETIC [facility] Last Admin: 07/13/20 08:32 Dose: 40 mg Documented by: Furosemide (Furosemide 40 Mg/4 Ml Vial) 40 mg IVPUSH NOW ONE Stop: 07/11/20 16:29 Last Admin: 07/11/20 16:34 Dose: 40 mg Documented by: Nitroglycerin/Dextrose (Nitroglycerin 25 Mg/D5w 250 Ml) 25 mg in 250 mls @ 30 mls/hr IV TITRATE [facility]; Protocol Last Admin: 07/10/20 08:26 Dose: 50 mcg/min, 30 mls/hr Documented by: Nitroglycerin/Dextrose (Nitroglycerin 25 Mg/D5w 250 Ml) 25 mg in 250 mls @ 30 mls/hr IV TITRATE [facility]; Protocol Insulin Glargine (Insulin Glargine,Human Rec. Analog 100 Units/Ml 3 Ml Pen) 20 units SUBCUT DAILY PRN PRN Reason: Hyperglycemia Metolazone (Metolazone 2.5 Mg Tab) 2.5 mg PO DAILY@0730 [facility] Last Admin: 07/13/20 06:32 Dose: 2.5 mg Documented by: Metolazone (Metolazone 2.5 Mg Tab) 2.5 mg PO ONETIME ONE Stop: 07/13/20 09:16 Last Admin: 07/13/20 09:49 Dose: 2.5 mg Documented by: Non-Formulary Medication (Amlodipine/Benazepril [Lotrel 5-10 Mg]) 1 cap PO D AILY [facility] Non-Formulary Medication (Cinnamon Bark [Cinnamon]) 1,000 mg PO BID [facility] Last Admin: 07/10/20 16:41 Dose: Not Given Documented by: Omeprazole 20mg Caps (*Ptom) 0 each PO BID@0600,2100 [facility] Last Admin: 07/13/20 05:31 Dose: 1 each Documented by: Atorvastatin 80mg * (Ptom) 0 each PO DAILY [facility] Last Admin: 07/13/20 08:30 Dose: 1 each Documented by: Amlodipine 5mg/Benazepril 10mg * Ptom 0 each PO DAILY [facility] Last Admin: 07/13/20 08:31 Dose: 1 each Documented by: Pantoprazole Sodium (Pantoprazole 40 Mg Tab.Cr) 40 mg PO ACBREAKFAST [facility] Last Admin: 07/10/20 07:04 Dose: 40 mg Documented by: Comments:: Patient was sleeping when I entered the room, easily arousable, alert, interactive, pleasant. Visual inspection shows that edema has improved. The lower abdomen no longer has pitting edema and the left proximal one third of the thigh still has edema but no pitting edema, the right thigh still has pitting edema to the inguinal crease. The scrotum is still significantly swollen but is less taut today - Exam Quality Assessment: Supplemental Oxygen, DVT Prophylaxis, Skin Breakdown General: Alert, Oriented, Cooperative, No Acute Distress HEENT: EOMI Lungs: Decreased Breath Sounds, Crackles Cardiovascular: Regular Rate, Irregular Rhythm GI/Abdominal Exam: Normal Bowel Sounds Extremities: Other (Right leg has pitting edema to the inguinal crease, left leg has pitting edema except for the proximal one third of the thigh) Peripheral Pulses: 2+: Radial (L), Radial (R) Skin: Warm, Dry, Other (Stasis dermatitis left lower extremity and right thigh) Wound/Incisions: No Drainage, Other (Noted the patient has developed a few water blisters on his left lower leg with no drainage at this time) Neurological: No New Focal Deficit Psy/Mental Status: Alert, Normal Affect, Normal Mood - Patient Data Lab Results Last 24 hrs: Laboratory Results - last 24 hr 07/13/20 07/14/20 07/14/20 Range/Units 17:23 06:45 06:45 WBC 6.7 (3.2-10.1) x10-3/uL RBC 3.32 L (3.90-5.90) x10(6)uL Hgb 8.1 L (12.9-17.7) g/dL Hct 26.4 L (38.3-50.1) % MCV 79.4 L (80.8-98.7) fL MCH 24.3 L (27.0-33.3) pg MCHC 30.6 (28.7-35.3) g/dL RDW 16.4 H (12.4-15.0) % Plt Count 144 (117-477) x10(3)uL MPV 10.6 (6.7-11.0) fL Neut % (Auto) 69.3 (40.3-71.8) % Lymph % (Auto) 17.5 (15.8-45.3) % [place] % (Auto) 9.6 (5.5-15.2) % Eos % (Auto) 3.3 (0.1-6.8) % Baso % (Auto) 0.3 (0.3-3.8) % Neut # (Auto) 4.7 (1.7-6.9) x10-3/uL Lymph # (Auto) 1.2 (0.5-4.5) x10-3/uL [place] # (Auto) 0.6 (0.0-1.2) x10-3/uL Eos # (Auto) 0.2 (0.0-0.6) x10-3/uL Baso # (Auto) 0.0 (0.0-0.3) x10-3/uL POC Glucose 123 H (80-116) mg/dL NT-Pro-B Natriuret Pep 6965 H* (<=125) pg/mL 07/14/20 Range/Units 07:50 WBC (3.2-10.1) x10-3/uL RBC (3.90-5.90) x10(6)uL Hgb (12.9-17.7) g/dL Hct (38.3-50.1) % MCV (80.8-98.7) fL MCH (27.0-33.3) pg MCHC (28.7-35.3) g/dL RDW (12.4-15.0) % Plt Count (117-477) x10(3)uL MPV (6.7-11.0) fL Neut % (Auto) (40.3-71.8) % Lymph % (Auto) (15.8-45.3) % [place] % (Auto) (5.5-15.2) % Eos % (Auto) (0.1-6.8) % Baso % (Auto) (0.3-3.8) % Neut # (Auto) (1.7-6.9) x10-3/uL Lymph # (Auto) (0.5-4.5) x10-3/uL [place] # (Auto) (0.0-1.2) x10-3/uL Eos # (Auto) (0.0-0.6) x10-3/uL Baso # (Auto) (0.0-0.3) x10-3/uL POC Glucose 130 H (80-116) mg/dL NT-Pro-B Natriuret Pep (<=125) pg/mL Result Diagrams: 07/14/20 06:45 07/13/20 06:25 Sepsis Event Note - Evaluation Sepsis Screening Result: No Definite Risk - Focused Exam Vital Signs: Vital Signs Temp Pulse Resp BP BP Pulse Ox 07/14/20 09:01 142/74 H 07/14/20 07:46 36.6 C 80 20 142/74 H 90 L 07/14/20 03:42 36.4 C 78 28 H 150/80 H 92 L 07/14/20 00:30 24 H - Problem List & Annotations (1) Acute exacerbation of CHF (congestive heart failure) SNOMED Code(s): 878676520, 01514721992143 Code(s): I50.9 - HEART FAILURE, UNSPECIFIED Status: Acute Current Visit: Yes (2) Acute on chronic renal insufficiency SNOMED Code(s): 948585431 Code(s): N28.9 - DISORDER OF KIDNEY AND URETER, UNSPECIFIED; N18.9 - CHRONIC KIDNEY DISEASE, UNSPECIFIED Status: Acute Current Visit: Yes (3) Acute pulmonary edema SNOMED Code(s): 75360660 Code(s): J81.0 - ACUTE PULMONARY EDEMA Status: Acute Current Visit: Yes (4) Anasarca SNOMED Code(s): 244810063, 219314438 Code(s): R60.1 - GENERALIZED EDEMA Status: Acute Current Visit: Yes Annotation/Comment:: Improved. Continue diuresis at home with Lasix and Zaroxolyn as above. (5) Diabetes type 2, controlled SNOMED Code(s): 82063097, 272056784 Code(s): E11.9 - TYPE 2 DIABETES MELLITUS WITHOUT COMPLICATIONS Status: Chronic Current Visit: Yes Qualifiers: Diabetes mellitus superintendent container terminal insulin use: with superintendent container terminal use Diabetes mellitus complication status: with circulatory complication (6) CKD (chronic kidney disease) stage 4, GFR 15-29 ml/min SNOMED Code(s): 376530771 Code(s): N18.4 - CHRONIC KIDNEY DISEASE, STAGE 4 (SEVERE) Status: Chronic Current Visit: Yes (7) Palliative care encounter SNOMED Code(s): 393016913, 747477186 Code(s): Z51.5 - ENCOUNTER FOR PALLIATIVE CARE Status: Acute Current Visit: No (8) SOBOE (shortness of breath on exertion) SNOMED Code(s): 88484951 Code(s): R06.02 - SHORTNESS OF BREATH Status: Acute Current Visit: No Annotation/Comment:: Obtain Echo,BNP.Start Lasix IV. (9) Anemia SNOMED Code(s): 718923789 Code(s): D64.9 - ANEMIA, UNSPECIFIED Status: Chronic Current Visit: No Qualifiers: Anemia type: due to chronic kidney disease Chronic kidney disease stage: stage 4 (severe) Qualified Code(s): N18.4 - Chronic kidney disease, stage 4 (severe); D63.1 - Anemia in chronic kidney disease (10) HTN (hypertension) SNOMED Code(s): 72833636 Code(s): I10 - ESSENTIAL (PRIMARY) HYPERTENSION Status: Chronic Current Visit: No Qualifiers: Hypertension type: essential hypertension Qualified Code(s): I10 - Essential (primary) hypertension Annotation/Comment:: Ran high into the 160s during hospitalization. After diuresis, reassess. (11) Hx of BKA Status: Chronic Current Visit: No Qualifiers: Laterality: right Qualified Code(s): Z89.511 - Acquired absence of right leg below knee (12) Hypothyroid SNOMED Code(s): 78921697 Code(s): E03.9 - HYPOTHYROIDISM, UNSPECIFIED Status: Chronic Current Visit: No Qualifiers: Hypothyroidism type: unspecified Qualified Code(s): E03.9 - Hypothyroidism, unspecified Annotation/Comment:: Recheck TSH,continue home meds (13) Obesity SNOMED Code(s): 449045762, 626328973 Code(s): E66.9 - OBESITY, UNSPECIFIED Status: Chronic Current Visit: No Qualifiers: Obesity type: due to excess calories - Problem List Review Problem List Initiated/Reviewed/Updated: Yes - My Orders Last 24 Hours: My Active Orders 07/13/20 08:40 Sodium Chloride 0.9% [Saline Flush] 10 ml FLUSH ASDIRECTED PRN 07/13/20 09:09 Admission Status [Patient Status] [ADT] Routine 07/13/20 14:00 Furosemide [Lasix] 40 mg IVPUSH TID 07/13/20 17:00 Accu Check [Blood Glucose Check, Bedside] [RC] BIDMEALS 07/14/20 07:30 metOLazone [Zaroxolyn] 5 mg PO DAILY@0730 07/14/20 09:00 Benazepril [Lotensin] 10 mg PO DAILY 07/15/20 BASIC METABOLIC PANEL,BMP [CHEM] Routine - Plan Plan:: Continue diuresis - metolazone to 5 mg daily and IV Lasix 40 mg 3 times daily. Strict I/O,with daily weights -patient had a -2.5 L fluid deficit over the last 24 hours. Diet with salt and fluid restrictions, no salt added, 1200 mL fluid restriction daily. Consider discharge with torsemide and continue metolazone. Continue enoxaparin for DVT prophylaxis Disposition: Patient edema is improving. Patient has developed some water blisters on his left lower leg. He will have a bath this morning and then we will apply an [place] boot which will hopefully help with his stasis dermatitis, lower extremity venous ulcers, and edema. Patient will be given today IV diuresis and we will switch to oral diuresis tomorrow. If the patient continues to improve on oral diuresis and has significant relief of scrotal swelling and pain he should be discharged on Monday. Note that the patient oxygen saturation decreases significantly into the low 80s just after ambulating to the bathroom. Consider home oxygen therapy at discharge.
[2020-07-14] MEDS: Sodium Chloride 0.9% 10 ML Syringe FLUSH PRN ×2 (14:13→20:48)
[2020-07-14] MEDS: Enoxaparin 30 MG/0.3 ML Syringe SUBCUT SCH (20:41)
[2020-07-15] MEDS: Pantoprazole 40 MG Tab.CR PO SCH ×2 (06:01→21:19)
[2020-07-15] MEDS: Levothyroxine 100 MCG Tab PO SCH (06:32)
[2020-07-15] MEDS: Metolazone 5 MG Tab PO SCH (06:32)
--- NOTE | 2020-07-15 07:43 | PCM.PN ---
- General Info Date of Service: 07/15/20 Admission Dx/Problem (Free Text): Admission Diagnosis/Problem Admission Diagnosis/Problem Heart failure Subjective Update: Patient states that he continues to feel better - Review of Systems General: Reports: Weakness, Fatigue HEENT: Reports: No Symptoms Pulmonary: Reports: No Symptoms Cardiovascular: Reports: No Symptoms Gastrointestinal: Reports: No Symptoms Genitourinary: Reports: Other (Scrotal pain) Musculoskeletal: Reports: No Symptoms Skin: Reports: Other (Lower extremity stasis dermatitis with minor skin breakdown) Neurological: Reports: No Symptoms Psychiatric: Reports: No Symptoms - Patient Data Vitals - Most Recent: Last Vital Signs Temp 36.6 C 07/15/20 04:00 Pulse 76 07/15/20 04:00 Resp 24 H 07/15/20 04:00 BP 145/78 H 07/15/20 04:00 Pulse Ox 92 L 07/15/20 04:00 Weight - Most Recent: 126.184 kg I&O - Last 24 Hours: Intake & Output 07/14/20 07/15/20 07/15/20 22:59 06:59 14:59 Intake Total 400 Output Total 1345 1750 Balance -945 -1750 Lab Results Last 24 Hours: Laboratory Results - last 24 hr 07/14/20 07/14/20 07/14/20 Range/Units 06:45 07:50 17:28 Sodium (135-145) mmol/L Potassium (3.5-5.3) mmol/L Chloride (100-110) mmol/L Carbon Dioxide (21-32) mmol/L BUN (7-18) mg/dL Creatinine (0.70-1.30) mg/dL Est Cr Clr Drug Dosing mL/min Estimated GFR (MDRD) (>60) BUN/Creatinine Ratio (9-20) Glucose (80-116) mg/dL POC Glucose 130 H 124 H (80-116) mg/dL Calcium (8.6-10.2) mg/dL NT-Pro-B Natriuret Pep 6965 H* (<=125) pg/mL 07/15/20 Range/Units 07:18 Sodium 142 (135-145) mmol/L Potassium 4.4 (3.5-5.3) mmol/L Chloride 105 (100-110) mmol/L Carbon Dioxide 31 (21-32) mmol/L BUN 63 H (7-18) mg/dL Creatinine 3.7 H* (0.70-1.30) mg/dL Est Cr Clr Drug Dosing 16.85 mL/min Estimated GFR (MDRD) 20 L (>60) BUN/Creatinine Ratio 17.0 (9-20) Glucose 118 H (80-116) mg/dL POC Glucose (80-116) mg/dL Calcium 8.1 L (8.6-10.2) mg/dL NT-Pro-B Natriuret Pep (<=125) pg/mL Med Orders - Current: Current Medications Acetaminophen (Acetaminophen 325 Mg Tab) 650 mg PO Q4H PRN PRN Reason: Pain (Mild 1-3)/fever Amlodipine Besylate (Amlodipine 5 Mg Tab) 5 mg PO DAILY [facility] Last Admin: 07/14/20 09:01 Dose: 5 mg Documented by: Ascorbic Acid (Ascorbic Acid 500 Mg Tab) 500 mg PO DAILY [facility] Last Admin: 07/14/20 09:03 Dose: 500 mg Documented by: Aspirin (Aspirin 81 Mg Tab.Ec) 81 mg PO DAILY [facility] Last Admin: 07/14/20 09:00 Dose: 81 mg Documented by: Atorvastatin Calcium (Atorvastatin 40 Mg Tab) 80 mg PO DAILY [facility] Last Admin: 07/14/20 09:00 Dose: 80 mg Documented by: Bacitracin (Bacitracin Oint 1 Gm U/D Packet) 1 dose TOP DAILY PRN PRN Reason: left lower leg wound Benazepril HCl (Benazepril 10 Mg Tab) 10 mg PO DAILY [facility] Last Admin: 07/14/20 09:01 Dose: 10 mg Documented by: Calcitriol (Calcitriol 0.25 Mcg Cap) 0.25 mcg PO DAILY [facility] Last Admin: 07/14/20 09:02 Dose: 0.25 mcg Documented by: Cholecalciferol (Cholecalciferol (Vitamin D3) 25 Mcg Tab) 50 mcg PO DAILY [facility] Last Admin: 07/14/20 09:03 Dose: 50 mcg Documented by: Clopidogrel Bisulfate (Clopidogrel 75 Mg Tab) 75 mg PO DAILY [facility] Last Admin: 07/14/20 09:02 Dose: 75 mg Documented by: Cyanocobalamin (Cyanocobalamin (Vitamin B12) 1,000 Mcg Tab) 1,000 mcg PO DAILY [facility] Last Admin: 07/14/20 09:03 Dose: 1,000 mcg Documented by: Enoxaparin Sodium (Enoxaparin 30 Mg/0.3 Ml Syringe) 30 mg SUBCUT Q24H [facility] Last Admin: 07/14/20 20:41 Dose: 30 mg Documented by: Ferrous Sulfate (Ferrous Sulfate 325 Mg Tab) 325 mg PO DAILY [facility] Last Admin: 07/14/20 08:56 Dose: 325 mg Documented by: Fish Oil (Fish Oil/[place]-3 Fatty Acids 1 Gm Cap) 1 gm PO DAILY [facility] Last Admin: 07/14/20 08:59 Dose: 1 gm Documented by: Furosemide (Furosemide 80 Mg Tab) 80 mg PO TID [facility] Insulin Glargine (Insulin Glargine,Human Rec. Analog 100 Units/Ml 3 Ml Pen) 20 units SUBCUT DAILY [facility] Last Admin: 07/14/20 09:04 Dose: 20 units Documented by: Levothyroxine Sodium (Levothyroxine 100 Mcg Tab) 100 mcg PO ACBREAKFAST [facility] Last Admin: 07/15/20 06:32 Dose: 100 mcg Documented by: Magnesium Hydroxide (Magnesium Hydroxide 400 Mg/5 Ml Susp 30 Ml Cup) 30 ml PO Q12H PRN PRN Reason: Constipation Metolazone (Metolazone 5 Mg Tab) 5 mg PO DAILY@0730 [facility] Last Admin: 07/15/20 06:32 Dose: 5 mg Documented by: Multivitamins/Minerals/Vitamin C (Multivitamin Tab) 1 tab PO DAILY [facility] Last Admin: 07/14/20 09:02 Dose: 1 tab Documented by: Ondansetron HCl (Ondansetron 4 Mg/2 Ml Sdv) 4 mg IV Q4H PRN PRN Reason: Nausea/Vomiting Pantoprazole Sodium (Pantoprazole 40 Mg Tab.Cr) 40 mg PO BID@0600,2100 [facility] Last Admin: 07/15/20 06:01 Dose: 40 mg Documented by: Sodium Chloride (Sodium Chloride 0.9% 10 Ml Syringe) 10 ml FLUSH ASDIRECTED PRN PRN Reason: saline lock flush Last Admin: 07/14/20 20:48 Dose: 10 ml Documented by: Tamsulosin HCl (Tamsulosin 0.4 Mg Cap.Er) 0.4 mg PO DAILY [facility] Last Admin: 07/14/20 09:00 Dose: 0.4 mg Documented by: Zolpidem Tartrate (Zolpidem 5 Mg Tab) 5 mg PO BEDTIME PRN PRN Reason: Sleep Discontinued Medications Amlodipine Besylate (Amlodipine 5 Mg Tab) 5 mg PO DAILY [facility] Last Admin: 07/10/20 10:19 Dose: 5 mg Documented by: Atorvastatin Calcium (Atorvastatin 40 Mg Tab) 80 mg PO DAILY [facility] Last Admin: 07/10/20 10:18 Dose: 80 mg Documented by: Benazepril HCl (Benazepril 10 Mg Tab) 10 mg PO DAILY [facility] Last Admin: 07/10/20 10:19 Dose: 10 mg Documented by: Furosemide (Furosemide 40 Mg/4 Ml Vial) 40 mg IVPUSH NOW ONE Stop: 07/09/20 14:34 Last Admin: 07/09/20 15:12 Dose: 40 mg Documented by: Furosemide (Furosemide 40 Mg/4 Ml Vial) 40 mg IVPUSH BID [facility] Last Admin: 07/09/20 22:07 Dose: 40 mg Documented by: Furosemide (Furosemide 40 Mg/4 Ml Vial) 40 mg IVPUSH BIDDIURETIC [facility] Last Admin: 07/13/20 08:32 Dose: 40 mg Documented by: Furosemide (Furosemide 40 Mg/4 Ml Vial) 40 mg IVPUSH NOW ONE Stop: 07/11/20 16:29 Last Admin: 07/11/20 16:34 Dose: 40 mg Documented by: Furosemide (Furosemide 40 Mg/4 Ml Vial) 40 mg IVPUSH TID [facility] Last Admin: 07/14/20 20:42 Dose: 40 mg Documented by: Nitroglycerin/Dextrose (Nitroglycerin 25 Mg/D5w 250 Ml) 25 mg in 250 mls @ 30 mls/hr IV TITRATE [facility]; Protocol Last Admin: 07/10/20 08:26 Dose: 50 mcg/min, 30 mls/hr Documented by: Nitroglycerin/Dextrose (Nitroglycerin 25 Mg/D5w 250 Ml) 25 mg in 250 mls @ 30 mls/hr IV TITRATE [facility]; Protocol Insulin Glargine (Insulin Glargine,Human Rec. Analog 100 Units/Ml 3 Ml Pen) 20 units SUBCUT DAILY PRN PRN Reason: Hyperglycemia Metolazone (Metolazone 2.5 Mg Tab) 2.5 mg PO DAILY@0730 [facility] Last Admin: 07/13/20 06:32 Dose: 2.5 mg Documented by: Metolazone (Metolazone 2.5 Mg Tab) 2.5 mg PO ONETIME ONE Stop: 07/13/20 09:16 Last Admin: 07/13/20 09:49 Dose: 2.5 mg Documented by: Non-Formulary Medication (Amlodipine/Benazepril [Lotrel 5-10 Mg]) 1 cap PO DAILY [facility] Non-Formulary Medication (Cinnamon Bark [Cinnamon]) 1,000 mg PO BID [facility] Last Admin: 07/10/20 16:41 Dose: Not Given Documented by: Omeprazole 20mg Caps (*Ptom) 0 each PO BID@0600,2100 [facility] Last Admin: 07/13/20 05:31 Dose: 1 each Documented by: Atorvastatin 80mg * (Ptom) 0 each PO DAILY [facility] Last Admin: 07/13/20 08:30 Dose: 1 each Documented by: Amlodipine 5mg/Benazepril 10mg * Ptom 0 each PO DAILY [facility] Last Admin: 07/13/20 08:31 Dose: 1 each Documented by: Pantoprazole Sodium (Pantoprazole 40 Mg Tab.Cr) 40 mg PO ACBREAKFAST [facility] Last Admin: 07/10/20 07:04 Dose: 40 mg Documented by: Comments:: Patient was eating breakfast this morning, awake, alert, interactive, pleasant - Exam Quality Assessment: Supplemental Oxygen, DVT Prophylaxis, Skin Breakdown General: Alert, Oriented, Cooperative, No Acute Distress HEENT: EOMI Lungs: Decreased Breath Sounds, Crackles Cardiovascular: Regular Rate GI/Abdominal Exam: Normal Bowel Sounds (Male) Exam: Scrotal Swelling, Scrotum Tenderness (L), Scrotum Tenderness (R) Extremities: Pedal Edema, Other (Stasis dermatitis, right upper extremity swell ing) Peripheral Pulses: 2+: Radial (L), Radial (R) Skin: Warm, Dry, Intact Wound/Incisions: Dressing Dry and Intact, No Drainage Neurological: No New Focal Deficit Psy/Mental Status: Alert, Normal Affect, Normal Mood - Patient Data Lab Results Last 24 hrs: Laboratory Results - last 24 hr 07/14/20 07/14/20 07/14/20 Range/Units 06:45 07:50 17:28 Sodium (135-145) mmol/L Potassium (3.5-5.3) mmol/L Chloride (100-110) mmol/L Carbon Dioxide (21-32) mmol/L BUN (7-18) mg/dL Creatinine (0.70-1.30) mg/dL Est Cr Clr Drug Dosing mL/min Estimated GFR (MDRD) (>60) BUN/Creatinine Ratio (9-20) Glucose (80-116) mg/dL POC Glucose 130 H 124 H (80-116) mg/dL Calcium (8.6-10.2) mg/dL NT-Pro-B Natriuret Pep 6965 H* (<=125) pg/mL 07/15/20 Range/Units 07:18 Sodium 142 (135-145) mmol/L Potassium 4.4 (3.5-5.3) mmol/L Chloride 105 (100-110) mmol/L Carbon Dioxide 31 (21-32) mmol/L BUN 63 H (7-18) mg/dL Creatinine 3.7 H* (0.70-1.30) mg/dL Est Cr Clr Drug Dosing 16.85 mL/min Estimated GFR (MDRD) 20 L (>60) BUN/Creatinine Ratio 17.0 (9-20) Glucose 118 H (80-116) mg/dL POC Glucose (80-116) mg/dL Calcium 8.1 L (8.6-10.2) mg/dL NT-Pro-B Natriuret Pep (<=125) pg/mL Result Diagrams: 07/14/20 06:45 07/15/20 07:18 Sepsis Event Note - Evaluation Sepsis Screening Result: No Definite Risk - Focused Exam Vital Signs: Vital Signs Temp Pulse Resp BP Pulse Ox Pulse Ox 07/15/20 04:00 36.6 C 76 24 H 145/78 H 92 L 07/15/20 01:00 91 L 07/15/20 00:00 36.4 C 79 20 147/75 H 91 L 07/14/20 20:00 36.6 C 80 22 H 144/82 H 91 L - Problem List & Annotations (1) Acute exacerbation of CHF (congestive heart failure) SNOMED Code(s): 012918468, 76300021700616 Code(s): I50.9 - HEART FAILURE, UNSPECIFIED Status: Acute Current Visit: Yes (2) Acute on chronic renal insufficiency SNOMED Code(s): 311544775 Code(s): N28.9 - DISORDER OF KIDNEY AND URETER, UNSPECIFIED; N18.9 - CHRONIC KIDNEY DISEASE, UNSPECIFIED Status: Acute Current Visit: Yes (3) Acute pulmonary edema SNOMED Code(s): 62432344 Code(s): J81.0 - ACUTE PULMONARY EDEMA Status: Acute Current Visit: Yes (4) Anasarca SNOMED Code(s): 522483917, 803821376 Code(s): R60.1 - GENERALIZED EDEMA Status: Acute Current Visit: Yes Annotation/Comment:: Improved. Continue diuresis at home with Lasix and Zaroxolyn as above. (5) Diabetes type 2, controlled SNOMED Code(s): 74911499, 102252275 Code(s): E11.9 - TYPE 2 DIABETES MELLITUS WITHOUT COMPLICATIONS Status: Chronic Current Visit: Yes Qualifiers: Diabetes mellitus ad terminal makeup operator insulin use: with ad terminal makeup operator use Diabetes mellitus complication status: with circulatory complication (6) CKD (chronic kidney disease) stage 4, GFR 15-29 ml/min SNOMED Code(s): 573725189 Code(s): N18.4 - CHRONIC KIDNEY DISEASE, STAGE 4 (SEVERE) Status: Chronic Current Visit: Yes (7) Palliative care encounter SNOMED Code(s): 146703537, 844693855 Code(s): Z51.5 - ENCOUNTER FOR PALLIATIVE CARE Status: Acute Current Visit: No (8) SOBOE (shortness of breath on exertion) SNOMED Code(s): 83678560 Code(s): R06.02 - SHORTNESS OF BREATH Status: Acute Current Visit: No Annotation/Comment:: Obtain Echo,BNP.Start Lasix IV. (9) Anemia SNOMED Code(s): 715422679 Code(s): D64.9 - ANEMIA, UNSPECIFIED Status: Chronic Current Visit: No Qualifiers: Anemia type: due to chronic kidney disease Chronic kidney disease stage: stage 4 (severe) Qualified Code(s): N18.4 - Chronic kidney disease, stage 4 (severe); D63.1 - Anemia in chronic kidney disease (10) HTN (hypertension) SNOMED Code(s): 10525361 Code(s): I10 - ESSENTIAL (PRIMARY) HYPERTENSION Status: Chronic Current Visit: No Qualifiers: Hypertension type: essential hypertension Qualified Code(s): I10 - Essential (primary) hypertension Annotation/Comment:: Ran high into the 160s during hospitalization. After diuresis, reassess. (11) Hx of BKA Status: Chronic Current Visit: No Qualifiers: Laterality: right Qualified Code(s): Z89.511 - Acquired absence of right leg below knee (12) Hypothyroid SNOMED Code(s): 88796919 Code(s): E03.9 - HYPOTHYROIDISM, UNSPECIFIED Status: Chronic Current Visit: No Qualifiers: Hypothyroidism type: unspecified Qualified Code(s): E03.9 - Hypothyroidism, unspecified Annotation/Comment:: Recheck TSH,continue home meds (13) Obesity SNOMED Code(s): 609578993, 556055158 Code(s): E66.9 - OBESITY, UNSPECIFIED Status: Chronic Current Visit: No Qualifiers: Obesity type: due to excess calories - Problem List Review Problem List Initiated/Reviewed/Updated: Yes - My Orders Last 24 Hours: My Active Orders 07/14/20 07:30 metOLazone [Zaroxolyn] 5 mg PO DAILY@0730 07/14/20 09:00 Benazepril [Lotensin] 10 mg PO DAILY 07/15/20 06:51 OT Evaluation and Treatment [CONS] Routine PT Evaluation and Treatment [CONS] Routine 07/15/20 09:00 Furosemide [Lasix] 80 mg PO TID - Plan Plan:: Continue diuresis -oral medications, metolazone 5 mg and Lasix 80 mg 3 times daily. Review of daily weights shows that the patient weighed 133 kg on 07/12, 130 kg on 07/14, and 126 kg on 07/15. Review of renal function shows a creatinine was 3.9 on 07/13 and 3.7 today, 07/15 Diet with salt and fluid restrictions, no salt added, 1200 mL fluid restriction daily. Consider discharge with torsemide and continue metolazone. Continue enoxaparin for DVT prophylaxis Disposition: Patient edema is improving. If the patient continues to improve on oral diuresis and has significant relief of scrotal swelling and pain he should be discharged on Monday. Note that the patient oxygen saturation decreases signi ficantly into the low 80s just after ambulating to the bathroom. Consider home oxygen therapy at discharge.
[2020-07-15] MEDS: Tamsulosin 0.4 MG Cap.ER PO SCH (08:42)
[2020-07-15] MEDS: Fish Oil/Omega-3 Fatty Acids 1 Gm Cap PO SCH (08:42)
[2020-07-15] MEDS: Aspirin 81 MG Tab.EC PO SCH (08:42)
[2020-07-15] MEDS: Ascorbic Acid 500 MG Tab PO SCH (08:42)
[2020-07-15] MEDS: Calcitriol 0.25 MCG Cap PO SCH (08:42)
[2020-07-15] MEDS: Ferrous Sulfate 325 MG Tab PO SCH (08:43)
[2020-07-15] MEDS: Cyanocobalamin (Vitamin B12) 1,000 MCG Tab PO SCH (08:43)
[2020-07-15] MEDS: Clopidogrel 75 MG Tab PO SCH (08:43)
[2020-07-15] MEDS: Multivitamin Tab PO SCH (08:44)
[2020-07-15] MEDS: amLODIPine 5 MG Tab PO SCH (08:45)
[2020-07-15] MEDS: Benazepril 10 MG Tab PO SCH (08:45)
[2020-07-15] MEDS: Cholecalciferol (Vitamin D3) 25 MCG Tab PO SCH (08:46)
[2020-07-15] MEDS: atorvaSTATin 40 MG Tab PO SCH (08:47)
[2020-07-15] MEDS: Insulin Glargine,Human Rec. Analog 100 Units/ML 3 ML Pen SUBCUT SCH (08:54)
[2020-07-15] MEDS: Furosemide 80 MG Tab PO SCH ×3 (09:23→21:19)
[2020-07-15] MEDS: Enoxaparin 30 MG/0.3 ML Syringe SUBCUT SCH (21:00)
[2020-07-16] MEDS: Pantoprazole 40 MG Tab.CR PO SCH (05:45)
[2020-07-16] MEDS: Levothyroxine 100 MCG Tab PO SCH (06:44)
[2020-07-16] MEDS: Metolazone 5 MG Tab PO SCH (06:44)
[2020-07-16] MEDS: Ferrous Sulfate 325 MG Tab PO SCH (09:35)
[2020-07-16] MEDS: Fish Oil/Omega-3 Fatty Acids 1 Gm Cap PO SCH (09:35)
[2020-07-16] MEDS: Aspirin 81 MG Tab.EC PO SCH (09:35)
[2020-07-16] MEDS: Tamsulosin 0.4 MG Cap.ER PO SCH (09:35)
[2020-07-16] MEDS: Furosemide 80 MG Tab PO SCH ×2 (09:36→14:21)
[2020-07-16] MEDS: atorvaSTATin 40 MG Tab PO SCH (09:36)
[2020-07-16] MEDS: Benazepril 10 MG Tab PO SCH (09:36)
[2020-07-16] MEDS: amLODIPine 5 MG Tab PO SCH (09:37)
[2020-07-16] MEDS: Clopidogrel 75 MG Tab PO SCH (09:37)
[2020-07-16] MEDS: Multivitamin Tab PO SCH (09:38)
[2020-07-16] MEDS: Cyanocobalamin (Vitamin B12) 1,000 MCG Tab PO SCH (09:38)
[2020-07-16] MEDS: Ascorbic Acid 500 MG Tab PO SCH (09:38)
[2020-07-16] MEDS: Calcitriol 0.25 MCG Cap PO SCH (09:38)
[2020-07-16] MEDS: Insulin Glargine,Human Rec. Analog 100 Units/ML 3 ML Pen SUBCUT SCH (09:39)
[2020-07-16] MEDS: Cholecalciferol (Vitamin D3) 25 MCG Tab PO SCH (09:39)
--- NOTE | 2020-07-16 11:57 | PCM.DCSUM1 ---
Discharge Summary - Hospital Course Free Text/Narrative:: Patient was admitted secondary to exacerbation of congestive heart failure with significant pitting edema up to the umbilicus with significant scrotal swelling and pain, weakness. Patient was treated with aggressive IV diuresis. Patient was discission to oral diuretics and continued to do well. Patient's function has improved with the aid of occupational physical therapy. Patient's edema is now at the mid left thigh and proximal right thigh, scrotal swelling is improved. Patient has also had significant shortness of breath/dyspnea with exertion while inpatient. He qualified for home oxygen. He will be discharged to home with home health for home O2 monitoring, medication management, and with occupational physical therapy. And is advised to follow-up with his primary care physician at his earliest convenience and continue to take his medications as directed. Continue to have fluid restriction of approximately 1200 mL a day and no added salt to his diet. I advised him to avoid salty foods such as cured meats such as sausage, gabriel, and canned foods with added salt. HPI Initial Comments: Mr Esposito is admitted in CHF. Presented to clinic with 10 lb weight gain over a few days,SOB at rest ,and generalized edema.may have started in June after he got 2 units of PRBC transfused for anemia.Denies CP. Has a h/o CHF,.CAD,HTN,DM, PAD Diagnosis: Stroke: No - Discharge Data Discharge Date: 07/16/20 Discharge Disposition: Home, W Home Health Agency 06 Condition: Fair - Referral to Home Health Date of Face to Face Encounter: 07/16/20 Reason for Homebound Status: Difficulty ambulating, weakness Primary Care Physician: Funmi Junior NP Skilled Need: Home oxygen, OT/PT - Discharge Diagnosis/Problem(s) (1) Acute exacerbation of CHF (congestive heart failure) SNOMED Code(s): 398978564, 47263060885352 ICD Code: I50.9 - HEART FAILURE, UNSPECIFIED Status: Acute Current Visit: Yes (2) Acute on chronic renal insufficiency SNOMED Code(s): 524002679 ICD Code: N28.9 - DISORDER OF KIDNEY AND URETER, UNSPECIFIED; N18.9 - CHRONIC KIDNEY DISEASE, UNSPECIFIED Status: Acute Current Visit: Yes (3) Acute pulmonary edema SNOMED Code(s): 25725549 ICD Code: J81.0 - ACUTE PULMONARY EDEMA Status: Acute Current Visit: Yes (4) Anasarca SNOMED Code(s): 008733997, 396040466 ICD Code: R60.1 - GENERALIZED EDEMA Status: Acute Current Visit: Yes Problem Details: Improved. Continue diuresis at home with Lasix and Zaroxolyn as above. 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 (9) Anemia SNOMED Code(s): 055903778 ICD Code: D64.9 - ANEMIA, UNSPECIFIED Status: Chronic Current Visit: No Qualifiers: Anemia type: due to chronic kidney disease Chronic kidney disease stage: stage 4 (severe) Qualified Code(s): N18.4 - Chronic kidney disease, stage 4 (severe); D63.1 - Anemia in chronic kidney disease (10) HTN (hypertension) SNOMED Code(s): 19698027 ICD Code: I10 - ESSENTIAL (PRIMARY) HYPERTENSION Status: Chronic Current Visit: No Problem Details: Ran high into the 160s during hospitalization. After diuresis, reassess. Qualifiers: Hypertension type: essential hypertension Qualified Code(s): I10 - Essential (primary) hypertension (11) Hx of BKA Status: Chronic Current Visit: No Qualifiers: Laterality: right Qualified Code(s): Z89.511 - Acquired absence of right leg below knee (12) Hypothyroid SNOMED Code(s): 90022913 ICD Code: E03.9 - HYPOTHYROIDISM, UNSPECIFIED Status: Chronic Current Visit: No Problem Details: Recheck TSH,continue home meds Qualifiers: Hypothyroidism type: unspecified Qualified Code(s): E03.9 - Hypothyroidism, unspecified (13) Obesity SNOMED Code(s): 404283435, 618384081 ICD Code: E66.9 - OBESITY, UNSPECIFIED Status: Chronic Current Visit: No Qualifiers: Obesity type: due to excess calories - Patient Summary/Data Consults: Consultations 07/15/20 06:51 OT Evaluation and Treatment [CONS] Routine Please Evaluate and Treat. OT Reason for Consult: ADL's This query below is only for informational purposes and is not editable. Admission Diagnosis/Problem: Heart failure PT Evaluation and Treatment [CONS] Routine Please Evaluate and Treat. PT Reason for Consult: Ambulation This query below is only for informational purposes and is not editable. Admission Diagnosis/Problem: Heart failure - Discharge Plan *PRESCRIPTION DRUG MONITORING PROGRAM REVIEWED*: Not Applicable *COPY OF PRESCRIPTION DRUG MONITORING REPORT IN PATIENT RUBINA: Not Applicable Prescriptions/Med Rec: Furosemide [Lasix] 80 mg PO TID 30 Days #90 tablet metOLazone [Zaroxolyn] 5 mg PO DAILY@729 30 Days #30 tablet Home Medications: Home Meds Multivitamins/Min/Ca/FA/Iron [Thera-M] 1 tab PO DAILY 12/22/15 [History] Omeprazole 20 mg PO BID@12/22/15 [History] amLODIPine/Benazepril [Lotrel 5-10 MG] 1 cap PO DAILY 12/22/15 [History] Aspirin [Ecotrin EC] 81 mg PO DAILY 10/11/16 [History] Clopidogrel Bisulfate [Clopidogrel] 75 mg PO DAILY 10/11/16 [History] Levothyroxine [Synthroid] 100 mcg PO DAILY 10/11/16 [History] Beet Root 2 tab PO DAILY 06/21/17 [History] Cholecalciferol (Vitamin D3) [Vitamin D3] 2,000 unit PO DAILY 06/21/17 [History] Cinnamon Bark [Cinnamon] 1,000 mg PO BID 06/21/17 [History] Ascorbate Calcium [Vitamin C] 500 mg PO DAILY 07/09/20 [History] Cyanocobalamin (Vitamin B-12) [Vitamin B-12] 1,000 mcg PO DAILY 07/09/20 [History] Ferrous Sulfate [Iron] 325 mg PO DAILY 07/09/20 [History] Fish Oil/[place]-3 Fatty Acids [Fish Oil 1,000 MG] 1 gm PO DAILY 07/09/20 [History] Insulin Detemir [Levemir Flextouch] 20 units SUBCUT DAILY PRN 07/09/20 [History] Tamsulosin [Flomax] 0.4 mg PO DAILY 07/09/20 [History] atorvaSTATin [Lipitor] 80 mg PO DAILY 07/09/20 [History] calcitrioL [Calcitriol] 0.25 mcg PO DAILY 07/09/20 [History] Furosemide [Lasix] 80 mg PO TID 30 Days #90 tablet 07/16/20 [Rx] metOLazone [Zaroxolyn] 5 mg PO DAILY@0730 30 Days #30 tablet 07/16/20 [Rx] Patient Handouts: Venous Thromboembolism Prevention Forms: ED Department Discharge Referrals: Funmi Junior NP [Primary Care Provider] - - Discharge Summary/Plan Comment DC Time >30 min.: No - General Info Date of Service: 07/16/20 Admission Dx/Problem (Free Text: Admission Diagnosis/Problem Admission Diagnosis/Problem Heart failure Subjective Update: Patient states that he is doing much better and feels better today and that he has even had improvement in his scrotal swelling/pain. He states he is ready to go home but wants to make sure that he has good instructions on how to take his medicine properly Functional Status: Reports: Pain Controlled, Tolerating Diet, Ambulating, Urinating - Review of Systems General: Reports: Fatigue HEENT: Reports: No Symptoms Pulmonary: Reports: No Symptoms Cardiovascular: Reports: No Symptoms Gastrointestinal: Reports: No Symptoms Genitourinary: Reports: No Symptoms Musculoskeletal: Reports: No Symptoms Skin: Reports: No Symptoms Neurological: Reports: No Symptoms Psychiatric: Reports: No Symptoms - Patient Data Vitals - Most Recent: Last Vital Signs Temp 36.9 C 07/16/20 03:44 Pulse 82 07/16/20 03:44 Resp 20 07/16/20 03:44 BP 163/78 H 07/16/20 09:37 Pulse Ox 94 L 07/16/20 03:44 Weight - Most Recent: 123.944 kg I&O - Last 24 hours: Intake & Output 07/15/20 07/16/20 07/16/20 22:59 06:59 14:59 Intake Total 800 Output Total 1380 Balance 800 -1380 Lab Results - Last 24 hrs: Laboratory Results - last 24 hr 07/15/20 07/16/20 Range/Units 17:47 05:38 POC Glucose 145 H 88 (80-116) mg/dL Med Orders - Current: Current Medications Acetaminophen (Acetaminophen 325 Mg Tab) 650 mg PO Q4H PRN PRN Reason: Pain (Mild 1-3)/fever Amlodipine Besylate (Amlodipine 5 Mg Tab) 5 mg PO DAILY [facility] Last Admin: 07/16/20 09:37 Dose: 5 mg Documented by: Ascorbic Acid (Ascorbic Acid 500 Mg Tab) 500 mg PO DAILY [facility] Last Admin: 07/16/20 09:38 Dose: 500 mg Documented by: Aspirin (Aspirin 81 Mg Tab.Ec) 81 mg PO DAILY [facility] Last Admin: 07/16/20 09:35 Dose: 81 mg Documented by: Atorvastatin Calcium (Atorvastatin 40 Mg Tab) 80 mg PO DAILY [facility] Last Admin: 07/16/20 09:36 Dose: 80 mg Documented by: Bacitracin (Bacitracin Oint 1 Gm U/D Packet) 1 dose TOP DAILY PRN PRN Reason: left lower leg wound Benazepril HCl (Benazepril 10 Mg Tab) 10 mg PO DAILY [facility] Last Admin: 07/16/20 09:36 Dose: 10 mg Documented by: Calcitriol (Calcitriol 0.25 Mcg Cap) 0.25 mcg PO DAILY [facility] Last Admin: 07/16/20 09:38 Dose: 0.25 mcg Documented by: Cholecalciferol (Cholecalciferol (Vitamin D3) 25 Mcg Tab) 50 mcg PO DAILY [facility] Last Admin: 07/16/20 09:39 Dose: 50 mcg Documented by: Clopidogrel Bisulfate (Clopidogrel 75 Mg Tab) 75 mg PO DAILY [facility] Last Admin: 07/16/20 09:37 Dose: 75 mg Documented by: Cyanocobalamin (Cyanocobalamin (Vitamin B12) 1,000 Mcg Tab) 1,000 mcg PO DAILY [facility] Last Admin: 07/16/20 09:38 Dose: 1,000 mcg Documented by: Enoxaparin Sodium (Enoxaparin 30 Mg/0.3 Ml Syringe) 30 mg SUBCUT Q24H [facility] Last Admin: 07/15/20 21:00 Dose: 30 mg Documented by: Ferrous Sulfate (Ferrous Sulfate 325 Mg Tab) 325 mg PO DAILY [facility] Last Admin: 07/16/20 09:35 Dose: 325 mg Documented by: Fish Oil (Fish Oil/[place]-3 Fatty Acids 1 Gm Cap) 1 gm PO DAILY [facility] Last Admin: 07/16/20 09:35 Dose: 1 gm Documented by: Furosemide (Furosemide 80 Mg Tab) 80 mg PO TID [facility] Last Admin: 07/16/20 09:36 Dose: 80 mg Documented by: Insulin Glargine (Insulin Glargine,Human Rec. Analog 100 Units/Ml 3 Ml Pen) 20 units SUBCUT DAILY [facility] Last Admin: 07/16/20 09:39 Dose: 20 units Documented by: Levothyroxine Sodium (Levothyroxine 100 Mcg Tab) 100 mcg PO ACBREAKFAST [facility] Last Admin: 07/16/20 06:44 Dose: 100 mcg Documented by: Magnesium Hydroxide (Magnesium Hydroxide 400 Mg/5 Ml Susp 30 Ml Cup) 30 ml PO Q12H PRN PRN Reason: Constipation Metolazone (Metolazone 5 Mg Tab) 5 mg PO DAILY@0730 [facility] Last Admin: 07/16/20 06:44 Dose: 5 mg Documented by: Multivitamins/Minerals/Vitamin C (Multivitamin Tab) 1 tab PO DAILY [facility] Last Admin: 07/16/20 09:38 Dose: 1 tab Documented by: Ondansetron HCl (Ondansetron 4 Mg/2 Ml Sdv) 4 mg IV Q4H PRN PRN Reason: Nausea/Vomiting Pantoprazole Sodium (Pantoprazole 40 Mg Tab.Cr) 40 mg PO BID@0600,2100 [facility] Last Admin: 07/16/20 05:45 Dose: 40 mg Documented by: Sodium Chloride (Sodium Chloride 0.9% 10 Ml Syringe) 10 ml FLUSH ASDIRECTED PRN PRN Reason: saline lock flush Last Admin: 07/14/20 20:48 Dose: 10 ml Documented by: Tamsulosin HCl (Tamsulosin 0.4 Mg Cap.Er) 0.4 mg PO DAILY [facility] Last Admin: 07/16/20 09:35 Dose: 0.4 mg Documented by: Zolpidem Tartrate (Zolpidem 5 Mg Tab) 5 mg PO BEDTIME PRN PRN Reason: Sleep Discontinued Medications Amlodipine Besylate (Amlodipine 5 Mg Tab) 5 mg PO DAILY [facility] Last Admin: 07/10/20 10:19 Dose: 5 mg Documented by: Atorvastatin Calcium (Atorvastatin 40 Mg Tab) 80 mg PO DAILY [facility] Last Admin: 07/10/20 10:18 Dose: 80 mg Documented by: Benazepril HCl (Benazepril 10 Mg Tab) 10 mg PO DAILY [facility] Last Admin: 07/10/20 10:19 Dose: 10 mg Documented by: Furosemide (Furosemide 40 Mg/4 Ml Vial) 40 mg IVPUSH NOW ONE Stop: 07/09/20 14:34 Last Admin: 07/09/20 15:12 Dose: 40 mg Documented by: Furosemide (Furosemide 40 Mg/4 Ml Vial) 40 mg IVPUSH BID [facility] Last Admin: 07/09/20 22:07 Dose: 40 mg Documented by: Furosemide (Furosemide 40 Mg/4 Ml Vial) 40 mg IVPUSH BIDDIURETIC [facility] Last Admin: 07/13/20 08:32 Dose: 40 mg Documented by: Furosemide (Furosemide 40 Mg/4 Ml Vial) 40 mg IVPUSH NOW ONE Stop: 07/11/20 16:29 Last Admin: 07/11/20 16:34 Dose: 40 mg Documented by: Furosemide (Furosemide 40 Mg/4 Ml Vial) 40 mg IVPUSH TID [facility] Last Admin: 07/14/20 20:42 Dose: 40 mg Documented by: Nitroglycerin/Dextrose (Nitroglycerin 25 Mg/D5w 250 Ml) 25 mg in 250 mls @ 30 mls/hr IV TITRATE [facility]; Protocol Last Admin: 07/10/20 08:26 Dose: 50 mcg/min, 30 mls/hr Documented by: Nitroglycerin/Dextrose (Nitroglycerin 25 Mg/D5w 250 Ml) 25 mg in 250 mls @ 30 mls/hr IV TITRATE [facility]; Protocol Insulin Glargine (Insulin Glargine,Human Rec. Analog 100 Units/Ml 3 Ml Pen) 20 units SUBCUT DAILY PRN PRN Reason: Hyperglycemia Metolazone (Metolazone 2.5 Mg Tab) 2.5 mg PO DAILY@0730 [facility] Last Admin: 07/13/20 06:32 Dose: 2.5 mg Documented by: Metolazone (Metolazone 2.5 Mg Tab) 2.5 mg PO ONETIME ONE Stop: 07/13/20 09:16 Last Admin: 07/13/20 09:49 Dose: 2.5 mg Documented by: Non-Formulary Medication (Amlodipine/Benazepril [Lotrel 5-10 Mg]) 1 cap PO DAILY [facility] Non-Formulary Medication (Cinnamon Bark [Cinnamon]) 1,000 mg PO BID [facility] Last Admin: 07/10/20 16:41 Dose: Not Given Documented by: Omeprazole 20mg Caps (*Ptom) 0 each PO BID@0600,2100 [facility] Last Admin: 07/13/20 05:31 Dose: 1 each Documented by: Atorvastatin 80mg * (Ptom) 0 each PO DAILY [facility] Last Admin: 07/13/20 08:30 Dose: 1 each Documented by: Amlodipine 5mg/Benazepril 10mg * Ptom 0 each PO DAILY [facility] Last Admin: 07/13/20 08:31 Dose: 1 each Documented by: Pantoprazole Sodium (Pantoprazole 40 Mg Tab.Cr) 40 mg PO ACBREAKFAST [facility] Last Admin: 07/10/20 07:04 Dose: 40 mg Documented by: Comments:: Patient appears to be feeling much better today, edema improved, scrotal swelling improved - Exam Quality Assessment: Reports: Supplemental Oxygen, DVT Prophylaxis, Skin Breakdown General: Reports: Alert, Oriented, Cooperative, No Acute Distress HEENT: Reports: EOMI Lungs: Reports: Decreased Breath Sounds, Crackles Cardiovascular: Reports: Regular Rate, Regular Rhythm GI/Abdominal Exam: Normal Bowel Sounds, Soft, Non-Tender (Male) Exam: Scrotal Swelling, Scrotum Tenderness (L), Scrotum Tenderness (R), Other (Scrotal swelling/tautness has improved) Extremities: Other (Edema is now at the proximal right thigh and mid left thigh, note right BKA) Skin: Reports: Warm, Dry, Intact Neurological: Reports: No New Focal Deficit Psy/Mental Status: Reports: Alert, Normal Affect, Normal Mood
[2020-07-16 15:05] VITALS: BP 166/82; PULSE 85
== END 2020-07-16 16:10 | disposition home health service (06) | DRG 292 ==
LOC: FB.ED 14:15 → UNDOADMOB 17:57 → INTOOBSV 17:57 → FB.MS 17:57 → FB.ICU 17:58 → FB.MS 17:58 → INTOOBSV 07-13 09:09 → OBSVTOIN 07-13 09:09
PROVIDERS: ADMIT Emergency Medicine; ATTEND Student in an Organized Health Care Education/Training Program
DX: I13.0 Hypertensive heart and chronic kidney disease with heart failure and stage 1 through stage 4 chronic kidney disease, or unspecified chronic kidney disease (principal); N18.4 Chronic kidney disease, stage 4 (severe); Z68.43 Body mass index [BMI] 50.0-59.9, adult; N17.9 Acute kidney failure, unspecified; N39.0 Urinary tract infection, site not specified; R79.82 Elevated C-reactive protein (CRP); R79.89 Other specified abnormal findings of blood chemistry; I50.9 Heart failure, unspecified; I25.10 Atherosclerotic heart disease of native coronary artery without angina pectoris; E11.22 Type 2 diabetes mellitus with diabetic chronic kidney disease; E11.51 Type 2 diabetes mellitus with diabetic peripheral angiopathy without gangrene; Z51.5 Encounter for palliative care; E11.9 Type 2 diabetes mellitus without complications; N50.89 Other specified disorders of the male genital organs; Z20.822 Contact with and (suspected) exposure to COVID-19; D63.1 Anemia in chronic kidney disease; E03.9 Hypothyroidism, unspecified; E66.9 Obesity, unspecified; H54.7 Unspecified visual loss; E78.00 Pure hypercholesterolemia, unspecified; Z89.511 Acquired absence of right leg below knee; I73.9 Peripheral vascular disease, unspecified; J81.0 Acute pulmonary edema; Z79.82 Long term (current) use of aspirin; Z79.890 Hormone replacement therapy; Z79.4 Long term (current) use of insulin; Z79.899 Other long term (current) drug therapy; Z86.718 Personal history of other venous thrombosis and embolism; Z95.5 Presence of coronary angioplasty implant and graft; Z87.891 Personal history of nicotine dependence; E88.09 Other disorders of plasma-protein metabolism, not elsewhere classified; I25.2 Old myocardial infarction; Z79.02 Long term (current) use of antithrombotics/antiplatelets
CPT/HCPCS: 36415 ×5; 71045; 80048 ×3; 80053 ×2; 81001; 82947 ×12; 83880 ×4; 84484; 85025 ×5; 85610; 86140; 87086; 93005; 94150 ×2; 94760 ×5; 96365; 96366; 96375; 99285; A9270 ×52; J1650 ×4; J1815 ×3; J1940 ×10; J3490 ×3; U0002; 93010; 97166-GO; 97530-GO; 97535-GO

== ENCOUNTER 2020-10-12 19:16 | Emergency (ER) | payer MEDICARE ==
[2020-10-12 19:31] VITALS: PULSE 86
[2020-10-12] MEDS ORDERED: Cephalexin 500 MG Cap PO STA (19:47)
--- NOTE | 2020-10-12 19:47 | EDM.PDOC ---
ED HPI GENERAL MEDICAL PROBLEM - General Stated Complaint: LEG STUFF Time Seen by Provider: 10/12/20 19:35 Source of Information: Reports: Patient History Limitations: Reports: No Limitations - History of Present Illness INITIAL COMMENTS - FREE TEXT/NARRATIVE: Patient presented to the ED because of a large bullae on his left leg that is draining with clear fluid. He apparently was at the gym on Monday and bumped his left leg against a weight and then a bullae formed which got bigger as the days go by. - Related Data Allergies Allergy/AdvReac Type Severity Reaction Status Date / Time No Known Allergies Allergy Verified 06/21/17 13:42 Home Meds: Home Meds Multivitamins/Min/Ca/FA/Iron [Thera-M] 1 tab PO DAILY 12/22/15 [History] Omeprazole 20 mg PO BID@12/22/15 [History] amLODIPine/Benazepril [Lotrel 5-10 MG] 1 cap PO DAILY 12/22/15 [History] Aspirin [Ecotrin EC] 81 mg PO DAILY 10/11/16 [History] Clopidogrel Bisulfate [Clopidogrel] 75 mg PO DAILY 10/11/16 [History] Levothyroxine [Synthroid] 100 mcg PO DAILY 10/11/16 [History] Beet Root 2 tab PO DAILY 06/21/17 [History] Cholecalciferol (Vitamin D3) [Vitamin D3] 2,000 unit PO DAILY 06/21/17 [History] Cinnamon Bark [Cinnamon] 1,000 mg PO BID 06/21/17 [History] Ascorbate Calcium [Vitamin C] 500 mg PO DAILY 07/09/20 [History] Cyanocobalamin (Vitamin B-12) [Vitamin B-12] 1,000 mcg PO DAILY 07/09/20 [History] Ferrous Sulfate [Iron] 325 mg PO DAILY 07/09/20 [History] Fish Oil/[place]-3 Fatty Acids [Fish Oil 1,000 MG] 1 gm PO DAILY 07/09/20 [History] Insulin Detemir [Levemir Flextouch] 20 units SUBCUT DAILY PRN 07/09/20 [History] Tamsulosin [Flomax] 0.4 mg PO DAILY 07/09/20 [History] atorvaSTATin [Lipitor] 80 mg PO DAILY 07/09/20 [History] calcitrioL [Calcitriol] 0.25 mcg PO DAILY 07/09/20 [History] Furosemide [Lasix] 80 mg PO TID 30 Days #90 tablet 07/16/20 [Rx] metOLazone [Zaroxolyn] 5 mg PO DAILY@0730 30 Days #30 tablet 07/16/20 [Rx] cephALEXin [Keflex] 500 mg PO Q8H #30 cap 10/12/20 [Rx] Past Medical History HEENT History: Reports: Cataract, Impaired Vision Other HEENT History: DIABETIC RETINOPATHY Cardiovascular History: Reports: Blood Clots/VTE/DVT, Heart Failure, High Cholesterol, Hypertension, PR, SOB on Exertion Respiratory History: Reports: SOB Gastrointestinal History: Reports: None Genitourinary History: Reports: Chronic Renal Insuffiency, Renal Disease Other Genitourinary History: ORCHIETOMY R/T DIABETES, ERECTILE DYSFUNCTION Musculoskeletal History: Reports: Amputation, Other (See Below) Other Musculoskeletal History: OSTEOMYLITIS, BKA OF RIGHT LEG Neurological History: Reports: Migraines Psychiatric History: Reports: None Endocrine/Metabolic History: Reports: Diabetes, Type II, Hypothyroidism, Obesity/BMI 30+ Hematologic History: Reports: Anemia, Blood Transfusion(s) Other Immunologic History: MRSA, HEPATITIS C Oncologic (Cancer) History: Reports: None Dermatologic History: Reports: Psoriasis Other Dermatologic History: PT HAS VERY DRY SKIN TO LEFT LOWER LEG\FOOT. DRY FLAKY SKIN. - Infectious Disease History Infectious Disease History: Reports: Chicken Pox - Past Surgical History Head Surgeries/Procedures: Reports: None HEENT Surgical History: Reports: None Cardiovascular Surgical History: Reports: Coronary Artery Stent Respiratory Surgical History: Reports: None GI Surgical History: Reports: Colonoscopy Male Surgical History: Reports: Other (See Below) Endocrine Surgical History: Reports: None Neurological Surgical History: Reports: None Musculoskeletal Surgical History: Reports: Amputation, ORIF Other Musculoskeletal Surgeries/Procedures:: FX SURGERY PER HX Oncologic Surgical History: Reports: None Dermatological Surgical History: Reports: None Social & Family History - Family History Family Medical History: No Pertinent Family History Cardiac: Reports: PR Neurological: Reports: Cerebral Aneurysms - Caffeine Use Caffeine Use: Reports: Tea - Living Situation & Occupation Living situation: Reports: Single Occupation: Unemployed ED ROS GENERAL - Review of Systems Review Of Systems: See Below Constitutional: Reports: No Symptoms HEENT: Reports: No Symptoms Respiratory: Reports: No Symptoms Cardiovascular: Reports: No Symptoms Endocrine: Reports: No Symptoms GI/Abdominal: Reports: No Symptoms : Reports: No Symptoms Musculoskeletal: Reports: No Symptoms Skin: Reports: Other (bullae-left leg) Psychiatric: Reports: No Symptoms ED EXAM, GENERAL - Physical Exam Exam: See Below Exam Limited By: No Limitations General Appearance: Alert, No Apparent Distress Eye Exam: Bilateral Eye: PERRL Ears: Normal External Exam, Normal Canal Nose: Normal Inspection, Normal Mucosa, No Blood Throat/Mouth: Normal Inspection, Normal Lips, Normal Teeth Head: Atraumatic, Normocephalic Neck: Normal Inspection, Supple, Non-Tender, Full Range of Motion Respiratory/Chest: No Respiratory Distress, Lungs Clear, Normal Breath Sounds, No Accessory Muscle Use, Chest Non-Tender Cardiovascular: Normal Peripheral Pulses, Regular Rate, Rhythm, No Edema, No Gallop, No JVD, No Murmur, No Rub GI/Abdominal: Normal Bowel Sounds, Soft, Non-Tender, No Organomegaly, No Distention, No Abnormal Bruit, No Mass (Male) Exam: No Hernia, Normal Inspection Back Exam: Normal Inspection, Full Range of Motion Extremities: Normal Inspection, Normal Range of Motion, Non-Tender, No Pedal Edema, Normal Capillary Refill Neurological: Alert, Oriented, CN II-XII Intact, Normal Cognition, Normal Gait, Normal Reflexes, No Motor/Sensory Deficits Psychiatric: Normal Affect Skin Exam: Warm, Other (large bullae Left leg that is draining with clear fl;uid) Course - Vital Signs Text/Narrative:: The left leg was sterilized with alcohol swab and three 1 cm incision was made on the large bullae. It then drained clear fluid and then a non-adhesive dressing was applied by ER nurse. Last Recorded V/S: Last Vital Signs Temp 36.7 C 10/12/20 19:26 Pulse 86 10/12/20 19:26 Resp 18 10/12/20 19:26 BP 181/89 H 10/12/20 19:50 Pulse Ox 91 L 10/12/20 19:26 - Orders/Labs/Meds Meds: Medications Discontinued Medications Generic Name Dose Route Start Last Admin Trade Name Freq PRN Reason Stop Dose Admin Cephalexin 500 mg 10/12/20 19:47 10/12/20 20:05 Cephalexin 500 Mg Cap PO 10/12/20 19:48 500 mg NOW STA Administration Departure - Departure Time of Disposition: 19:50 Disposition: Home, Self-Care 01 Condition: Good Clinical Impression: Lymphedema - Discharge Information Prescriptions: cephALEXin [Keflex] 500 mg PO Q8H #30 cap Instructions: Lymphedema Referrals: PCP,None [Primary Care Provider] - Forms: ED Department Discharge Additional Instructions: Please read discharge instructions on lymphedema Take keflex 500 mg e times daily for 10 days Apply vaseline twice daily(morning and night) for 10 days Return to the ED if you develop fever,chills,pus discharge, pain,swelling Remove the dressing tomorrow and don't cover it when you're inside the house Sepsis Event Note (ED) - Evaluation Sepsis Screening Result: No Definite Risk - Focused Exam Vital Signs: Vital Signs BP 10/12/20 19:50 181/89 H
[2020-10-12 21:28] VITALS: BP 181/89
== END 2020-10-12 20:15 | disposition home or self-care (01) ==
LOC: FB.ED 19:16
DX: I89.0 Lymphedema, not elsewhere classified (principal); E66.9 Obesity, unspecified; E11.9 Type 2 diabetes mellitus without complications; E03.9 Hypothyroidism, unspecified; E78.00 Pure hypercholesterolemia, unspecified; Z79.82 Long term (current) use of aspirin; Z79.4 Long term (current) use of insulin; Z79.899 Other long term (current) drug therapy; Z68.30 Body mass index [BMI] 30.0-30.9, adult
CPT/HCPCS: 99283; A9270

== ENCOUNTER 2021-01-08 09:35 | Observation (INO) | payer MEDICARE ==
--- NOTE | 2021-01-08 10:02 | EDM.PDOC ---
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 pt with CKD and HF with low GFR saw Dr Ocasio at [facility] 3m ago who said that fluid needed to be managed medically, no f/u last labs several months ago, will recheck heart/renal function today - Related Data Allergies Allergy/AdvReac Type Severity Reaction Status Date / Time No Known Allergies Allergy Verified 06/21/17 13:42 Home Meds: Home Meds Multivitamins/Min/Ca/FA/Iron [Thera-M] 1 tab PO DAILY 12/22/15 [History] Omeprazole 20 mg PO BID@12/22/15 [History] amLODIPine/Benazepril [Lotrel 5-10 MG] 1 cap PO DAILY 12/22/15 [History] Aspirin [Ecotrin EC] 81 mg PO DAILY 10/11/16 [History] Clopidogrel Bisulfate [Clopidogrel] 75 mg PO DAILY 10/11/16 [History] Levothyroxine [Synthroid] 100 mcg PO DAILY 10/11/16 [History] Beet Root 2 tab PO DAILY 06/21/17 [History] Cholecalciferol (Vitamin D3) [Vitamin D3] 2,000 unit PO DAILY 06/21/17 [History] Cinnamon Bark [Cinnamon] 1,000 mg PO BID 06/21/17 [History] Ascorbate Calcium [Vitamin C] 500 mg PO DAILY 07/09/20 [History] Cyanocobalamin (Vitamin B-12) [Vitamin B-12] 1,000 mcg PO DAILY 07/09/20 [History] Ferrous Sulfate [Iron] 325 mg PO DAILY 07/09/20 [History] Fish Oil/[place]-3 Fatty Acids [Fish Oil 1,000 MG] 1 gm PO DAILY 07/09/20 [History] Insulin Detemir [Levemir Flextouch] 20 units SUBCUT DAILY PRN 07/09/20 [History] Tamsulosin [Flomax] 0.4 mg PO DAILY 07/09/20 [History] atorvaSTATin [Lipitor] 80 mg PO DAILY 07/09/20 [History] calcitrioL [Calcitriol] 0.25 mcg PO DAILY 07/09/20 [History] Furosemide [Lasix] 80 mg PO TID 30 Days #90 tablet 07/16/20 [Rx] metOLazone [Zaroxolyn] 5 mg PO DAILY@0730 30 Days #30 tablet 07/16/20 [Rx] cephALEXin [Keflex] 500 mg PO Q8H #30 cap 10/12/20 [Rx] Past Medical History HEENT History: Reports: Cataract, Impaired Vision Other HEENT History: DIABETIC RETINOPATHY Cardiovascular History: Reports: Blood Clots/VTE/DVT, Heart Failure, High Cholesterol, Hypertension, [place], SOB on Exertion Respiratory History: Reports: SOB Gastrointestinal History: Reports: None Genitourinary History: Reports: Chronic Renal Insuffiency, Renal Disease Other Genitourinary History: ORCHIETOMY R/T DIABETES, ERECTILE DYSFUNCTION Musculoskeletal History: Reports: Amputation, Other (See Below) Other Musculoskeletal History: OSTEOMYLITIS, BKA OF RIGHT LEG Neurological History: Reports: Migraines Psychiatric History: Reports: None Endocrine/Metabolic History: Reports: Diabetes, Type II, Hypothyroidism, Obesity/BMI 30+ Hematologic History: Reports: Anemia, Blood Transfusion(s) Other Immunologic History: MRSA, HEPATITIS C Oncologic (Cancer) History: Reports: None Dermatologic History: Reports: Psoriasis Other Dermatologic History: PT HAS VERY DRY SKIN TO LEFT LOWER LEG\FOOT. DRY FLAKY SKIN. - Infectious Disease History Infectious Disease History: Reports: Chicken Pox - Past Surgical History Head Surgeries/Procedures: Reports: None HEENT Surgical History: Reports: None Cardiovascular Surgical History: Reports: Coronary Artery Stent Respiratory Surgical History: Reports: None GI Surgical History: Reports: Colonoscopy Male Surgical History: Reports: Other (See Below) Endocrine Surgical History: Reports: None Neurological Surgical History: Reports: None Musculoskeletal Surgical History: Reports: Amputation, ORIF Other Musculoskeletal Surgeries/Procedures:: FX SURGERY PER HX Oncologic Surgical History: Reports: None Dermatological Surgical History: Reports: None Social & Family History - Family History Family Medical History: No Pertinent Family History Cardiac: Reports: [place] Neurological: Reports: Cerebral Aneurysms - Caffeine Use Caffeine Use: Reports: Coffee - Living Situation & Occupation Living situation: Reports: Single Occupation: Unemployed ED ROS GENERAL - Review of Systems Review Of Systems: See Below Constitutional: Reports: No Symptoms HEENT: Reports: No Symptoms Respiratory: Reports: No Symptoms Cardiovascular: Reports: No Symptoms Endocrine: Reports: No Symptoms GI/Abdominal: Reports: No Symptoms : Reports: Other (scrotal edema) Musculoskeletal: Reports: No Symptoms Skin: Reports: No Symptoms Neurological: Reports: No Symptoms Psychiatric: Reports: No Symptoms Hematologic/Lymphatic: Reports: No Symptoms Immunologic: Reports: No Symptoms ED EXAM, RENAL/ - Physical Exam Exam: See Below Exam Limited By: No Limitations General Appearance: Alert, WD/WN, No Apparent Distress Respiratory/Chest: No Respiratory Distress, Lungs Clear Cardiovascular: Regular Rate, Rhythm (Male) Exam: Other (3+ scrotal edema with large hydroceles b/l on POCUS, skin intact and edematous, no red/warm, symmetric, nl tests x 2 on POCUS) Extremities: Other (3+ edema at thighs b/l, right BKA) Neurological: Alert, Oriented, CN II-XII Intact, Normal Cognition, No Motor/Sensory Deficits Psychiatric: Normal Affect, Normal Mood Skin Exam: Warm, Dry, Intact, Normal Color, No Rash Lymphatic: No Adenopathy Course - Vital Signs Last Recorded V/S: Last Vital Signs Temp 36.9 C 01/08/21 09:35 Pulse 77 01/08/21 09:35 Resp 20 01/08/21 09:35 BP 177/91 H 01/08/21 09:35 Pulse Ox 94 L 01/08/21 09:35 - Orders/Labs/Meds Orders: Active Orders 24 hr Category Date Time Status Admission Status [Patient Status] [ADT] Routine ADT 01/08/21 11:25 Ordered CORONAVIRUS COVID-19 YOVANY [MOLEC] Stat Lab 01/08/21 11:24 Ordered Sodium Chloride 0.9% [Saline Flush] Med 01/08/21 11:24 Ordered 10 ml FLUSH ASDIRECTED PRN Saline Lock Insert [OM.PC] Routine Oth 01/08/21 11:24 Ordered Medication Orders Sodium Chloride (Sodium Chloride 0.9% 10 Ml Syringe) 10 ml FLUSH ASDIRECTED PRN PRN Reason: Keep Vein Open Labs: Laboratory Tests 01/08/21 01/08/21 01/08/21 Range/Units 10:10 10:10 10:10 WBC 6.0 (3.2-10.1) x10-3/uL RBC 3.60 L (3.90-5.90) x10(6)uL Hgb 8.3 L (12.9-17.7) g/dL Hct 27.9 L (38.3-50.1) % MCV 77.4 L (80.8-98.7) fL MCH 23.0 L (27.0-33.3) pg MCHC 29.7 (28.7-35.3) g/dL RDW 18.0 H (12.4-15.0) % Plt Count 118 (117-477) x10(3)uL MPV 10.7 (6.7-11.0) fL Add Manual Diff Yes Neutrophils % (Manual) 70 (46-82) % Lymphocytes % (Manual) 18 (13-37) % Monocytes % (Manual) 9 (4-12) % Eosinophils % (Manual) 1 (0-5) % Metamyelocytes % 2 H (0-0) % Sodium 143 (135-145) mmol/L Potassium 5.2 (3.5-5.3) mmol/L Chloride 109 (100-110) mmol/L Carbon Dioxide 22 (21-32) mmol/L BUN 66 H (7-18) mg/dL Creatinine 4.4 H* (0.70-1.30) mg/dL Est Cr Clr Drug Dosing 14.17 mL/min Estimated GFR (MDRD) 16 L (>60) BUN/Creatinine Ratio 15.0 (9-20) Glucose 142 H (80-116) mg/dL Calcium 7.7 L (8.6-10.2) mg/dL Total Bilirubin 0.6 (0.1-1.3) mg/dL AST 53 H D (5-25) IU/L ALT 47 H (12-36) U/L Alkaline Phosphatase 176 H (56-112) IU/L Troponin I 25.4 (4.0-60.3) pg/mL NT-Pro-B Natriuret Pep 54529 H* (<=125) pg/mL Total Protein 7.0 (6.0-8.0) g/dL Albumin 2.5 L (3.2-4.6) g/dL Globulin 4.5 g/dL Albumin/Globulin Ratio 0.6 Meds: Medications Generic Name Dose Route Start Last Admin Trade Name Freq PRN Reason Stop Dose Admin Sodium Chloride 10 ml 01/08/21 11:24 Sodium Chloride 0.9% 10 Ml Syringe FLUSH ASDIRECTED PRN Keep Vein Open Discontinued Medications Generic Name Dose Route Start Last Admin Trade Name Valdemar PRN Reason Stop Dose Admin Furosemide 40 mg 01/08/21 11:12 Furosemide 40 Mg/4 Ml Vial IVPUSH 01/08/21 11:13 NOW ONE - Re-Assessments/Exams Free Text/Narrative Re-Assessment/Exam: 01/08/21 11:29 pt with marked increase of BNP, creat inc'd 3.7 to 4.4 now, decrease GFR 14 no cardiopulmonary symptoms will admit to diuresis, accepted by Dr Orosco, pt agrees there is woody edema of both LEs and some peeling epidermis on the LLE Departure - Departure Time of Disposition: 11:27 Disposition: Refer to Observation Condition: Good Clinical Impression: Acute exacerbation of congestive heart failure, Acute on chronic renal failure, Edema of scrotum - Discharge Information *PRESCRIPTION DRUG MONITORING PROGRAM REVIEWED*: Not Applicable *COPY OF PRESCRIPTION DRUG MONITORING REPORT IN PATIENT RUBINA: Not Applicable Sepsis Event Note (ED) - Focused Exam Vital Signs: Vital Signs Temp Pulse Resp BP Pulse Ox 01/08/21 09:35 36.9 C 77 20 177/91 H 94 L - My Orders Last 24 Hours: My Active Orders 01/08/21 11:24 CORONAVIRUS COVID-19 YOVANY [MOLEC] Stat Sodium Chloride 0.9% [Saline Flush] 10 ml FLUSH ASDIRECTED PRN Saline Lock Insert [OM.PC] Routine 01/08/21 11:25 Admission Status [Patient Status] [ADT] Routine - Assessment/Plan Last 24 Hours: My Active Orders 01/08/21 11:24 CORONAVIRUS COVID-19 YOVANY [MOLEC] Stat Sodium Chloride 0.9% [Saline Flush] 10 ml FLUSH ASDIRECTED PRN Saline Lock Insert [OM.PC] Routine 01/08/21 11:25 Admission Status [Patient Status] [ADT] Routine
[2021-01-08] MEDS ORDERED: Furosemide 40 MG/4 ML VIAL IVPUSH ONE (11:12)
[2021-01-08] MEDS: Sodium Chloride 0.9% 10 ML Syringe FLUSH PRN ×3 (11:29→20:31)
[2021-01-08] MEDS ORDERED: BISACODYL 5 MG PO PRN (12:57)
[2021-01-08] MEDS ORDERED: ASPIRIN 81 MG PO SCH (13:00)
[2021-01-08] MEDS ORDERED: Metolazone 5 MG Tab PO ONE (13:03)
--- NOTE | 2021-01-08 13:10 | PCM.HP.2 ---
H&P History of Present Illness - General Date of Service: 01/08/21 Admit Problem/Dx: Admission Diagnosis/Problem Admission Diagnosis/Problem Heart failure - Related Data Allergies/Adverse Reactions: Allergies Allergy/AdvReac Type Severity Reaction Status Date / Time No Known Allergies Allergy Verified 01/08/21 14:20 Home Medications: Home Meds Multivitamins/Min/Ca/FA/Iron [Thera-M] 1 tab PO DAILY 12/22/15 [History] Omeprazole 20 mg PO BID@12/22/15 [History] amLODIPine/Benazepril [Lotrel 5-10 MG] 1 cap PO DAILY 12/22/15 [History] Aspirin [Ecotrin EC] 81 mg PO DAILY 10/11/16 [History] Clopidogrel Bisulfate [Clopidogrel] 75 mg PO DAILY 10/11/16 [History] Levothyroxine [Synthroid] 100 mcg PO DAILY 10/11/16 [History] Cholecalciferol (Vitamin D3) [Vitamin D3] 2,000 unit PO DAILY 06/21/17 [History] Insulin Detemir [Levemir Flextouch] 20 units SUBCUT DAILY PRN 07/09/20 [History] Tamsulosin [Flomax] 0.4 mg PO DAILY 07/09/20 [History] atorvaSTATin [Lipitor] 80 mg PO DAILY 07/09/20 [History] calcitrioL [Calcitriol] 0.25 mcg PO DAILY 07/09/20 [History] Furosemide [Lasix] 40 mg PO BID@08,14 01/08/21 [History] Iron,Carbonyl/Ascorbic Acid [Vitron-C Tablet] 1 tab PO TIDMEALS 01/08/21 [History] Latanoprost [Xalatan] 1 drop EYEBOTH BEDTIME 01/08/21 [History] bisacodyL [Bisacodyl] 10 mg PO DAILY PRN 01/08/21 [History] Past Medical History HEENT History: Reports: Cataract, Impaired Vision Other HEENT History: DIABETIC RETINOPATHY Cardiovascular History: Reports: Blood Clots/VTE/DVT, Heart Failure, High Cholesterol, Hypertension, [place], SOB on Exertion Respiratory History: Reports: SOB Gastrointestinal History: Reports: None Genitourinary History: Reports: Chronic Renal Insuffiency, Renal Disease Other Genitourinary History: ORCHIETOMY R/T DIABETES, ERECTILE DYSFUNCTION Musculoskeletal History: Reports: Amputation, Other (See Below) Other Musculoskeletal History: OSTEOMYLITIS, BKA OF RIGHT LEG Neurological History: Reports: Migraines Psychiatric History: Reports: None Endocrine/Metabolic History: Reports: Diabetes, Type II, Hypothyroidism, [place] besity/BMI 30+ Hematologic History: Reports: Anemia, Blood Transfusion(s) Other Immunologic History: MRSA, HEPATITIS C Oncologic (Cancer) History: Reports: None Dermatologic History: Reports: Psoriasis Other Dermatologic History: PT HAS VERY DRY SKIN TO LEFT LOWER LEG\FOOT. DRY FLAKY SKIN. - Infectious Disease History Infectious Disease History: Reports: Chicken Pox - Past Surgical History Head Surgeries/Procedures: Reports: None HEENT Surgical History: Reports: None Cardiovascular Surgical History: Reports: Coronary Artery Stent Respiratory Surgical History: Reports: None GI Surgical History: Reports: Colonoscopy Male Surgical History: Reports: Other (See Below) Endocrine Surgical History: Reports: None Neurological Surgical History: Reports: None Musculoskeletal Surgical History: Reports: Amputation, ORIF Other Musculoskeletal Surgeries/Procedures:: FX SURGERY PER HX Oncologic Surgical History: Reports: None Dermatological Surgical History: Reports: None Social & Family History - Family History Family Medical History: No Pertinent Family History Cardiac: Reports: [place] Neurological: Reports: Cerebral Aneurysms - Caffeine Use Caffeine Use: Reports: Coffee - Living Situation & Occupation Living situation: Reports: Single Occupation: Unemployed H&P Review of Systems - Review of Systems: Review Of Systems: See Below General: Reports: No Symptoms HEENT: Reports: No Symptoms Pulmonary: Reports: No Symptoms Cardiovascular: Reports: Edema. Denies: Chest Pain Gastrointestinal: Reports: No Symptoms Genitourinary: Reports: Other (Scrotal swelling) Musculoskeletal: Reports: No Symptoms Skin: Reports: Wound Psychiatric: Reports: No Symptoms Neurological: Reports: Paresthesia Hematologic/Lymphatic: Reports: No Symptoms Immunologic: Reports: No Symptoms Exam - Exam Exam: See Below - Vital Signs Vital Signs: Last Vital Signs Temp 36.9 C 01/08/21 09:35 Pulse 77 01/08/21 09:35 Resp 20 01/08/21 09:35 BP 177/91 H 01/08/21 09:35 Pulse Ox 94 L 01/08/21 09:35 Weight: 111.13 kg - Exam Quality Assessment: Supplemental Oxygen, DVT Prophylaxis, Skin Breakdown General: Alert, Oriented, Cooperative HEENT: EOMI Lungs: Crackles Cardiovascular: Regular Rate, Regular Rhythm, Systolic Murmur, Gallop/S3 GI/Abdominal Exam: Normal Bowel Sounds, Distended Back Exam: Normal Inspection Extremities: Pedal Edema Skin: Wound Skin Alteration Location (Drawings Not To Scale): 1 - Right leg amputation below the knee. Left leg with stasis dermatitis with venous ulcers anteriorly and posteriorly Neurological: Cranial Nerves Intact Neuro Extensive - Mental Status: Alert, Oriented x3, Normal Mood/Affect, Normal Cognition Psychiatric: Alert, Normal Affect, Normal Mood - Patient Data Lab Results Last 24 hrs: Laboratory Results - last 24 hr 01/08/21 01/08/21 01/08/21 Range/Units 10:10 10:10 10:10 WBC 6.0 (3.2-10.1) x10-3/uL RBC 3.60 L (3.90-5.90) x10(6)uL Hgb 8.3 L (12.9-17.7) g/dL Hct 27.9 L (38.3-50.1) % MCV 77.4 L (80.8-98.7) fL MCH 23.0 L (27.0-33.3) pg MCHC 29.7 (28.7-35.3) g/dL RDW 18.0 H (12.4-15.0) % Plt Count 118 (117-477) x10(3)uL MPV 10.7 (6.7-11.0) fL Add Manual Diff Yes Neutrophils % (Manual) 70 (46-82) % Lymphocytes % (Manual) 18 (13-37) % Monocytes % (Manual) 9 (4-12) % Eosinophils % (Manual) 1 (0-5) % Metamyelocytes % 2 H (0-0) % Sodium 143 (135-145) mmol/L Potassium 5.2 (3.5-5.3) mmol/L Chloride 109 (100-110) mmol/L Carbon Dioxide 22 (21-32) mmol/L BUN 66 H (7-18) mg/dL Creatinine 4.4 H* (0.70-1.30) mg/dL Est Cr Clr Drug Dosing 14.17 mL/min Estimated GFR (MDRD) 16 L (>60) BUN/Creatinine Ratio 15.0 (9-20) Glucose 142 H (80-116) mg/dL Calcium 7.7 L (8.6-10.2) mg/dL Total Bilirubin 0.6 (0.1-1.3) mg/dL AST 53 H D (5-25) IU/L ALT 47 H (12-36) U/L Alkaline Phosphatase 176 H (56-112) IU/L Troponin I 25.4 (4.0-60.3) pg/mL NT-Pro-B Natriuret Pep 35876 H* (<=125) pg/mL Total Protein 7.0 (6.0-8.0) g/dL Albumin 2.5 L (3.2-4.6) g/dL Globulin 4.5 g/dL Albumin/Globulin Ratio 0.6 SARS-CoV-2 RNA (YOVANY) (NEGATIVE) 01/08/21 Range/Units 12:06 WBC (3.2-10.1) x10-3/uL RBC (3.90-5.90) x10(6)uL Hgb (12.9-17.7) g/dL Hct (38.3-50.1) % MCV (80.8-98.7) fL MCH (27.0-33.3) pg MCHC (28.7-35.3) g/dL RDW (12.4-15.0) % Plt Count (117-477) x10(3)uL MPV (6.7-11.0) fL Add Manual Diff Neutrophils % (Manual) (46-82) % Lymphocytes % (Manual) (13-37) % Monocytes % (Manual) (4-12) % Eosinophils % (Manual) (0-5) % Metamyelocytes % (0-0) % Sodium (135-145) mmol/L Potassium (3.5-5.3) mmol/L Chloride (100-110) mmol/L Carbon Dioxide (21-32) mmol/L BUN (7-18) mg/dL Creatinine (0.70-1.30) mg/dL Est Cr Clr Drug Dosing mL/min Estimated GFR (MDRD) (>60) BUN/Creatinine Ratio (9-20) Glucose (80-116) mg/dL Calcium (8.6-10.2) mg/dL Total Bilirubin (0.1-1.3) mg/dL AST (5-25) IU/L ALT (12-36) U/L Alkaline Phosphatase (56-112) IU/L Troponin I (4.0-60.3) pg/mL NT-Pro-B Natriuret Pep (<=125) pg/mL Total Protein (6.0-8.0) g/dL Albumin (3.2-4.6) g/dL Globulin g/dL Albumin/Globulin Ratio SARS-CoV-2 RNA (YOVANY) Negative (NEGATIVE) Result Diagrams: 01/08/21 10:10 01/08/21 10:10 Sepsis Event Note - Evaluation Sepsis Screening Result: No Definite Risk - Focused Exam Vital Signs: Vital Signs Temp Pulse Resp BP Pulse Ox 01/08/21 09:35 36.9 C 77 20 177/91 H 94 L - Problem List (1) Acute exacerbation of CHF (congestive heart failure) SNOMED Code(s): 516856891, 85688697501775 ICD Code: I50.9 - HEART FAILURE, UNSPECIFIED Status: Acute Current Visit: Yes (2) Acute on chronic renal failure SNOMED Code(s): 199659732 ICD Code: N17.9 - ACUTE KIDNEY FAILURE, UNSPECIFIED; N18.9 - CHRONIC KIDNEY DISEASE, UNSPECIFIED Status: Acute Current Visit: Yes (3) Edema of scrotum SNOMED Code(s): 70863569 ICD Code: N50.89 - OTHER SPECIFIED DISORDERS OF THE MALE GENITAL ORGANS Status: Acute Current Visit: Yes (4) Diabetes type 2, controlled SNOMED Code(s): 55488906, 860803253 ICD Code: E11.9 - TYPE 2 DIABETES MELLITUS WITHOUT COMPLICATIONS Status: Chronic Current Visit: No Problem Details: Continue once daily insulin at home. Qualifiers: Diabetes mellitus mcc insulin use: with mcc use Diabetes mellitus complication status: with kidney complications Chronic kidney disease stage: stage 3 (moderate) (5) Palliative care encounter SNOMED Code(s): 613851008, 444333666 ICD Code: Z51.5 - ENCOUNTER FOR PALLIATIVE CARE Status: Acute Current Visit: No (6) SOBOE (shortness of breath on exertion) SNOMED Code(s): 62464110 ICD Code: R06.02 - SHORTNESS OF BREATH Status: Acute Current Visit: No Problem Details: Obtain Echo,BNP.Start Lasix IV. (7) Weight gain Status: Acute Current Visit: No (8) Anemia SNOMED Code(s): 602084987 ICD Code: D64.9 - ANEMIA, UNSPECIFIED Status: Chronic Current Visit: No Qualifiers: Anemia type: due to chronic kidney disease Chronic kidney disease stage: stage 4 (severe) Qualified Code(s): N18.4 - Chronic kidney disease, stage 4 (severe); D63.1 - Anemia in chronic kidney disease (9) CKD (chronic kidney disease) stage 4, GFR 15-29 ml/min SNOMED Code(s): 831483978 ICD Code: N18.4 - CHRONIC KIDNEY DISEASE, STAGE 4 (SEVERE) Status: Chronic Current Visit: No (10) HTN (hypertension) SNOMED Code(s): 83413794 ICD Code: I10 - ESSENTIAL (PRIMARY) HYPERTENSION Status: Chronic Current Visit: No Problem Details: Ran high into the 160s during hospitalization. After diuresis, reassess. Qualifiers: Hypertension type: essential hypertension (11) Hypothyroid SNOMED Code(s): 53823270 ICD Code: E03.9 - HYPOTHYROIDISM, UNSPECIFIED Status: Chronic Current Vi sit: No Problem Details: Recheck TSH,continue home meds Qualifiers: Hypothyroidism type: unspecified Qualified Code(s): E03.9 - Hypothyroidism, unspecified (12) Obesity SNOMED Code(s): 946467811, 952228821 ICD Code: E66.9 - OBESITY, UNSPECIFIED Status: Chronic Current Visit: No Qualifiers: Obesity type: due to excess calories Problem List Initiated/Reviewed/Updated: Yes Orders Last 24hrs: Active Orders 24 hr Category Date Time Status Admission Status [Patient Status] [ADT] Routine ADT 01/08/21 11:25 Active Patient Status [ADT] Routine ADT 01/08/21 12:49 Ordered Antiembolic Devices [RC] .Routine Care 01/08/21 12:50 Ordered Pulse Oximetry [RC] PRN Care 01/08/21 12:49 Ordered VTE/DVT Education [RC] Click to Edit Care 01/08/21 12:50 Ordered Vital Signs [RC] Q4H Care 01/08/21 12:49 Ordered Heart Healthy Diet [DIET] Diet 01/08/21 Dinner Ordered Aspirin [Ecotrin EC] Med 01/08/21 13:00 Ordered 81 mg PO DAILY Cholecalciferol (Vitamin D3) [Vitamin D3] Med 01/09/21 09:00 Ordered 2,000 unit PO DAILY Clopidogrel Bisulfate [Clopidogrel] Med 01/08/21 13:00 Ordered 75 mg PO DAILY Furosemide [Lasix] Med 01/08/21 13:15 Ordered 40 mg IVPUSH BID Iron,Carbonyl/Ascorbic Acid [Vitron-C Tablet] Med 01/08/21 18:00 Ordered 1 tab PO TIDMEALS Latanoprost [Xalatan] Med 01/08/21 21:00 Ordered 1 drop EYEBOTH BEDTIME Levothyroxine [Synthroid] Med 01/09/21 09:00 Ordered 100 mcg PO DAILY Multivitamins/Min/Ca/FA/Iron [Thera-M] Med 01/09/21 09:00 Ordered 1 tab PO DAILY Omeprazole [Omeprazole] Med 01/08/21 21:00 Ordered 20 mg PO BID@ Sodium Chloride 0.9% [Saline Flush] Med 01/08/21 11:24 Active 10 ml FLUSH ASDIRECTED PRN Tamsulosin [Flomax] Med 01/08/21 09:00 Ordered 0.4 mg PO DAILY amLODIPine/Benazepril [Lotrel 5-10 MG] Med 01/08/21 13:00 Ordered 1 cap PO DAILY atorvaSTATin [Lipitor] Med 01/08/21 13:00 Ordered 80 mg PO DAILY bisacodyL [Bisacodyl] Med 01/08/21 12:57 Ordered 10 mg PO DAILY PRN calcitrioL [Calcitriol] Med 01/09/21 09:00 Ordered 0.25 mcg PO DAILY metOLazone [Zaroxolyn] Med 01/08/21 13:03 Once 5 mg PO ONETIME ONE DVT/VTE Prophylaxis Reflex [OM.PC] Per Unit Routine Oth 01/08/21 12:49 Ordered Saline Lock Insert [OM.PC] Routine Oth 01/08/21 11:24 Ordered Resuscitation Status Routine Resus Stat 01/08/21 12:48 Ordered Medication Orders Furosemide (Furosemide 40 Mg/4 Ml Vial) 40 mg IVPUSH BID ARNULFO Metolazone (Metolazone 5 Mg Tab) 5 mg PO ONETIME ONE Stop: 01/08/21 13:04 Non-Formulary Medication (Amlodipine/Benazepril [Lotrel 5-10 Mg]) 1 cap PO DAILY ARNULFO Non-Formulary Medication (Aspirin [Ecotrin Ec]) 81 mg PO DAILY ARNULFO Non-Formulary Medication (Atorvastatin [Lipitor]) 80 mg PO DAILY ARNULFO Non-Formulary Medication (Bisacodyl [Bisacodyl]) 10 mg PO DAILY PRN PRN Reason: Constipation Non-Formulary Medication (Calcitriol [Calcitriol]) 0.25 mcg PO DAILY ARNULFO Non-Formulary Medication (Cholecalciferol (Vitamin D3) [Vitamin D3]) 2,000 unit PO DAILY ARNULFO Non-Formulary Medication (Clopidogrel Bisulfate [Clopidogrel]) 75 mg PO DAILY ARNULFO Non-Formulary Medication (Iron,Carbonyl/Ascorbic Acid [Vitron-C Tablet]) 1 tab PO TIDMEALS ARNULFO Non-Formulary Medication (Latanoprost [Xalatan]) 1 drop EYEBOTH BEDTIME ARNULFO Non-Formulary Medication (Levothyroxine [Synthroid]) 100 mcg PO DAILY ARNULFO Non-Formulary Medication (Multivitamins/Min/Ca/Fa/Iron [Thera-M]) 1 tab PO DAILY ARNULFO Non-Formulary Medication (Omeprazole [Omeprazole]) 20 mg PO BID@ ARNULFO Non-Formulary Medication (Tamsulosin [Flomax]) 0.4 mg PO DAILY [facility] Sodium Chloride (Sodium Chloride 0.9% 10 Ml Syringe) 10 ml FLUSH ASDIRECTED PRN PRN Reason: Keep Vein Open Last Admin: 01/08/21 11:29 Dose: 10 ml Documented by: CAR Assessment/Plan Comment:: 1. Acute exacerbation of congestive heart failure: Metolazone 5 mg followed by Lasix, IV, 40 mg twice daily. Daily weights. 2. Comorbidities: Continue home medications as above 3. DVT prophylaxis: SCDs at night, LOUANN hose during the day, out of bed for meals, ambulate daily 4. GI prophylaxis: Heart healthy diet, home medication omeprazole 5. Disposition: This is a chronic problem for this patient. We will continue with enhanced uresis as above. Recheck BNP in 2 days. Likely discharge in 2 days if patient shows significant improvement. Consider discharge with home metolazone to supplement oral Lasix at home
[2021-01-08] MEDS ORDERED: Benazepril 10 MG Tab PO ONE (14:15)
[2021-01-08] MEDS ORDERED: amLODIPine 5 MG Tab PO ONE (14:15)
[2021-01-08] MEDS: Furosemide 40 MG/4 ML VIAL IVPUSH SCH ×2 (15:18→20:32)
[2021-01-08] MEDS ORDERED: Non-Formulary Medication 1 Each (Iron,Carbonyl/Ascorbic Acid [Vitron-C Tablet] 1 EACH Tabl PO SCH (18:00)
[2021-01-08] MEDS: ATORVASTATIN 80 MG PO SCH (18:51)
[2021-01-08] MEDS: TAMSULOSIN 0.4 MG PO SCH (18:53)
[2021-01-08] MEDS: OMEPRAZOLE 20 MG PO SCH (20:30)
[2021-01-08] MEDS ORDERED: LATANOPROST EYEBOTH SCH (21:00)
[2021-01-09] MEDS: OMEPRAZOLE 20 MG PO SCH ×2 (07:01→20:32)
[2021-01-09] MEDS ORDERED: Non-Formulary Medication 1 Each (Cholecalciferol (Vitamin D3) [Vitamin D3] 2,000 UNIT Cap) PO SCH (09:00)
[2021-01-09] MEDS ORDERED: Non-Formulary Medication 1 Each (Levothyroxine [Synthroid] 100 MCG Tablet) PO SCH (09:00)
[2021-01-09] MEDS ORDERED: MULTIVITAMINS PO SCH (09:00)
[2021-01-09] MEDS ORDERED: IRON PO SCH (09:00)
[2021-01-09] MEDS ORDERED: [UNRECOGNIZED DRUG - OTHER] PO SCH (09:00)
[2021-01-09] MEDS: TAMSULOSIN 0.4 MG PO SCH (09:36)
[2021-01-09] MEDS: ATORVASTATIN 80 MG PO SCH (09:36)
[2021-01-09] MEDS: Furosemide 40 MG/4 ML VIAL IVPUSH SCH ×2 (09:54→20:32)
[2021-01-09] MEDS: Sodium Chloride 0.9% 10 ML Syringe FLUSH PRN ×2 (09:56→20:31)
--- NOTE | 2021-01-09 11:05 | PCM.PN ---
- General Info Date of Service: 01/09/21 Admission Dx/Problem (Free Text): Admission Diagnosis/Problem Admission Diagnosis/Problem Heart failure Functional Status: Reports: Pain Controlled, Tolerating Diet, Ambulating, Urinating - Review of Systems General: Reports: No Symptoms HEENT: Reports: No Symptoms Pulmonary: Reports: No Symptoms Cardiovascular: Reports: No Symptoms Gastrointestinal: Reports: No Symptoms Genitourinary: Reports: Other (Scrotal swelling) Musculoskeletal: Reports: No Symptoms Skin: Reports: No Symptoms Neurological: Reports: No Symptoms Psychiatric: Reports: No Symptoms - Patient Data Vitals - Most Recent: Last Vital Signs Temp 36.9 C 01/09/21 04:00 Pulse 73 01/09/21 04:00 Resp 18 01/09/21 04:00 BP 156/77 H 01/09/21 04:00 Pulse Ox 90 L 01/09/21 04:00 Weight - Most Recent: 127.187 kg Lab Results Last 24 Hours: Laboratory Results - last 24 hr 01/08/21 Range/Units 12:06 SARS-CoV-2 RNA (YOVANY) Negative (NEGATIVE) Med Orders - Current: Current Medications Furosemide (Furosemide 40 Mg/4 Ml Vial) 40 mg IVPUSH BID [facility] Last Admin: 01/09/21 09:54 Dose: 40 mg Documented by: Non-Formulary Medication (Aspirin [Ecotrin Ec]) 81 mg PO DAILY [facility] Non-Formulary Medication (Bisacodyl [Bisacodyl]) 10 mg PO DAILY PRN PRN Reason: Constipation Non-Formulary Medication (Cholecalciferol (Vitamin D3) [Vitamin D3]) 2,000 unit PO DAILY [facility] Non-Formulary Medication (Iron,Carbonyl/Ascorbic Acid [Vitron-C Tablet]) 1 tab PO TIDMEALS [facility] Non-Formulary Medication (Latanoprost [Xalatan]) 1 drop EYEBOTH BEDTIME [facility] Non-Formulary Medication (Levothyroxine [Synthroid]) 100 mcg PO DAILY [facility] Non-Formulary Medication (Multivitamins/Min/Ca/Fa/Iron [Thera-M]) 1 tab PO DAILY [facility] (Amlodipine/Benazepril [Lotrel 5 -10 Mg] 1 Cap Cap)* Pt Own Med* 1 each PO DAILY [facility] Last Admin: 01/09/21 09:34 Dose: 1 each Documented by: (Atorvastatin [ Lipitor] 80 Mg Tablet)*Pt Own Med* 0 each PO DAILY [facility] Last Admin: 01/09/21 09:36 Dose: 80 each Documented by: (Calcitriol [ Calcitriol] 0.25 Mcg Capsule)*Pt Own Med * 0 each PO DAILY [facility] Last Admin: 01/09/21 09:34 Dose: 0.25 each Documented by: (Clopidogrel Bisulfate [ Clopidogrel] 75 Mg Tablet)*Pt Own Med* 0 each PO DAILY [facility] Last Admin: 01/09/21 09:35 Dose: 75 each Documented by: (Omeprazole [ Omeprazole] 20 Mg Cap.Cr)*Pt Own Med* 0 each PO BID@ [facility] Last Admin: 01/09/21 07:01 Dose: 1 each Documented by: (Tamsulosin [Flomax] 0.4 Mg Cap.Er)*Pt Own Med* 0 each PO DAILY [facility] Last Admin: 01/09/21 09:36 Dose: 0.4 each Documented by: Sodium Chloride (Sodium Chloride 0.9% 10 Ml Syringe) 10 ml FLUSH ASDIRECTED PRN PRN Reason: Keep Vein Open Last Admin: 01/09/21 09:56 Dose: 10 ml Documented by: Discontinued Medications Amlodipine Besylate (Amlodipine 5 Mg Tab) 5 mg PO ONETIME ONE Stop: 01/08/21 14:16 Last Admin: 01/08/21 14:19 Dose: 5 mg Documented by: Benazepril HCl (Benazepril 10 Mg Tab) 10 mg PO ONETIME ONE Stop: 01/08/21 14:16 Last Admin: 01/08/21 14:19 Dose: 10 mg Documented by: Furosemide (Furosemide 40 Mg/4 Ml Vial) 40 mg IVPUSH NOW ONE Stop: 01/08/21 11:13 Last Admin: 01/08/21 11:29 Dose: 40 mg Documented by: Metolazone (Metolazone 5 Mg Tab) 5 mg PO ONETIME ONE Stop: 01/08/21 13:04 Last Admin: 01/08/21 14:12 Dose: 5 mg Documented by: Comments:: Patient was able to sit up in bed and stand up without assistance. He is in good spirits and feels well. - Exam Quality Assessment: Supplemental Oxygen, DVT Prophylaxis, Skin Breakdown General: Alert, Oriented, Cooperative, No Acute Distress HEENT: Pupils Equal Neck: Supple Lungs: Crackles Cardiovascular: Regular Rate, Regular Rhythm GI/Abdominal Exam: Normal Bowel Sounds, Soft, Non-Tender Back Exam: Normal Inspection. No: CVA Tenderness (R) Extremities: Pedal Edema Peripheral Pulses: 2+: Radial (L), Radial (R) Skin: Other (Stasis dermatitis left lower leg) Wound/Incisions: Other (Venous stasis ulcers left lower extremity) Neurological: No New Focal Deficit Psy/Mental Status: Alert, Normal Affect, Normal Mood - Patient Data Lab Results Last 24 hrs: Laboratory Results - last 24 hr 01/08/21 Range/Units 12:06 SARS-CoV-2 RNA (YOVANY) Negative (NEGATIVE) Result Diagrams: 01/08/21 10:10 01/08/21 10:10 Sepsis Event Note - Evaluation Sepsis Screening Result: No Definite Risk - Focused Exam Vital Signs: Vital Signs Temp Pulse Resp BP Pulse Ox 01/09/21 04:00 36.9 C 73 18 156/77 H 90 L 01/09/21 00:00 36.3 C 56 L 19 166/78 H 90 L - Problem List & Annotations (1) Acute exacerbation of CHF (congestive heart failure) SNOMED Code(s): 337796456, 43411642976296 Code(s): I50.9 - HEART FAILURE, UNSPECIFIED Status: Acute Current Visit: Yes (2) Acute on chronic renal failure SNOMED Code(s): 862201193 Code(s): N17.9 - ACUTE KIDNEY FAILURE, UNSPECIFIED; N18.9 - CHRONIC KIDNEY DISEASE, UNSPECIFIED Status: Acute Current Visit: Yes (3) Edema of scrotum SNOMED Code(s): 27682560 Code(s): N50.89 - OTHER SPECIFIED DISORDERS OF THE MALE GENITAL ORGANS Status: Acute Current Visit: Yes (4) Diabetes type 2, controlled SNOMED Code(s): 06652240, 905695001 Code(s): E11.9 - TYPE 2 DIABETES MELLITUS WITHOUT COMPLICATIONS Status: Chronic Current Visit: No Qualifiers: Diabetes mellitus chcf insulin use: with chcf use Diabetes mellitus complication status: with kidney complications Chronic kidney disease stage: stage 3 (moderate) Annotation/Comment:: Continue once daily insulin at home. (5) Palliative care encounter SNOMED Code(s): 703616944, 673670204 Code(s): Z51.5 - ENCOUNTER FOR PALLIATIVE CARE Status: Acute Current Visit: No (6) SOBOE (shortness of breath on exertion) SNOMED Code(s): 51838078 Code(s): R06.02 - SHORTNESS OF BREATH Status: Acute Current Visit: No Annotation/Comment:: Obtain Echo,BNP.Start Lasix IV. (7) Weight gain Status: Acute Current Visit: No (8) Anemia SNOMED Code(s): 496726594 Code(s): D64.9 - ANEMIA, UNSPECIFIED Status: Chronic Current Visit: No Qualifiers: Anemia type: due to chronic kidney disease Chronic kidney disease stage: stage 4 (severe) Qualified Code(s): N18.4 - Chronic kidney disease, stage 4 (severe); D63.1 - Anemia in chronic kidney disease (9) CKD (chronic kidney disease) stage 4, GFR 15-29 ml/min SNOMED Code(s): 879575264 Code(s): N18.4 - CHRONIC KIDNEY DISEASE, STAGE 4 (SEVERE) Status: Chronic Current Visit: No (10) HTN (hypertension) SNOMED Code(s): 48861394 Code(s): I10 - ESSENTIAL (PRIMARY) HYPERTENSION Status: Chronic Current Visit: No Qualifiers: Hypertension type: essential hypertension Annotation/Comment:: Ran high into the 160s during hospitalization. After diuresis, reassess. (11) Hypothyroid SNOMED Code(s): 98421329 Code(s): E03.9 - HYPOTHYROIDISM, UNSPECIFIED Status: Chronic Current Visit: No Qualifiers: Hypothyroidism type: unspecified Qualified Code(s): E03.9 - Hypothyroidism, unspecified Annotation/Comment:: Recheck TSH,continue home meds (12) Obesity SNOMED Code(s): 616818878, 319509056 Code(s): E66.9 - OBESITY, UNSPECIFIED Status: Chronic Current Visit: No Qualifiers: Obesity type: due to excess calories - Problem List Review Problem List Initiated/Reviewed/Updated: Yes - My Orders Last 24 Hours: My Active Orders 01/08/21 12:48 Resuscitation Status Routine 01/08/21 12:49 Patient Status [ADT] Routine Pulse Oximetry [RC] PRN Vital Signs [RC] 00,04,08,12,16,20 DVT/VTE Prophylaxis Reflex [OM.PC] Per Unit Routine 01/08/21 12:50 Antiembolic Devices [RC] .Routine 01/08/21 12:57 bisacodyL [Bisacodyl] 10 mg PO DAILY PRN 01/08/21 13:00 Aspirin [Ecotrin EC] 81 mg PO DAILY 01/08/21 13:15 Furosemide [Lasix] 40 mg IVPUSH BID 01/08/21 Dinner Heart Healthy Diet [DIET] 01/08/21 18:00 Iron,Carbonyl/Ascorbic Acid [Vitron-C Tablet] 1 tab PO TIDMEALS 01/08/21 18:30 Patient's Own Medication [Ptom] 0 each PO DAILY Patient's Own Medication [Ptom] 0 each PO DAILY 01/08/21 18:45 Patient's Own Medication [Ptom] 0 each PO DAILY Patient's Own Medication [Ptom] 0 each PO DAILY Patient's Own Medication [Ptom] 1 each PO DAILY 01/08/21 21:00 Latanoprost [Xalatan] 1 drop EYEBOTH BEDTIME Patient's Own Medication [Ptom] 0 each PO BID@01/09/21 09:00 Cholecalciferol (Vitamin D3) [Vitamin D3] 2,000 unit PO DAILY Levothyroxine [Synthroid] 100 mcg PO DAILY Multivitamins/Min/Ca/FA/Iron [Thera-M] 1 tab PO DAILY 01/10/21 BASIC METABOLIC PANEL,BMP [CHEM] Routine CBC WITH AUTO DIFF [HEME] Routine PRO B-TYPE NATRIUR PEPT,BNPPRO [CHEM] Routine - Plan Plan:: 1. Acute exacerbation of congestive heart failure: Metolazone 5 mg followed by Lasix, IV, 40 mg twice daily. Daily weights. 2. Comorbidities: Continue home medications as above 3. DVT prophylaxis: SCDs at night, LOUANN hose during the day, out of bed for meals, ambulate daily 4. GI prophylaxis: Heart healthy diet, home medication omeprazole 5. Disposition: This is a chronic problem for this patient. After extensive and pleasant conversation today it seems likely that the patient's diet was a major contributor to this exacerbation. We will continue with enhanced diuresis as above. Likely discharge [facility] if patient shows significant improvement. Consider discharge with home metolazone to supplement oral Lasix at home. Discussed strategies with the patient of weighing himself daily in a similar fashion and taking metolazone as needed to ensure that he maintains his weight as well as restricting his diet to prevent future exacerbations.
[2021-01-10] MEDS: OMEPRAZOLE 20 MG PO SCH (06:07)
--- NOTE | 2021-01-10 07:27 | PCM.DCSUM1 ---
Discharge Summary - Hospital Course Free Text/Narrative:: Mr. Hartmann is a 65-year-old gentleman with a past medical history that is significant for diabetes mellitus type 2 that has been at times uncontrolled. His comorbidities are progressive including congestive heart failure with history of PTCI currently on Plavix. 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 Again on this admission he has an exacerbation of congestive heart failure causing swelling in his scrotum and shortness of breath with significantly increased BNP. Cute reactive ischemia was ruled out. Patient did have an acute kidney injury. Patient was given metolazone p.o. and IV Lasix which caused further reduction in GFR increased creatinine. Patient weight has decreased, swelling in scrotum has decreased, breathing has improved, and BNP has decreased. Patient requested discharge to home today. Diagnosis: Stroke: No - Discharge Data Discharge Date: 01/10/21 Discharge Disposition: Home, Self-Care 01 Condition: Fair - Referral to Home Health Primary Care Physician: Funmi Junior NP - Discharge Diagnosis/Problem(s) (1) Acute exacerbation of CHF (congestive heart failure) SNOMED Code(s): 057988872, [id number] ICD Code: I50.9 - HEART FAILURE, UNSPECIFIED Status: Acute Current Visit: Yes (2) Acute on chronic renal failure SNOMED Code(s): 416394581 ICD Code: N17.9 - ACUTE KIDNEY FAILURE, UNSPECIFIED; N18.9 - CHRONIC KIDNEY DISEASE, UNSPECIFIED Status: Acute Current Visit: Yes (3) Edema of scrotum SNOMED Code(s): 96731366 ICD Code: N50.89 - OTHER SPECIFIED DISORDERS OF THE MALE GENITAL ORGANS Status: Acute Current Visit: Yes (4) Diabetes type 2, controlled SNOMED Code(s): 92972284, 641724486 ICD Code: E11.9 - TYPE 2 DIABETES MELLITUS WITHOUT COMPLICATIONS Status: Chronic Current Visit: No Problem Details: Continue once daily insulin at home. Qualifiers: Diabetes mellitus [facility] insulin use: with predatory animal exterminator use Diabetes mellitus complication status: with kidney complications Chronic kidney disease stage: stage 3 (moderate) (5) Palliative care encounter SNOMED Code(s): 532401997, 150725695 ICD Code: Z51.5 - ENCOUNTER FOR PALLIATIVE CARE Status: Acute Current Visit: No (6) SOBOE (shortness of breath on exertion) SNOMED Code(s): 89198579 ICD Code: R06.02 - SHORTNESS OF BREATH Status: Acute Current Visit: No Problem Details: Obtain Echo,BNP.Start Lasix IV. (7) Weight gain Status: Acute Current Visit: No (8) Anemia SNOMED Code(s): 194813623 ICD Code: D64.9 - ANEMIA, UNSPECIFIED Status: Chronic Current Visit: No Qualifiers: Anemia type: due to chronic kidney disease Chronic kidney disease stage: stage 4 (severe) Qualified Code(s): N18.4 - Chronic kidney disease, stage 4 (severe); D63.1 - Anemia in chronic kidney disease (9) CKD (chronic kidney disease) stage 4, GFR 15-29 ml/min SNOMED Code(s): 437928009 ICD Code: N18.4 - CHRONIC KIDNEY DISEASE, STAGE 4 (SEVERE) Status: Chronic Current Visit: No (10) HTN (hypertension) SNOMED Code(s): 51621949 ICD Code: I10 - ESSENTIAL (PRIMARY) HYPERTENSION Status: Chronic Current Visit: No Problem Details: Ran high into the 160s during hospitalization. After diuresis, reassess. Qualifiers: Hypertension type: essential hypertension (11) Hypothyroid SNOMED Code(s): 76425223 ICD Code: E03.9 - HYPOTHYROIDISM, UNSPECIFIED Status: Chronic Current Visit: No Problem Details: Recheck TSH,continue home meds Qualifiers: Hypothyroidism type: unspecified Qualified Code(s): E03.9 - Hypothyroidism, unspecified (12) Obesity SNOMED Code(s): 901423334, 878467014 ICD Code: E66.9 - OBESITY, UNSPECIFIED Status: Chronic Current Visit: No Qualifiers: Obesity type: due to excess calories - Patient Instructions Diet: Heart Healthy Diet, Low Sodium Driving: May Drive Today Showering/Bathing: May Shower Notify Provider of: Fever, Increased Pain, Swelling and Redness, Drainage, Nausea and/or Vomiting - Discharge Plan *PRESCRIPTION DRUG MONITORING PROGRAM REVIEWED*: Not Applicable *COPY OF PRESCRIPTION DRUG MONITORING REPORT IN PATIENT RUBINA: Not Applicable Prescriptions/Med Rec: metOLazone [Metolazone] 5 mg PO DAILY #30 tablet Home Medications: Home Meds Multivitamins/Min/Ca/FA/Iron [Thera-M] 1 tab PO DAILY 12/22/15 [History] Omeprazole 20 mg PO BID@12/22/15 [History] amLODIPine/Benazepril [Lotrel 5-10 MG] 1 cap PO DAILY 12/22/15 [History] Aspirin [Ecotrin EC] 81 mg PO DAILY 10/11/16 [History] Clopidogrel Bisulfate [Clopidogrel] 75 mg PO DAILY 10/11/16 [History] Levothyroxine [Synthroid] 100 mcg PO DAILY 10/11/16 [History] Cholecalciferol (Vitamin D3) [Vitamin D3] 2,000 unit PO DAILY 06/21/17 [History] Insulin Detemir [Levemir Flextouch] 20 units SUBCUT DAILY PRN 07/09/20 [History] Tamsulosin [Flomax] 0.4 mg PO DAILY 07/09/20 [History] atorvaSTATin [Lipitor] 80 mg PO DAILY 07/09/20 [History] calcitrioL [Calcitriol] 0.25 mcg PO DAILY 07/09/20 [History] Furosemide [Lasix] 40 mg PO BID@,01/08/21 [History] Iron,Carbonyl/Ascorbic Acid [Vitron-C Tablet] 1 tab PO TIDMEALS 01/08/21 [History] Latanoprost [Xalatan] 1 drop EYEBOTH BEDTIME 01/08/21 [History] bisacodyL [Bisacodyl] 10 mg PO DAILY PRN 01/08/21 [History] metOLazone [Metolazone] 5 mg PO DAILY #30 tablet 01/10/21 [Rx] Patient Handouts: Fall Prevention in Hospitals, Adult, Heart Failure Exacerbation, Venous Thromboembolism Prevention Forms: ED Department Discharge Referrals: Funmi Junior NP [Primary Care Provider] - - Discharge Summary/Plan Comment DC Time >30 min.: Yes Total # of Minutes for Discharge Time: 45 Discharge Summary/Plan Comment: I discussed at length with the patient the need to follow-up with his primary care physician and/or myself in the outpatient office. Discussed progression of his disease including progression of kidney disease which may require dialysis. Discussed the proper use of metolazone and Lasix at home. I informed him to take his metolazone 1 hour prior to taking his first dose of Lasix and to take 2 doses of Lasix until he returns to his baseline weight of between 250 to 255 pounds. Directed him to weigh himself daily preferably on the same scale to keep track of his weight. I strongly encouraged him to follow-up with nephrology. Patient should have renal function checked as well as scrotal swelling as an outpatient and is to follow-up with primary care and nephrology. - General Info Date of Service: 01/10/21 Admission Dx/Problem (Free Text: Admission Diagnosis/Problem Admission Diagnosis/Problem Heart failure Functional Status: Reports: Pain Controlled, Tolerating Diet, Ambulating, Urinating - Review of Systems General: Reports: No Symptoms HEENT: Reports: No Symptoms Pulmonary: Reports: No Symptoms Cardiovascular: Reports: No Symptoms Gastrointestinal: Reports: No Symptoms Genitourinary: Reports: Other (Scrotal swelling) Musculoskeletal: Reports: No Symptoms Skin: Reports: Other (Venous stasis ulcer left lower extremity) Neurological: Reports: No Symptoms Psychiatric: Reports: No Symptoms - Patient Data Vitals - Most Recent: Last Vital Signs Temp 36.8 C 01/10/21 04:00 Pulse 62 01/10/21 04:00 Resp 181 H 01/10/21 04:00 BP 156/92 H 01/10/21 04:00 Pulse Ox 91 L 01/10/21 04:00 Weight - Most Recent: 126.87 kg Lab Results - Last 24 hrs: Laboratory Results - last 24 hr 01/10/21 01/10/21 01/10/21 Range/Units 06:08 06:08 06:08 WBC 5.4 (3.2-10.1) x10-3/uL RBC 3.55 L (3.90-5.90) x10(6)uL Hgb 8.2 L (12.9-17.7) g/dL Hct 27.4 L (38.3-50.1) % MCV 77.3 L (80.8-98.7) fL MCH 23.2 L (27.0-33.3) pg MCHC 30.0 (28.7-35.3) g/dL RDW 18.6 H (12.4-15.0) % Plt Count 138 (117-477) x10(3)uL MPV 10.3 (6.7-11.0) fL Neut % (Auto) 65.4 (40.3-71.8) % Lymph % (Auto) 19.9 (15.8-45.3) % [place] % (Auto) 11.2 (5.5-15.2) % Eos % (Auto) 2.9 (0.1-6.8) % Baso % (Auto) 0.6 (0.3-3.8) % Neut # (Auto) 3.6 (1.7-6.9) x10-3/uL Lymph # (Auto) 1.1 (0.5-4.5) x10-3/uL [place] # (Auto) 0.6 (0.0-1.2) x10-3/uL Eos # (Auto) 0.2 (0.0-0.6) x10-3/uL Baso # (Auto) 0.0 (0.0-0.3) x10-3/uL Sodium 141 (135-145) mmol/L Potassium 5.8 H (3.5-5.3) mmol/L Chloride 110 (100-110) mmol/L Carbon Dioxide 23 (21-32) mmol/L BUN 69 H (7-18) mg/dL Creatinine 4.7 H* (0.70-1.30) mg/dL Est Cr Clr Drug Dosing 13.27 mL/min Estimated GFR (MDRD) 15 L (>60) BUN/Creatinine Ratio 14.7 (9-20) Glucose 112 (80-116) mg/dL Calcium 7.7 L (8.6-10.2) mg/dL NT-Pro-B Natriuret Pep 86478 H* (<=125) pg/mL Med Orders - Current: Current Medications Furosemide (Furosemide 40 Mg/4 Ml Vial) 40 mg IVPUSH BID [facility] Last Admin: 01/09/21 20:32 Dose: 40 mg Documented by: Non-Formulary Medication (Aspirin [Ecotrin Ec]) 81 mg PO DAILY [facility] Non-Formulary Medication (Bisacodyl [Bisacodyl]) 10 mg PO DAILY PRN PRN Reason: Constipation Non-Formulary Medication (Cholecalciferol (Vitamin D3) [Vitamin D3]) 2,000 unit PO DAILY [facility] Non-Formulary Medication (Iron,Carbonyl/Ascorbic Acid [Vitron-C Tablet]) 1 tab PO TIDMEALS [facility] Non-Formulary Medication (Latanoprost [Xalatan]) 1 drop EYEBOTH BEDTIME [facility] Non-Formulary Medication (Levothyroxine [Synthroid]) 100 mcg PO DAILY [facility] Non-Formulary Medication (Multivitamins/Min/Ca/Fa/Iron [Thera-M]) 1 tab PO DAILY [facility] (Amlodipine/Benazepril [Lotrel 5 -10 Mg] 1 Cap Cap)* Pt Own Med* 1 each PO DAILY [facility] Last Admin: 01/09/21 09:34 Dose: 1 each Documented by: (Atorvastatin [ Lipitor] 80 Mg Tablet)*Pt Own Med* 0 each PO DAILY [facility] Last Admin: 01/09/21 09:36 Dose: 80 each Documented by: (Calcitriol [ Calcitriol] 0.25 Mcg Capsule)*Pt Own Med * 0 each PO DAILY [facility] Last Admin: 01/09/21 09:34 Dose: 0.25 each Documented by: (Clopidogrel Bisulfate [ Clopidogrel] 75 Mg Tablet)*Pt Own Med* 0 each PO DAILY [facility] Last Admin: 01/09/21 09:35 Dose: 75 each Documented by: (Omeprazole [ Omeprazole] 20 Mg Cap.Cr)*Pt Own Med* 0 each PO BID@ [facility] Last Admin: 01/10/21 06:07 Dose: 1 each Documented by: (Tamsulosin [Flomax] 0.4 Mg Cap.Er)*Pt Own Med* 0 each PO DAILY [facility] Last Admin: 01/09/21 09:36 Dose: 0.4 each Documented by: Sodium Chloride (Sodium Chloride 0.9% 10 Ml Syringe) 10 ml FLUSH ASDIRECTED PRN PRN Reason: Keep Vein Open Last Admin: 01/09/21 20:31 Dose: 10 ml Documented by: Discontinued Medications Amlodipine Besylate (Amlodipine 5 Mg Tab) 5 mg PO ONETIME ONE Stop: 01/08/21 14:16 Last Admin: 01/08/21 14:19 Dose: 5 mg Documented by: Benazepril HCl (Benazepril 10 Mg Tab) 10 mg PO ONETIME ONE Stop: 01/08/21 14:16 Last Admin: 01/08/21 14:19 Dose: 10 mg Documented by: Furosemide (Furosemide 40 Mg/4 Ml Vial) 40 mg IVPUSH NOW ONE Stop: 01/08/21 11:13 Last Admin: 01/08/21 11:29 Dose: 40 mg Documented by: Metolazone (Metolazone 5 Mg Tab) 5 mg PO ONETIME ONE Stop: 01/08/21 13:04 Last Admin: 01/08/21 14:12 Dose: 5 mg Documented by: Comments:: Patient was lying in bed awake, alert, pleasant, cooperative, preparing to eat breakfast. He wants to go home today. - Exam Quality Assessment: Reports: Supplemental Oxygen, DVT Prophylaxis General: Reports: Alert, Oriented, Cooperative, No Acute Distress HEENT: Reports: EOMI Neck: Reports: Supple Lungs: Reports: Normal Respiratory Effort, Crackles Cardiovascular: Reports: Regular Rate, Regular Rhythm, Gallops GI/Abdominal Exam: Normal Bowel Sounds, Non-Tender (Male) Exam: Scrotal Swelling, Other (Scrotal swelling mildly improved) Back Exam: Reports: Normal Inspection Extremities: Pedal Edema Skin: Reports: Other (Left lower extremity stasis dermatitis) Wound/Incisions: Reports: Drainage, Erythema, Other (Lower extremity stasis dermatitis with venous stasis ulcers) Neurological: Reports: No New Focal Deficit Psy/Mental Status: Reports: Alert, Normal Affect, Normal Mood
[2021-01-10] MEDS: TAMSULOSIN 0.4 MG PO SCH (08:11)
[2021-01-10] MEDS: ATORVASTATIN 80 MG PO SCH (08:11)
[2021-01-10] MEDS ORDERED: Metolazone 5 MG Tab PO STA (08:15)
[2021-01-10 09:02] VITALS: BP 118/72; PULSE 81
[2021-01-10] MEDS: Furosemide 40 MG/4 ML VIAL IVPUSH SCH (09:36)
[2021-01-10] MEDS: Sodium Chloride 0.9% 10 ML Syringe FLUSH PRN (09:44)
== END 2021-01-10 10:00 | disposition home or self-care (01) ==
LOC: FB.ED 09:35 → FB.MS 11:33
PROVIDERS: ADMIT Student in an Organized Health Care Education/Training Program; ATTEND Student in an Organized Health Care Education/Training Program
DX: I13.0 Hypertensive heart and chronic kidney disease with heart failure and stage 1 through stage 4 chronic kidney disease, or unspecified chronic kidney disease (principal); I50.9 Heart failure, unspecified; N17.9 Acute kidney failure, unspecified; N50.89 Other specified disorders of the male genital organs; E11.22 Type 2 diabetes mellitus with diabetic chronic kidney disease; R06.02 Shortness of breath; D63.1 Anemia in chronic kidney disease; E03.9 Hypothyroidism, unspecified; N18.4 Chronic kidney disease, stage 4 (severe); E66.9 Obesity, unspecified; Z79.899 Other long term (current) drug therapy; Z79.82 Long term (current) use of aspirin; Z79.4 Long term (current) use of insulin; Z79.890 Hormone replacement therapy; Z20.822 Contact with and (suspected) exposure to COVID-19
CPT/HCPCS: 36415; 80048; 80053; 83880; 84484; 85025; 96374; 96376; 99284; A9270; G0378; J1940; U0002

== ENCOUNTER 2022-01-05 20:28 | Emergency (ER) | payer MEDICARE ==
[2022-01-05 21:47] LABS: ESTIMATED GFR 5 mL/min (>60)
[2022-01-05 22:24] VITALS: BP 171/82; PULSE 87
== END 2022-01-05 22:19 | disposition home or self-care (01) ==
LOC: FB.ED 20:28
DX: R55 Syncope and collapse (principal); E11.319 Type 2 diabetes mellitus with unspecified diabetic retinopathy without macular edema; E78.00 Pure hypercholesterolemia, unspecified; E66.9 Obesity, unspecified; Z68.36 Body mass index [BMI] 36.0-36.9, adult; Z79.899 Other long term (current) drug therapy; Z79.82 Long term (current) use of aspirin; Z79.4 Long term (current) use of insulin; Z87.891 Personal history of nicotine dependence
CPT/HCPCS: 36415; 80053; 81001; 83735; 84484; 85025; 86140; 87086; 93005; 99284

== ENCOUNTER 2022-12-23 05:49 | Emergency (ER) | payer MEDICARE ==
[2022-12-23 06:38] VITALS: BP 193/106; PULSE 106
[2022-12-23 06:41] LABS: HEMATOCRIT 33.6 % (38.3-50.1); HEMOGLOBIN 10.8 g/dL (12.9-17.7); MEAN CORPUSCULAR HEMOGLOBIN 27.4 pg (27.0-33.3); MEAN CORPUSCULAR HGB CONC 32.1 g/dL (28.7-35.3); MEAN CORPUSCULAR VOLUME 85.5 fL (80.8-98.7); MEAN PLATELET VOLUME 10.5 fL (6.7-11.0); PLATELET COUNT,PLT 112 x10(3)uL (117-477); RED BLOOD CELL COUNT 3.93 x10(6)uL (3.90-5.90); RED CELL DISTRIBUTION WIDTH 15.5 % (12.4-15.0); WHITE BLOOD CELL COUNT,WBC 17.7 x10-3/uL (3.2-10.1)
[2022-12-23 06:59] LABS: A/G RATIO 0.6; ALANINE AMINOTRANSFERASE,ALT 50 U/L (12-36); ALKALINE PHOSPHATASE 125 IU/L (56-112); ASPARTATE AMNIOTRANSFERASE,AST 55 IU/L (5-25); BILIRUBIN TOTAL 0.7 mg/dL (0.1-1.3); BUN/CREATININE RATIO 7.7 (9-20); CARBON DIOXIDE,CO2 24 mmol/L (21-32); CHLORIDE,CL 93 mmol/L (100-110); EST CRCL DRUG DOSING (CG) 4.33 mL/min; ESTIMATED GFR 3 mL/min (>60); GLUCOSE RANDOM 241 mg/dL (80-116); POTASSIUM,K 5.6 mmol/L (3.5-5.3); PROTEIN TOTAL,TP 8.4 g/dL (6.0-8.0); SODIUM,NA 133 mmol/L (135-145)
[2022-12-23 07:02] LABS: BLOOD UREA NITROGEN,BUN 108 mg/dL (7-18)
[2022-12-23] MEDS ORDERED: hydrALAZINE 20 MG/ML SDV IVPUSH ONE (07:09)
[2022-12-23] MEDS ORDERED: Sodium Chloride 0.9% 500 ML IV ONE (07:09)
[2022-12-23 07:13] LABS: BAND PERCENT MAN 2 % (0-6); LYMPHOCYTES PERCENT MAN 9 % (13-37); MONOCYTES PERCENT MAN 4 % (4-12); SEG NEUTROPHILS PERCENT MAN 85 % (46-82)
[2022-12-23] MEDS ORDERED: Insulin Regular, Human 100 Units/ML 3 ML Vial IV ONE (08:01)
[2022-12-23] MEDS ORDERED: Glucagon,Human Recombinant 1 MG Vial IM PRN (08:01)
[2022-12-23] MEDS ORDERED: 50% Dextrose in Water 50 ML Syringe IVPUSH PRN (08:01)
[2022-12-23 08:21] LABS: BASE EXCESS VENOUS,POC -1 mmol/L (-2 - 3+); PCO2 VENOUS,POC 30 mmHg (41-51); PH VENOUS,POC 7.48 pH Units (7.32-7.43)
== END 2022-12-23 14:10 ==
LOC: FB.ED 05:49
DX: E11.59 Type 2 diabetes mellitus with other circulatory complications (principal); I13.0 Hypertensive heart and chronic kidney disease with heart failure and stage 1 through stage 4 chronic kidney disease, or unspecified chronic kidney disease; I50.9 Heart failure, unspecified; N18.4 Chronic kidney disease, stage 4 (severe); D63.1 Anemia in chronic kidney disease; M25.531 Pain in right wrist; E03.9 Hypothyroidism, unspecified; E87.20 Acidosis, unspecified; E66.01 Morbid (severe) obesity due to excess calories; Z68.35 Body mass index [BMI] 35.0-35.9, adult; Z79.4 Long term (current) use of insulin; Z89.519 Acquired absence of unspecified leg below knee; Z87.891 Personal history of nicotine dependence; Z95.5 Presence of coronary angioplasty implant and graft; Z79.02 Long term (current) use of antithrombotics/antiplatelets; Z79.82 Long term (current) use of aspirin; Z79.899 Other long term (current) drug therapy
CPT/HCPCS: 70450; 73110; 80053; 82550; 82947; 84550; 85025; 86140; 93005; 96361; 96374; 99285; J0360; J1642; J1815; J7040

== ENCOUNTER 2023-03-16 05:22 | Emergency (ER) | payer MEDICARE ==
[2023-03-16 05:49] LABS: BASOPHILS PERCENT AUTO 0.6 % (0.3-3.8); EOSINOPHILS PERCENT AUTO 0.2 % (0.1-6.8); HEMATOCRIT 36.7 % (38.3-50.1); HEMOGLOBIN 11.5 g/dL (12.9-17.7); LYMPHOCYTES ABSOLUTE AUTO 1.2 x10-3/uL (0.5-4.5); LYMPHOCYTES PERCENT AUTO 40.3 % (15.8-45.3); MEAN CORPUSCULAR HEMOGLOBIN 25.7 pg (27.0-33.3); MEAN CORPUSCULAR HGB CONC 31.3 g/dL (28.7-35.3); MEAN CORPUSCULAR VOLUME 82.1 fL (80.8-98.7); MEAN PLATELET VOLUME 8.5 fL (6.7-11.0); MONOCYTES ABSOLUTE AUTO 0.3 x10-3/uL (0.0-1.2); MONOCYTES PERCENT AUTO 10.8 % (5.5-15.2); NEUTROPHILS ABSOLUTE AUTO 1.4 x10-3/uL (1.7-6.9); NEUTROPHILS PERCENT AUTO 48.1 % (40.3-71.8); PLATELET COUNT,PLT 148 x10(3)uL (117-477); RED BLOOD CELL COUNT 4.47 x10(6)uL (3.90-5.90); RED CELL DISTRIBUTION WIDTH 17.1 % (12.4-15.0); WHITE BLOOD CELL COUNT,WBC 2.9 x10-3/uL (3.2-10.1)
[2023-03-16 05:59] LABS: A/G RATIO 0.6; ALANINE AMINOTRANSFERASE,ALT 18 U/L (12-36); ALBUMIN 3.2 g/dL (3.2-4.6); ALKALINE PHOSPHATASE 97 IU/L (56-112); ASPARTATE AMNIOTRANSFERASE,AST 32 IU/L (5-25); BILIRUBIN TOTAL 0.6 mg/dL (0.1-1.3); BLOOD UREA NITROGEN,BUN 63 mg/dL (7-18); BUN/CREATININE RATIO 5.3 (9-20); CALCIUM 8.5 mg/dL (8.6-10.2); CARBON DIOXIDE,CO2 30 mmol/L (21-32); CHLORIDE,CL 95 mmol/L (100-110); ESTIMATED GFR 4 mL/min (>60); GLUCOSE RANDOM 134 mg/dL (80-116); POTASSIUM,K 5.2 mmol/L (3.5-5.3); PROTEIN TOTAL,TP 8.6 g/dL (6.0-8.0); SODIUM,NA 136 mmol/L (135-145)
[2023-03-16 06:05] LABS: CREATININE 11.8 mg/dL (0.70-1.30); EST CRCL DRUG DOSING (CG) 5.14 mL/min
[2023-03-16 06:07] LABS: INR 1.13 (1.00-1.24); PROTHROMBIN TIME 11.6 sec (9.0-11.1)
[2023-03-16 06:09] LABS: PTT,PARTIAL THROMBOPLSTIN TIME 33.6 SECONDS (24.4-33.2); TROPONIN I 55.3 pg/mL (4.0-60.3); TSH ULTRASENSITIVE 3.03 IU/mL (0.36-3.74)
[2023-03-16] MEDS ORDERED: Ondansetron 4 MG/2 ML SDV IVPUSH ONE (06:12)
[2023-03-16] MEDS: Sodium Chloride 0.9% 10 ML Syringe FLUSH PRN ×2 (06:28→06:29)
[2023-03-16 06:44] LABS: INFLUENZA A NAA POSITIVE (NEGATIVE); INFLUENZA B NAA NEGATIVE (NEGATIVE)
[2023-03-16 06:49] LABS: CORONAVIRUS COVID-19 NAA NEGATIVE (NEGATIVE)
[2023-03-16] MEDS ORDERED: Morphine 4 MG/ML VIAL IVPUSH ONE (15:54)
[2023-03-16] MEDS ORDERED: Naloxone 0.4 MG/ML SDV IVPUSH PRN (15:54)
[2023-03-16 16:00] VITALS: PULSE 64
[2023-03-16 20:11] VITALS: BP 166/86
== END 2023-03-16 19:52 ==
LOC: FB.ED 05:22
DX: I50.9 Heart failure, unspecified (principal); N18.6 End stage renal disease; J10.1 Influenza due to other identified influenza virus with other respiratory manifestations; E78.00 Pure hypercholesterolemia, unspecified; E11.9 Type 2 diabetes mellitus without complications; E03.9 Hypothyroidism, unspecified; E66.9 Obesity, unspecified; Z99.2 Dependence on renal dialysis; Z20.822 Contact with and (suspected) exposure to COVID-19; Z87.891 Personal history of nicotine dependence; Z79.82 Long term (current) use of aspirin; Z79.899 Other long term (current) drug therapy; Z68.38 Body mass index [BMI] 38.0-38.9, adult
CPT/HCPCS: 0240U; 36415; 71045; 80053; 82947; 83880; 84443; 84484; 85025; 85610; 85730; 93005; 96374; 96375; 99285; J2270; J2405; J3490